=== PATIENT | male | born 1955 | race African-American/Black ===

== ENCOUNTER 2018-04-07 13:55 | Inpatient (IN) | payer OTHER, BC ==
[2018-04-07 14:04] VITALS: BMI 25.1
--- NOTE | 2018-04-07 14:42 | PDOC ---
Attending Attestation - HPI HPI: 04/07/18 16:19 The patient is a 63 year old male, with a significant PMH of hypertension, ESRD on dialysis M-W-, who presents to the emergency department with one day of oozing bleeding from left arm fistula after yesterday's dialysis session. The patient states he has gone through approx 8 bandages secondary to the left arm fistula bleeding. The patient denies chest pain, shortness of breath, headache and dizziness. Denies fever, chills, nausea, vomit, diarrhea and constipation. Denies dysuria, frequency, urgency and hematuria. Allergies: NKA <Akash Scott - Last Filed: 04/07/18 16:19> - Resident Resident Name: Rene Bailey - ED Attending Attestation I have performed the following: I have examined & evaluated the patient, The case was reviewed & discussed with the resident, I agree w/resident's findings & plan, Exceptions are as noted - Physicial Exam PE: 04/07/18 16:43 Agree with residents PE - Medical Decision Making 04/07/18 16:43 1 suture placed with good hemostasis under sterile conditions 5-0 nylon We'll check labs in the sitting 04/07/18 18:05 Reevaluation: Patient anemic INR 11 We will treat with vitamin K transfuse and admit to medicine for further management. Patient will require renal consultation for dialysis tomorrow. <Andrei Schneider - Last Filed: 04/07/18 18:07> Heart Score/ECG Review - ECG Impressions Comment:: 04/07/18 18:07 EKG performed at 1539 demonstrates sinus rhythm no ST elevations noted T-wave inversions. Interpreted by me. <Andrei Schneider - Last Filed: 04/07/18 18:07> Attestations - Attestations 04/07/18 16:19 Documentation prepared by Akash Scott, acting as medical and health services manager for Andrei Schneider MD. <Akash Scott - Last Filed: 04/07/18 16:19>
[2018-04-07 16:46] LABS: BASO % 0.5 % (0-2.0); EOS % 2.3 % (0-4.5); LYMPH % 12.4 % (8-40); MCH 33.9 pg (25.7-33.7); MEAN CELL VOLUME 102.9 fl (80-96); MEAN PLT VOLUME 7.7 fl (7.5-11.1); MONO % 9.1 % (3.8-10.2); NEUT % 75.7 % (42.8-82.8); PLATELET COUNT 256 K/MM3 (134-434); RBC 2.01 M/mm3 (4.00-5.60); RDW 15.5 % (11.9-15.9); WHITE BLOOD COUNT 9.7 K/mm3 (4.0-10.0)
[2018-04-07 16:58] LABS: HEMATOCRIT 20.7 % (35.4-49); HEMOGLOBIN 6.8 GM/dL (11.7-16.9)
--- NOTE | 2018-04-07 17:16 | PDOC ---
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 This has never happened before. The patient states he has gone through approx 8 bandages secondary to the left arm fistula bleeding. Also pt endorses feeling lightheaded and had a mechanical fall this morning but did not hit his head, he has not noticed any bruising on his body but does endorse R leg pain and difficulty ambulating w/ prosthetic. Pt says he did not take his warfarin last night. denies fevers, chills, cp,sob, EDDY, dizziness, n/v/d, numbness, tingling, weakness, dysuria, frequency, urgency and hematuria. PMH: as per hpi SH: denies smoke etoh drug use. ambulates w/ prosthetic FH: [place] ,[place] dad 69 Past History - Past Medical History Allergies/Adverse Reactions: Allergies Allergy/AdvReac Type Severity Reaction Status Date / Time No Known Allergies Allergy Verified 04/07/18 14:01 Home Medications: Ambulatory Orders Amlodipine Besylate 10 mg PO DAILY 04/07/18 Aspirin [ASA -] 81 mg PO DAILY 04/07/18 Atorvastatin Ca [Lipitor] 40 mg PO HS 04/07/18 B Complex W-C No.20/Folic Acid [Triphrocaps Softgel] 1 mg PO 04/07/18 Clopidogrel Bisulfate [Clopidogrel] 75 mg PO 04/07/18 Gabapentin 100 mg PO DAILY 04/07/18 Labetalol HCl [Normodyne -] 200 mg PO BID 04/07/18 Lisinopril [Prinivil -] 40 mg PO DAILY 04/07/18 Warfarin 9 mg PO DAILY 04/07/18 Zolpidem Tartrate [Ambien] 5 mg PO HS 04/07/18 Cardiac Disorders: Yes COPD: No Dialysis: Yes HTN: Yes Hypercholesterolemia: Yes - Surgical History Abdominal Surgery: Yes (HERNIA) - Suicide/Smoking/Psychosocial Hx Smoking History: Never smoked Have you smoked in the past 12 months: No Information on smoking cessation initiated: No Hx Alcohol Use: No Drug/Substance Use Hx: No Review of Systems - Review of Systems Constitutional: Yes: See HPI HEENTM: Yes: See HPI Respiratory: Yes: See HPI Cardiac (ROS): Yes: See HPI ABD/GI: Yes: See HPI : Yes: See HPI Musculoskeletal: Yes: See HPI Integumentary: Yes: See HPI Neurological: Yes: See HPI Endocrine: Yes: See HPI Hematologic/Lymphatic: Yes: See HPI *Physical Exam - Vital Signs Last Vital Signs Temp Pulse Resp BP Pulse Ox 97.8 F 79 18 121/64 100 04/07/18 14:01 04/07/18 14:01 04/07/18 14:01 04/07/18 14:01 04/07/18 14:01 - Physical Exam Comments: 04/07/18 17:42 General: NAD HEENT: NCAT, PERRLA, MMM, No erythema or exudates. conjunctival pallor Cardio: irregular irregular S1 S2 no m/r/g Lung: CTAB Abd: Soft +BS NTND EXT: radial pulses/DP/popliteal 2+. R BKA. RLE ttp at stump, no bruising or swelling, limb is warm. LUE AV fistula +bruit/thrill, blood oozing slowly at dialysis puncture site MSK: strength intact skin: grossly intact Neuro" AOX3, grossly intact ED Treatment Course - LABORATORY CBC & Chemistry Diagram: 04/07/18 16:18 04/07/18 16:18 - ADDITIONAL ORDERS Additional order review: 04/07/18 16:18 RBC 2.01 L MCV 102.9 H MCHC 33.0 RDW 15.5 MPV 7.7 Neutrophils % 75.7 Lymphocytes % 12.4 Monocytes % 9.1 Eosinophils % 2.3 Basophils % 0.5 - RADIOLOGY Radiology Studies Ordered: Category Date Time Status LEG TIB/FIB-RIGHT [RAD] Stat Radiology 04/07/18 14:34 Ordered Medical Decision Making - Medical Decision Making 04/07/18 17:49 63 year old M, with PMH of HTN, a-fib, ESRD on HD M-W-F, 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 -CBC, bmp, PT/INR -RLE xray -EKG 04/07/18 17:58 Hgb 6.8 w/ INR 11 will admit to inpatient hold warfarin will give vit K will obtain consent for 1U prbc 1 suture placed with good hemostasis under sterile conditions 5-0 nylon will add on PTT and CMP to labs FOBT 04/07/18 18:45 RLE xray shows no fracture 04/07/18 19:00 pt requesting to be transferred to [facility] where his care is. we called his PCP, Dr. lloyd [phone] to see if possible, waiting for call back. Pt refusing transfusion and rectal/FOBT until we here back from [facility] whether we can transfer. Explained the risks and benefits of transfusion. Pt has not signed consent yet and wants to wait on update w/ regards to possible transfer *DC/Admit/Observation/Transfer Diagnosis at time of Disposition: Bleeding diathesis, Abnormal INR - Referrals - Patient Instructions - Post Discharge Activity
[2018-04-07 17:31] LABS: INR 11.35 (0.83-1.09); PROTHROMBIN TIME (PATIENT) 128.3 SEC (9.7-13.0)
[2018-04-07] MEDS ORDERED: PHYTONADIONE 5 MG TABLET PO ONE (17:34)
[2018-04-07 17:40] LABS: ANION GAP 16 MMOL/L (8-16); BLOOD UREA NITROGEN 82 mg/dL (7-18); CHLORIDE 100 mmol/L (98-107); CO2 26 mmol/L (21-32); CREATININE 7.1 mg/dL (0.55-1.3); GLUCOSE,RANDOM 91 mg/dL (74-106); POTASSIUM 4.6 mmol/L (3.5-5.1); SODIUM 142 mmol/L (136-145)
[2018-04-07] MEDS ORDERED: PHYTONADIONE 5 MG TABLET ONE (17:42)
--- NOTE | 2018-04-07 20:27 | PDOC ---
*Physical Exam - Vital Signs Last Vital Signs Temp Pulse Resp BP Pulse Ox 98 F 77 18 129/74 98 04/07/18 20:04 04/07/18 20:04 04/07/18 20:04 04/07/18 20:04 04/07/18 20:04 ED Treatment Course - LABORATORY CBC & Chemistry Diagram: 04/07/18 16:18 04/07/18 20:45 - ADDITIONAL ORDERS Additional order review: Laboratory Results 04/07/18 04/07/18 04/07/18 16:18 16:18 16:18 PT with INR 128.30 H INR 11.35 H* Sodium 142 Potassium 4.6 Chloride 100 Carbon Dioxide 26 Anion Gap 16 BUN 82 H Creatinine 7.1 H Creat Clearance w eGFR 7.81 Random Glucose 91 Calcium 8.0 L Blood Type A POSITIVE Antibody Screen Negative 04/07/18 16:18 RBC 2.01 L MCV 102.9 H MCHC 33.0 RDW 15.5 MPV 7.7 Neutrophils % 75.7 Lymphocytes % 12.4 Monocytes % 9.1 Eosinophils % 2.3 Basophils % 0.5 - Medications Given in the ED: ED Medications Discontinued Medications Generic Name Dose Route Start Last Admin Trade Name Freq PRN Reason Stop Dose Admin Phytonadione 5 mg 04/07/18 17:34 04/07/18 18:05 Mephyton - PO 04/07/18 17:35 5 mg ONCE ONE Administration Medical Decision Making - Medical Decision Making 04/07/18 20:47 63yo M with ESRD presenting with bleeding left arm fistula, Hgb 6.8, INR=11 supratherapeutic. Patient initially refused to consent for transfusion because he preferred to receive his care at [facility] with his physician, Dr. Francis. Spoke with Dr. Francis who recommended patient staying at [facility]. Patient amenable to plan. Explained benefits and risks and patient voiced understanding. Consented patient for transfusion. Discussed case with Dr. Alvarado who will accept patient for admission. 04/07/18 20:47 *DC/Admit/Observation/Transfer Diagnosis at time of Disposition: Bleeding diathesis, Abnormal INR - Discharge Dispostion Condition at time of disposition: Guarded Decision to Admit order: Yes - Referrals - Patient Instructions - Post Discharge Activity
--- NOTE | 2018-04-07 20:44 | PN ---
Teaching Attending Note Name of Resident: Matthias Doan ATTENDING PHYSICIAN STATEMENT I saw and evaluated the patient. I reviewed the resident's note and discussed the case with the resident. I agree with the resident's findings and plan as documented. SUBJECTIVE: Patient presented c/o bleeding from dialysis access site and changing wound frequently. Patient reports getting up in the morning and feeling dizzy. Denies any chest pain, palpitations or SOB. PMH: HTN, DM2, ESRD on HD( MWF) OBJECTIVE: GEN: A&Ox3 NAD HEENT: NC, AT, PERRLA, EOMI CVS: RRR, S1, S2 LUNGS: CTA ABD: Soft NT, BS+, FOBT + Ext: Left AVF palpable thrill no active bleeding at time of examination, Nl ROM, , no Edema CBCD WBC 9.7 K/mm3 (4.0-10.0) 04/07/18 16:18 RBC 2.01 M/mm3 (4.00-5.60) L 04/07/18 16:18 Hgb 6.8 GM/dL (11.7-16.9) L* 04/07/18 16:18 Hct 20.7 % (35.4-49) L 04/07/18 16:18 MCV 102.9 fl (80-96) H 04/07/18 16:18 MCHC 33.0 g/dl (32.0-35.9) 04/07/18 16:18 RDW 15.5 % (11.9-15.9) 04/07/18 16:18 Plt Count 256 K/MM3 (134-434) 04/07/18 16:18 MPV 7.7 fl (7.5-11.1) 04/07/18 16:18 CMP Sodium 142 mmol/L (136-145) 04/07/18 16:18 Potassium 4.6 mmol/L (3.5-5.1) 04/07/18 16:18 Chloride 100 mmol/L (98-107) 04/07/18 16:18 Carbon Dioxide 26 mmol/L (21-32) 04/07/18 16:18 Anion Gap 16 MMOL/L (8-16) 04/07/18 16:18 BUN 82 mg/dL (7-18) H 04/07/18 16:18 Creatinine 7.1 mg/dL (0.55-1.3) H 04/07/18 16:18 Creat Clearance w eGFR 7.81 (>60) 04/07/18 16:18 Calcium 8.0 mg/dL (8.5-10.1) L 04/07/18 16:18 ASSESSMENT AND PLAN: Supratherapuetic INR VIt K given Hold warfarin Follow coag profile in AM Anemia secondary to acute blood loss Hemostasis achieved Type and screen Transfuse 1 unit pRBC Repeat CBC Consider GI consult as FOBT positive ESRD on HD ( MWF) Nephrology consulted for HD DVT prophylaxis no heparin as INR is supratherapeutic
--- NOTE | 2018-04-07 22:10 | HP ---
CHIEF COMPLAINT: PCP: Dr. Hicks [phone], [facility] HISTORY OF PRESENT ILLNESS: Pt is a 63 y/o gentleman with a significant past medical history of HTN, DM, right BKA 2/2 osteomyelitis, AFIB, and ESRD (HD on M/W/) who presented to [facility] this evening(04/07/18) c/o nonstop bleeding of his AV fistula located on his left arm. Pt endorses that he underwent HD yesterday afternoon around 1 pm and shortly after his session his fistula site began to bleed. Pt states he has used 8 bandages thus far as a result of the profuse bleeding. Pt awoke this am with blood oozing from his AV fistula. He has experienced bleeding from his AV fistula site before but not to this extent. Also endorses having fallen this afternoon on his right lower extremity stump after losing his balance while trying to grab an item from the top shelf in his kitchen. Pt denies any LOC or dizziness with his fall. ER course was notable for: (1) INR 11.35, H/H 6.8/20.7 respectively (2) + FOBT (3) Received 5 mg PO Vit-K in ED, Suture placed bleeding AV Fistula site. Recent Travel: Denies PAST MEDICAL HISTORY: Stent placement Aug 2017 s/p angiogram (on plavix). Pt states his A1c was 11.2% at some point but stopped taking his DM medications when his last a1c was around 5.5% PAST SURGICAL HISTORY: Hernia repair, Cataract Social History: Smoking: Denies Alcohol: Denies Drugs: Denies Family History: Dad (DM, from [place]), Mother(DM) Allergies No Known Allergies Allergy (Verified 04/07/18 14:01) HOME MEDICATIONS: Home Medications Medication Instructions Recorded Amlodipine Besylate 10 mg PO DAILY 04/07/18 Aspirin [ASA -] 81 mg PO DAILY 04/07/18 Atorvastatin Ca [Lipitor] 40 mg PO HS 04/07/18 B Complex W-C No.20/Folic Acid 1 mg PO 04/07/18 [Triphrocaps Softgel] Clopidogrel Bisulfate [Clopidogrel] 75 mg PO 04/07/18 Gabapentin 100 mg PO DAILY 04/07/18 Labetalol HCl [Normodyne -] 200 mg PO BID 04/07/18 Lisinopril [Prinivil -] 40 mg PO DAILY 04/07/18 Warfarin 9 mg PO DAILY 04/07/18 Zolpidem Tartrate [Ambien] 5 mg PO HS 04/07/18 REVIEW OF SYSTEMS CONSTITUTIONAL: Absent: fever, chills, diaphoresis, generalized weakness, malaise, loss of appetite, weight change HEENT: Absent: rhinorrhea, nasal congestion, throat pain, throat swelling, difficulty swallowing, mouth swelling, ear pain, eye pain, visual changes CARDIOVASCULAR: PRESENT: irregular heart rate, lightheadedness RESPIRATORY: Absent: cough, shortness of breath, dyspnea with exertion, orthopnea, wheezing, stridor, hemoptysis GASTROINTESTINAL: PRESENT: melena, GENITOURINARY: Absent: dysuria, frequency, urgency, hesitancy, hematuria, flank pain, genital pain MUSCULOSKELETAL: Absent: myalgia, arthralgia, joint swelling, back pain, neck pain SKIN: Absent: rash, itching, pallor HEMATOLOGIC/IMMUNOLOGIC: PRESENT: easy bleeding, easy bruising ENDOCRINE: Absent: unexplained weight gain, unexplained weight loss, heat intolerance, cold intolerance NEUROLOGIC: Absent: headache, focal weakness or paresthesias, dizziness, unsteady gait, seizure, mental status changes, bladder or bowel incontinence PSYCHIATRIC: Absent: anxiety, depression, suicidal or homicidal ideation, hallucinations. PHYSICAL EXAMINATION Vital Signs - 24 hr 04/07/18 04/07/18 14:01 20:04 Temperature 97.8 F 98 F Pulse Rate 79 Pulse Rate [ 77 Left] Respiratory 18 18 Rate Blood Pressure 121/64 Blood Pressure 129/74 [Arm] O2 Sat by Pulse 100 98 Oximetry (%) GENERAL: aaoX3, NAD HEAD: Nc/At EYES: PERRLA, EOMI, glasses EARS, NOSE, THROAT: MMM NECK: Supple LUNGS: CTA B/L HEART: Irregularly irregular ABDOMEN: Soft, ND, No HSM, NT, bruising left mid abdomen MUSCULOSKELETAL: Full ROM throughout UPPER EXTREMITIES: NO CCE LOWER EXTREMITIES: RIGHT BKA, NO ERYTHEMA OR INFECTION OF STUMP. WARM. NEUROLOGICAL: CN 2-12 INACT PSYCHIATRIC: Cooperative. Good eye contact. Appropriate mood and affect. SKIN: Warm, dry, normal turgor, no rashes or lesions noted. Laboratory Results - last 24 hr 04/07/18 04/07/18 04/07/18 16:18 16:18 16:18 WBC RBC Hgb Hct MCV MCH MCHC RDW Plt Count MPV Absolute Neuts (auto) Neutrophils % Lymphocytes % Monocytes % Eosinophils % Basophils % Nucleated RBC % PT with INR 128.30 H INR 11.35 H* PTT (Actin FS) Sodium 142 Potassium 4.6 Chloride 100 Carbon Dioxide 26 Anion Gap 16 BUN 82 H Creatinine 7.1 H Creat Clearance w eGFR 7.81 Random Glucose 91 Calcium 8.0 L Stool Occult Blood Blood Type A POSITIVE Antibody Screen Negative Crossmatch 04/07/18 04/07/18 04/07/18 16:18 16:18 20:45 WBC 9.7 RBC 2.01 L Hgb 6.8 L* Hct 20.7 L MCV 102.9 H MCH 33.9 H MCHC 33.0 RDW 15.5 Plt Count 256 MPV 7.7 Absolute Neuts (auto) 7.4 Neutrophils % 75.7 Lymphocytes % 12.4 Monocytes % 9.1 Eosinophils % 2.3 Basophils % 0.5 Nucleated RBC % 0 PT with INR INR PTT (Actin FS) 66.1 H Sodium Potassium Chloride Carbon Dioxide Anion Gap BUN Creatinine Creat Clearance w eGFR Random Glucose Calcium Stool Occult Blood Blood Type A POSITIVE Antibody Screen Crossmatch See Detail 04/07/18 21:25 WBC RBC Hgb Hct MCV MCH MCHC RDW Plt Count MPV Absolute Neuts (auto) Neutrophils % Lymphocytes % Monocytes % Eosinophils % Basophils % Nucleated RBC % PT with INR INR PTT (Actin FS) Sodium Potassium Chloride Carbon Dioxide Anion Gap BUN Creatinine Creat Clearance w eGFR Random Glucose Calcium Stool Occult Blood Positive Blood Type Antibody Screen Crossmatch ASSESSMENT/PLAN: 63 y/o gentleman with a significant past medical history of HTN, DM, right BKA 2 /2 osteomyelitis, AFIB, and ESRD (HD on //) who presented to [facility] this evening(04/07/18) c/o nonstop bleeding of his AV fistula located on his left arm. # Supratherapuetic INR -INR 11.35 on admission, repeat INR in am -H/H 6.8/20.7 on admission, repeat cbc in am -Hold Warfarin -Vit K when INR 9 or above, so VIT K given in ED Anemia 2/2 Acute Blood Loss or other unknown source? -Hemostasis achieved- suture applied in ED -Type and screen -Transfuse 1 unit pRBC -Repeat CBC in am G.I -Fecal Occult done in ED by myself, consider G.I consult. - Consider upper G.I Bleed as stool dark per patient and myself on exam ESRD on HD ( MWF) -Nephrology consulted for HD -Avoid Nephrotoxic agents DM -Repeat A1C -Pt off previous DM meds FEN DVT ppx SCD's FEN No Fluids Monitor Electrolytes Renal/Diabetic Diet Visit type - Emergency Visit Emergency Visit: Yes ED Registration Date: 04/07/18 Care time: The patient presented to the Emergency Department on the above date and was hospitalized for further evaluation of their emergent condition. - New Patient This patient is new to me today: Yes Date on this admission: 04/08/18 - Critical Care Critical Care patient: No Hospitalist Screening - Colonoscopy Questionnaire Colonoscopy Questionnaire: Colonoscopy Questionnaire - Patient: 50 - 75 years old and never had a screening colonoscopy: Unknown History of colon or rectal polyps, or CA: Unknown History of IBD, Crohn's disease or UC: Unknown History of abdominal radiation therapy as a child: Unknown - Relative: 1 with colon or rectal CA, or polyps at age 60 or younger: Unknown Colon or rectal CA diagnosed at age 45 or younger: Unknown Multiple relatives with colon or rectal CA: Unknown - Outcome: Screening Result: Negative Screen
[2018-04-07 22:46] LABS: ALK PHOS 50 U/L (45-117); ANION GAP 17 MMOL/L (8-16); BILIRUBIN,TOTAL 0.5 mg/dL (0.2-1); BLOOD UREA NITROGEN 89 mg/dL (7-18); CHLORIDE 100 mmol/L (98-107); CO2 24 mmol/L (21-32); GLUCOSE,RANDOM 154 mg/dL (74-106); POTASSIUM 4.4 mmol/L (3.5-5.1); SGOT/AST 20 U/L (15-37); SGPT/ALT 26 U/L (13-61); SODIUM 141 mmol/L (136-145); TOT PROT 5.7 g/dl (6.4-8.2)
[2018-04-07 22:47] LABS: CREATININE 7.6 mg/dL (0.55-1.3)
[2018-04-08] MEDS: LIDOCAINE 5% TOPICAL PATCH TP SCH ×2 (00:15→11:26)
[2018-04-08] MEDS: LIDOCAINE PATCH REMOVAL MC SCH ×2 (00:16→21:20)
[2018-04-08] MEDS ORDERED: MELATONIN 5 MG TABLETS PO ONE ×2 (01:42→20:40)
[2018-04-08 08:08] LABS: BASO % 0.7 % (0-2.0); EOS % 2.9 % (0-4.5); LYMPH % 16.7 % (8-40); MCH 32.7 pg (25.7-33.7); MCHC 33.3 g/dl (32.0-35.9); MEAN CELL VOLUME 98.3 fl (80-96); MEAN PLT VOLUME 7.9 fl (7.5-11.1); MONO % 9.1 % (3.8-10.2); NEUT % 70.6 % (42.8-82.8); PLATELET COUNT 210 K/MM3 (134-434); RBC 2.03 M/mm3 (4.00-5.60); RDW 18.3 % (11.9-15.9); WHITE BLOOD COUNT 9.6 K/mm3 (4.0-10.0)
[2018-04-08 08:20] LABS: HEMOGLOBIN 6.6 GM/dL (11.7-16.9)
[2018-04-08 08:22] LABS: PROTHROMBIN TIME (PATIENT) 73.5 SEC (9.7-13.0)
[2018-04-08 08:24] LABS: ACTIVATED PTT 56.9 SECONDS (25.2-36.5)
[2018-04-08 08:27] LABS: INR 6.5 (0.83-1.09)
[2018-04-08 09:14] LABS: ANION GAP 16 MMOL/L (8-16); BLOOD UREA NITROGEN 98 mg/dL (7-18); CALCIUM 7.8 mg/dL (8.5-10.1); CHLORIDE 100 mmol/L (98-107); CO2 26 mmol/L (21-32); GLUCOSE,RANDOM 74 mg/dL (74-106); MAGNESIUM 2.2 mg/dL (1.8-2.4); PHOSPHOROUS 5.4 mg/dL (2.5-4.9); POTASSIUM 4.8 mmol/L (3.5-5.1); SODIUM 141 mmol/L (136-145)
[2018-04-08 09:35] LABS: CREATININE 8.6 mg/dL (0.55-1.3)
[2018-04-08] MEDS ORDERED: FLU VACCINE QUAD 60 MCG/0.5 ML (MDV 18-19) IM ONE (10:00)
[2018-04-08] MEDS ORDERED: CLOPIDOGREL BISULFATE 75 MG TABLET (FP) PO SCH (10:00)
--- NOTE | 2018-04-08 10:12 | CON.GI ---
Consult Consult Specialty:: GI Referred by:: Hospitalist Service Reason for Consultation:: Anemia - History of Present Illness Chief Complaint: Bleeding from AV fistula History of Present Illness: 63M admitted for evaluation of persistent bleeding from left arm AV fistula. Hgb was noted to be 6.8 and INR 11.35. He was given vitamin K and INR 6.5 today. He was given 1 U PRBC last night and Hgb this morning was 6.6. Asked to evaluate anemia and guaiac positive stool. He is also maintained on Plavix and intermittently with aspirin for cardiac stent placed in of this year. Last took plavix wednesday morning. He denies nausea, vomiting, dysphagia, odynophagia, early satiety, significant reflux symptoms, abdominal pain, unintentional weight loss, overt rectal bleeding, change in bowel habits. His stool has been dark since starting iron earlier in the year. It is unclear what his baseline H/H is. He has never had an upper endoscopy or colonoscopy. There is no family history of colorectal cancer. He is to receive 1 U PRBC now and one during HD today. - History Source History Provided By: Patient, Medical Record Limitations to Obtaining History: No Limitations - Past Medical History Cardio/Vascular: Yes: AFIB, CAD (S/P cardiac stent or 10/27), HTN, Hyperlipdemia Renal/: Yes: Renal Failure (ESRD on HD M/W/F) Endocrine: Yes: Diabetes Mellitus (DM II) - Past Surgical History Past Surgical History: Yes: Amputation (Right BKA), Hernia Repair (right inguinal hernia repair) Additional Surgical History: Left arm AV fistula - Alcohol/Substance Use Hx Alcohol Use: No History of Substance Use: reports: None - Smoking History Smoking history: Never smoked Have you smoked in the past 12 months: No - Social History Usual Living Arrangement: Alone ADL: Independent 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 : [facility] History of Recent Travel: No Home Medications - Allergies Allergies/Adverse Reactions: Allergies Allergy/AdvReac Type Severity Reaction Status Date / Time No Known Allergies Allergy Verified 04/07/18 14:01 - Home Medications Home Medications: Ambulatory Orders Amlodipine Besylate 10 mg PO DAILY 04/07/18 Aspirin [ASA -] 81 mg PO DAILY 04/07/18 Atorvastatin Ca [Lipitor] 40 mg PO HS 04/07/18 B Complex W-C No.20/Folic Acid [Triphrocaps Softgel] 1 mg PO 04/07/18 Clopidogrel Bisulfate [Clopidogrel] 75 mg PO 04/07/18 Gabapentin 100 mg PO DAILY 04/07/18 Labetalol HCl [Normodyne -] 200 mg PO BID 04/07/18 Lisinopril [Prinivil -] 40 mg PO DAILY 04/07/18 Warfarin 9 mg PO DAILY 04/07/18 Zolpidem Tartrate [Ambien] 5 mg PO HS 04/07/18 Family Disease History - Family Disease History Family Disease History: Other: Father (: 69: [place]), Mother (: 69: diabetic complications), Brother (1, pancreatic cancer), Sister (1, healthy), Son (3, 1 with DM II), Daughter (1, healthy) Other Family History: No family history of colon cancer Review of Systems - Review of Systems Constitutional: denies: Chills Cardiovascular: denies: Chest Pain Respiratory: denies: Cough, SOB Physical Exam-GI Vital Signs: Vital Signs Temperature 98.3 F 04/08/18 06:00 Pulse Rate 85 04/08/18 06:00 Respiratory Rate 16 04/08/18 06:00 Blood Pressure 128/62 04/08/18 06:00 O2 Sat by Pulse Oximetry (%) 100 04/08/18 04:01 Constitutional: Yes: Calm Eyes: No: Sclera Icterus Cardiovascular: Yes: Regular Rate and Rhythm, Murmur (2/6 systolic murmur th the LSB) Respiratory: Yes: CTA Bilaterally Gastrointestinal Inspection: Yes: Scars (faint right inguinal scar). No: Distention, Hernia ...Auscultate: Yes: Normoactive Bowel Sounds ...Palpate: No: Hepatomegaly, Splenomegaly, Tenderness ...Percussion: No: Tympanitic ...Rectal Exam: Yes: Other (No external lesions, no masses, dark stool, guaiac positive, 2 + prostate) Extremities: Yes: Other (right BKA prosthesis) Edema: No (No LLE edema) Labs: CBC, BMP 04/08/18 07:00 04/08/18 07:00 INR, PTT INR 6.50 (0.83-1.09) H* 04/08/18 07:00 Problem List - Problems (1) Anemia Assessment/Plan: Likely multifactorial including ESRD, bleeding from AV fistula and GI blood losses in setting of supratherapeutic INR I discussed this from a GI standpoint with Mr. Hansen and explained that while having an INR that high can lead to bleeding from even small erosions or mucosal irritations in the GI tact, more significant pathologu such as PUD, bleeding blood vessels, polyps or cancers of the GI tgract such as colon cancer could not be excluded. His stool is dark but has been so since initiating iron therapy. To evaluate further, we discussed EGD/Colonoscopy when his INR permits. We discussed potential risks of the procedures like but not limited to bleeding, perforation requiring surgery to repair, infection and sedation medication effects all of which could be potentially life threatening. He has agreed to the procedures is they were felt to be medically necessary For now: Clear liquids Correct coagulopathy Protonix 40mg PO BID. If development of overt melena, change to PPI drip, keep NPO and transfer to ICU Discuss with cardiology re: need for continued Plavix at this time. Discussed with hospitalist service Plan for possible EGD/Colonoscopy Wednesday 04/11 Code(s): D64.9 - ANEMIA, UNSPECIFIED
--- NOTE | 2018-04-08 10:50 | PN ---
Progress Note (short form) - Note Progress Note: After further discussion, Mr. Hansen requesting to be transferred to [facility] as all his physicianss are there. I let his nurse know and I advised that he speak to his medical team regarding this. Problem List - Problems (1) Anemia Code(s): D64.9 - ANEMIA, UNSPECIFIED
[2018-04-08] MEDS ORDERED: SODIUM CHLORIDE 250 ML IV PRN (11:21)
[2018-04-08] MEDS: PANTOPRAZOLE 40 MG TABLET (FP) PO SCH ×2 (11:26→21:17)
--- NOTE | 2018-04-08 11:26 | EKG ---
Test Reason : Blood Pressure : / mmHG Vent. Rate : 073 BPM Atrial Rate : 073 BPM P-R Int : 164 ms QRS Dur : 082 ms QT Int : 412 ms P-R-T Axes : 045 008 046 degrees QTc Int : 453 ms NORMAL SINUS RHYTHM WITH SINUS ARRHYTHMIA NORMAL ECG NO PREVIOUS ECGS AVAILABLE Confirmed by SUJATA GRAY, MELY ([id number]) on 04/08/2018 11:25:37 AM Referred By: Confirmed By:MELY ERNST MD
--- NOTE | 2018-04-08 11:29 | CONSULT ---
Consult - text type - Consultation Consultation Note: Renal Consult for ESRD on HD This is a 63 year old gentleman with Hx of ESRD on HD (x 3 years secondary to diabetic nephropathy @ [facility] dialysis in [facility]), Hypertension, DM , PVD s/p right leg amputation, Afib on A/C who presented from home with bleeding from his AVF site and found to have INR of 11 and Hgb of 6. Pt denies any cp, sob, abd pain, N/V/D. Makes minimal urine at this time. s/p suture placement in AVF site yesterday with cessation of bleeding. Last HD was Wednesday. Has dark stools at home but is on oral iron supplement. PMHx: as above Allergies: NKDA Family Hx: NC Social hx: No T/A/D ROS: as per HPI Home Medications Medication Instructions Recorded Amlodipine Besylate 10 mg PO DAILY 04/07/18 Aspirin [ASA -] 81 mg PO DAILY 04/07/18 Atorvastatin Ca [Lipitor] 40 mg PO HS 04/07/18 B Complex W-C No.20/Folic Acid 1 mg PO 04/07/18 [Triphrocaps Softgel] Clopidogrel Bisulfate [Clopidogrel] 75 mg PO 04/07/18 Gabapentin 100 mg PO DAILY 04/07/18 Labetalol HCl [Normodyne -] 200 mg PO BID 04/07/18 Lisinopril [Prinivil -] 40 mg PO DAILY 04/07/18 Warfarin 9 mg PO DAILY 04/07/18 Zolpidem Tartrate [Ambien] 5 mg PO HS 04/07/18 Vital Signs Temperature 98.3 F 04/08/18 06:00 Pulse Rate 85 04/08/18 06:00 Respiratory Rate 16 04/08/18 06:00 Blood Pressure 128/62 04/08/18 06:00 O2 Sat by Pulse Oximetry (%) 100 04/08/18 04:01 Intake & Output 04/05/18 04/06/18 04/07/18 04/08/18 23:59 23:59 23:59 23:59 Intake Total 400 Balance 400 Weight 81.647 kg 81.647 kg NAD Awake and alert Neck supple, no JVD RRR, no M/R CTA, no rales soft NT/ND Right BKA No LE edema left arm AVF CBC, BMP 04/08/18 07:00 04/08/18 07:00 Current Medications Clopidogrel Bisulfate (Plavix -) 75 mg PO DAILY [facility] Last Admin: 04/08/18 10:27 Dose: Not Given Sodium Chloride (Normal Saline -) 250 mls @ 3,000 mls/hr IV PRN PRN PRN Reason: Hypotension during Dialysis Stop: 04/09/18 11:21 Lidocaine (Lidoderm Patch -) 1 patch TP DAILY [facility] Last Admin: 04/08/18 11:26 Dose: 1 patch Miscellaneous (Lidoderm Patch Removal) 1 each MC DAILY@2200 [facility] Last Admin: 04/08/18 00:16 Dose: Not Given Pantoprazole Sodium (Protonix -) 40 mg PO BID [facility] Last Admin: 04/08/18 11:26 Dose: 40 mg 63 year old gentleman with Hx of ESRD on HD (x 3 years secondary to diabetic nephropathy @ [facility] in [facility]), Hypertension, DM, PVD s/p right leg amputation, Afib on A/C who presented from home with bleeding from his AVF site and found to have INR of 11 and Hgb of 6. #Acute anemia from blood loss #Supratheraputic INR #ESRD on HD #Suspected GI bleed #Hypetension #DM getting 2nd PRBC transfusion now, will give additional unit with HD today HD today as per regular Rx Renal diet, 1.2L fluid restriction GI following Holding A/C Trend INR and H/H Can resume home BP meds if BP starts to run high check Fingerstcks Thank you Will follow Kenji Sung DO
--- NOTE | 2018-04-08 12:08 | CON.CARD ---
Consult Consult Specialty:: Cardiology Referred by:: Hospitalist Medicine Reason for Consultation:: Antiplatelet and anticoagulation guidance - History of Present Illness Chief Complaint: Left bleeding AVF History of Present Illness: 63M Hx of ESRD on HD (x 3 years secondary to diabetic nephropathy @ [facility] dialysis in [facility]), Hypertension, DM, PVD s/p right BKA, Afib on A/C with coumadin per INR, CAD s/p ALEC to prox RCA December 16, 2017 at [facility] (report [email or web address]) on Plavix presented from home with bleeding from his AVF site, guaiac positive stools and found to have INR of 11.35 and Hgb of 6.8, received vit K and 1 U pRBC with resultant Hgb 6.6 and INR 6.50. Patient reports fatigue , but denies any cp, sob, abd pain, N/V/D. Makes minimal urine at this time. s/ p suture placement in AVF site yesterday with cessation of bleeding. Last HD was Wednesday. Has dark stools at home but is on oral iron supplement. - Past Medical History Cardio/Vascular: Yes: AFIB, CAD (S/P cardiac stent or 10/27), HTN, Hyperlipdemia Renal/: Yes: Renal Failure (ESRD on HD M/W/) Endocrine: Yes: Diabetes Mellitus (DM II) - Past Surgical History Past Surgical History: Yes: Amputation (Right BKA), Hernia Repair (right inguinal hernia repair), Stent Additional Surgical History: Left arm AV fistula - Alcohol/Substance Use Hx Alcohol Use: No History of Substance Use: reports: None - Smoking History Smoking history: Never smoked Have you smoked in the past 12 months: No - Social History Usual Living Arrangement: Alone ADL: Independent 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 History of Recent Travel: No Home Medications - Allergies Allergies/Adverse Reactions: Allergies Allergy/AdvReac Type Severity Reaction Status Date / Time No Known Allergies Allergy Verified 04/07/18 14:01 - Home Medications Home Medications: Ambulatory Orders Amlodipine Besylate 10 mg PO DAILY 04/07/18 Aspirin [ASA -] 81 mg PO DAILY 04/07/18 Atorvastatin Ca [Lipitor] 40 mg PO HS 04/07/18 B Complex W-C No.20/Folic Acid [Triphrocaps Softgel] 1 mg PO 04/07/18 Clopidogrel Bisulfate [Clopidogrel] 75 mg PO 04/07/18 Gabapentin 100 mg PO DAILY 04/07/18 Labetalol HCl [Normodyne -] 200 mg PO BID 04/07/18 Lisinopril [Prinivil -] 40 mg PO DAILY 04/07/18 Warfarin 9 mg PO DAILY 04/07/18 Zolpidem Tartrate [Ambien] 5 mg PO HS 04/07/18 Family Disease History - Family Disease History Family Disease History: Other: Father (: 69: MD), Mother (: 69: diabetic complications), Brother (1, pancreatic cancer), Sister (1, healthy), Son (3, 1 with DM II), Daughter (1, healthy) Other Family History: No family history of colon cancer Review of Systems - Review of Systems Constitutional: reports: Weakness Eyes: reports: No Symptoms HENT: reports: No Symptoms Neck: reports: No Symptoms Cardiovascular: reports: No Symptoms Respiratory: reports: No Symptoms Gastrointestinal: reports: Other (Guaiac positive) Genitourinary: reports: No Symptoms Musculoskeletal: reports: No Symptoms Neurological: reports: Weakness Endocrine: reports: No Symptoms Hematology/Lymphatic: reports: Excessive Bleeding Vital Signs: Vital Signs Temperature 98.3 F 04/08/18 06:00 Pulse Rate 85 04/08/18 06:00 Respiratory Rate 16 04/08/18 06:00 Blood Pressure 128/62 04/08/18 06:00 O2 Sat by Pulse Oximetry (%) 100 04/08/18 04:01 Constitutional: Yes: No Distress, Calm, Thin Neck: Yes: Supple Respiratory: Yes: Regular, CTA Bilaterally Gastrointestinal: Yes: Normal Bowel Sounds, Soft Cardiovascular: Yes: Regular Rate and Rhythm JVD: No Carotid Bruit: No Heart Sounds: Yes: S1, S2 Extremities: Yes: Amputation (Right BKA) Edema: No - Other Data Labs, Other Data: CBC, BMP 04/08/18 07:00 04/08/18 07:00 INR, PTT INR 6.50 (0.83-1.09) H* 04/08/18 07:00 NSR @ [address]-T changes Prior Cardiac Procedures: PTCA with Stent Problem List - Problems (1) Presence of drug-eluting stent in right coronary artery Code(s): Z95.5 - PRESENCE OF CORONARY ANGIOPLASTY IMPLANT AND GRAFT (2) Coronary artery disease Code(s): I25.10 - ATHSCL HEART DISEASE OF [place] CORONARY ARTERY W/O ANG PCTRS Qualifiers: Coronary Disease-Associated Artery/Lesion type: [place] artery [place] vs. transplanted heart: [place] heart Associated angina: without angina Qualified Code(s): I25.10 - Atherosclerotic heart disease of [place] coronary artery without angina pectoris (3) Pre-procedural cardiovascular examination Code(s): Z01.810 - ENCOUNTER FOR PREPROCEDURAL CARDIOVASCULAR EXAMINATION (4) Supratherapeutic INR Code(s): R79.1 - ABNORMAL COAGULATION PROFILE (5) End-stage renal disease Code(s): N18.6 - END STAGE RENAL DISEASE (6) Hyperlipidemia Code(s): E78.5 - HYPERLIPIDEMIA, UNSPECIFIED Qualifiers: Hyperlipidemia type: pure hypercholesterolemia Qualified Code(s): E78.00 - Pure hypercholesterolemia, unspecified; E78.0 - Pure hypercholesterolemia (7) Hypertensive cardiomyopathy Code(s): I11.9 - HYPERTENSIVE HEART DISEASE WITHOUT HEART FAILURE; I43 - CARDIOMYOPATHY IN DISEASES CLASSIFIED ELSEWHERE Qualifiers: Heart failure presence: without heart failure Qualified Code(s): I11.9 - Hypertensive heart disease without heart failure; I43 - Cardiomyopathy in diseases classified elsewhere (8) Anemia Code(s): D64.9 - ANEMIA, UNSPECIFIED Qualifiers: Iron deficiency anemia type: chronic blood loss (9) Bleeding diathesis Code(s): D69.9 - HEMORRHAGIC CONDITION, UNSPECIFIED (10) Paroxysmal atrial fibrillation Code(s): I48.0 - PAROXYSMAL ATRIAL FIBRILLATION Assessment/Plan 12/16/2017 [facility]: ALEC 85% ostial and prox RCA 1. Acute anemia from blood loss DDX includes ESRD and uremic platelets and Plavix, bleeding from AV fistula and GI blood losses in setting of supratherapeutic INR 2. ESRD on HD (x 3 years secondary to diabetic nephropathy @ [facility] dialysis in [facility]) 3. CAD s/p ALEC pRCA 12/16/2017 4. Hypertension 5. Type 2 DM 6. Paroxysmal afib on coumadin per INR 7. PAD s/p right BKA 8. Hyperlipidemia P:1. Correcting coagulopathy, hold Plavix awaiting achievement of hemostasis, reviewed cath report from [facility] 2. Transfuse pRBC to maintain Hgb>8.0 3. HD per renal 4. Resume Lipitor 40 qhs, Labetolol 200 bid, Norvasc 10 qd and lisinopril 40 qd as hemodynamics tolerate 5. Given absence of symptoms of acute coronary syndrome, decompensated CHF and malignant arrhythmia, and recent coronary revascularization 12/16/2017, may proceed with EGD/colonoscopy without further cardiovascular testing. Given recent ALEC implantation, resume ASA 81 qd tanner-procedure once INR<2.0, otherwise resume Plavix 75 qd once INR<2.0 if procedures are not planned, agree with maintenance on Plavix alone without ASA while on concomitant anticoagulation. Consideration for switch from coumadin to Eliquis 5 bid given difficulty with INR control, d/w patient. 6. Protonix 40 bid per GI 7. Thank you for consultative opportunity
[2018-04-08 14:34] LABS: HEMATOCRIT 20.1 % (35.4-49); MCH 32.4 pg (25.7-33.7); MCHC 33.4 g/dl (32.0-35.9); MEAN PLT VOLUME 8.2 fl (7.5-11.1); PLATELET COUNT 202 K/MM3 (134-434); RBC 2.07 M/mm3 (4.00-5.60); RDW 18.1 % (11.9-15.9); WHITE BLOOD COUNT 10.2 K/mm3 (4.0-10.0)
[2018-04-08 14:42] LABS: HEMOGLOBIN 6.7 GM/dL (11.7-16.9)
--- NOTE | 2018-04-08 15:11 | PN ---
Progress Note (short form) - Note Progress Note: Hgb was 6.7 at start of dialysis despite 1 unit transfusion this am on the floor. Will give 2 units PRBC transfusion with HD. Kenji Sung DO
--- NOTE | 2018-04-08 17:58 | PN ---
Teaching Attending Note Name of Resident: Jessica Hodge ATTENDING PHYSICIAN STATEMENT I saw and evaluated the patient. I reviewed the resident's note and discussed the case with the resident. I agree with the resident's findings and plan as documented with exceptions below. SUBJECTIVE: patient seen and examined. Denies any chest pain, palpitations, dyspnea or dizziness. Denies any further bleeding for AV fistula site. Dark stools for months, reports since started on iron pills. No chest pain, palpitations, dyspnea or dizziness or abdominal pain noted. OBJECTIVE: Vital Signs Period Temp Pulse Resp BP Sys/Gonzáles Pulse Ox Last 24 Hr 97.6 F-98.5 F 74-88 16-19 114-179/51-100 98-100 Intake & Output 04/05/18 04/06/18 04/07/18 04/08/18 23:59 23:59 23:59 23:59 Intake Total 850 Balance 850 Weight 180 lb 180 lb General: sitting in bed in no acute distress CVS;S1S2 regular Chest; CTAB, no rales or wheezing Abdomen: soft, NT throughout, ND, positive bowel sounds Extremities: no edema, Left AV fistula site with 1 suture, no active bleed, clean band-aid noted Active Medications Clopidogrel Bisulfate (Plavix -) 75 mg PO DAILY [facility] Last Admin: 04/08/18 10:27 Dose: Not Given Sodium Chloride (Normal Saline -) 250 mls @ 3,000 mls/hr IV PRN PRN PRN Reason: Hypotension during Dialysis Stop: 04/09/18 11:21 Labetalol HCl (Normodyne -) 100 mg PO BID [facility] Lidocaine (Lidoderm Patch -) 1 patch TP DAILY [facility] Last Admin: 04/08/18 11:26 Dose: 1 patch Miscellaneous (Lidoderm Patch Removal) 1 each MC DAILY@2200 [facility] Last Admin: 04/08/18 00:16 Dose: Not Given Pantoprazole Sodium (Protonix -) 40 mg PO BID [facility] Last Admin: 04/08/18 11:26 Dose: 40 mg Laboratory Results - last 24 hr 04/07/18 04/07/18 04/07/18 16:18 16:18 20:45 WBC RBC Hgb Hct MCV MCH MCHC RDW Plt Count MPV Absolute Neuts (auto) Neutrophils % Lymphocytes % Monocytes % Eosinophils % Basophils % Nucleated RBC % PT with INR INR PTT (Actin FS) 66.1 H Sodium 141 Potassium 4.4 Chloride 100 Carbon Dioxide 24 Anion Gap 17 H BUN 89 H Creatinine 7.6 H* Creat Clearance w eGFR 7.22 POC Glucometer Random Glucose 154 H Calcium 8.0 L Phosphorus Magnesium Total Bilirubin 0.5 AST 20 ALT 26 Alkaline Phosphatase 50 Total Protein 5.7 L Albumin 3.0 L Stool Occult Blood Blood Type A POSITIVE Antibody Screen Negative Crossmatch 04/07/18 04/07/18 04/08/18 20:45 21:25 07:00 WBC 9.6 RBC 2.03 L Hgb 6.6 L* Hct 20.0 L MCV 98.3 H MCH 32.7 MCHC 33.3 RDW 18.3 H Plt Count 210 MPV 7.9 Absolute Neuts (auto) 6.8 Neutrophils % 70.6 Lymphocytes % 16.7 D Monocytes % 9.1 Eosinophils % 2.9 Basophils % 0.7 Nucleated RBC % 0 PT with INR INR PTT (Actin FS) Sodium Potassium Chloride Carbon Dioxide Anion Gap BUN Creatinine Creat Clearance w eGFR POC Glucometer Random Glucose Calcium Phosphorus Magnesium Total Bilirubin AST ALT Alkaline Phosphatase Total Protein Albumin Stool Occult Blood Positive Blood Type A POSITIVE Antibody Screen Crossmatch See Detail 04/08/18 04/08/18 04/08/18 07:00 07:00 07:17 WBC RBC Hgb Hct MCV MCH MCHC RDW Plt Count MPV Absolute Neuts (auto) Neutrophils % Lymphocytes % Monocytes % Eosinophils % Basophils % Nucleated RBC % PT with INR 73.50 H INR 6.50 H* PTT (Actin FS) 56.9 H Sodium 141 Potassium 4.8 Chloride 100 Carbon Dioxide 26 Anion Gap 16 BUN 98 H Creatinine 8.6 H* Creat Clearance w eGFR 6.26 POC Glucometer 92 Random Glucose 74 Calcium 7.8 L Phosphorus 5.4 H Magnesium 2.2 Total Bilirubin AST ALT Alkaline Phosphatase Total Protein Albumin Stool Occult Blood Blood Type Antibody Screen Crossmatch 04/08/18 13:55 WBC 10.2 H RBC 2.07 L Hgb 6.7 L* Hct 20.1 L MCV 97.0 H MCH 32.4 MCHC 33.4 RDW 18.1 H Plt Count 202 MPV 8.2 Absolute Neuts (auto) Neutrophils % Lymphocytes % Monocytes % Eosinophils % Basophils % Nucleated RBC % PT with INR INR PTT (Actin FS) Sodium Potassium Chloride Carbon Dioxide Anion Gap BUN Creatinine Creat Clearance w eGFR POC Glucometer Random Glucose Calcium Phosphorus Magnesium Total Bilirubin AST ALT Alkaline Phosphatase Total Protein Albumin Stool Occult Blood Blood Type Antibody Screen Crossmatch CXr results reviewed EKG NSR with sinus arrhythmia ASSESSMENT AND PLAN: 63 yom with PMHx of ESRD on HD (x 3 years secondary to diabetic nephropathy @ [facility] dialysis in [facility]), Hypertension, DM, PVD s/p right BKA, Afib on A/C with coumadin per INR, CAD s/p ALEC to prox RCA December 16, 2017 at [facility] on Plavix, admitted with bleeding from Av fistula site, coumadin coagulopathy (INR 11), and dark stools for months -Bleeding from AV fistula site s/p suture, hemostasis achieved -Coumadin coagulopathy, ?etiology, incorrect dosing -Acute on chronic anemia, from AV fistula bleed, r/o bleed/hematoma -Chronic dark stools, ?melena, reports since iron supplementation -ESRD on HD (being worked up for transplant) -HTN -NIDDM -PVD s/p Right BKA -CAD s/p ALEC to Prox RCA 12/16/2017 Plan: No further fistula site bleed. s/p 2 units of PRBC, unchanged Hb but hemodynamics stable, no gross evidence of bleed. Additional 2 units with HD today. Repeat h/h and INR. s/p vitamin K 5 mg in ED. No gross evidence of bleed, or hemodynamic instability. INR trending down, repeat later today, additional reversal accordingly. CT A/P to r/o hematoma. Monitor vitals closely. GI input appreciated. Clears, protonix BID. EGD/colonoscopy based on clinical course. Hypertensive now, resume labetalol with close monitoring. Hold amlodipine for now. ISS, diabetic diet. Cardiology input appreciated, ASA/plavix per Cardiology/GI and clinical course. Retrieve further info about recent coumadin dosing, INR check. ?incorrect administration. DVTPPX not currently indicated. Dispo patient requested transfer to [facility]. Called [facility] Transfer center, case discussed with Dr. Mejia. Called back, declined for transfer. Will monitor closely. Total care time spent including patient visit, discussion with Dr Sung, Dr. Quintero, [facility] transfer center and co-ordination of care 45 min.
[2018-04-08 18:58] LABS: HEMATOCRIT 24.8 % (35.4-49); HEMOGLOBIN 8.5 GM/dL (11.7-16.9); MCH 31.5 pg (25.7-33.7); MCHC 34.1 g/dl (32.0-35.9); MEAN CELL VOLUME 92.2 fl (80-96); MEAN PLT VOLUME 8.1 fl (7.5-11.1); PLATELET COUNT 225 K/MM3 (134-434); RDW 19.3 % (11.9-15.9); WHITE BLOOD COUNT 10.2 K/mm3 (4.0-10.0)
[2018-04-08] MEDS: LABETALOL HCL 100 MG TABLET (FP) PO SCH (19:00)
[2018-04-08 19:21] LABS: INR 3.83 (0.83-1.09); PROTHROMBIN TIME (PATIENT) 45.8 SEC (9.7-13.0)
--- NOTE | 2018-04-08 19:31 | PN ---
Physical Exam: SUBJECTIVE: Patient seen and examined at bedside this morning. Patient has no new complaints and reports no longer bleeding on the AV fistula. Patient denies chest pain, SOB, palpitations, abdominal pain, diarrhea, constipation. OBJECTIVE: Vital Signs Period Temp Pulse Resp BP Sys/Gonzáles Pulse Ox Last 24 Hr 97.6 F-98.5 F 74-88 16-19 114-179/51-100 98-100 GENERAL: The patient is awake, alert, and fully oriented, in no acute distress. HEAD: Normal with no signs of trauma. EYES: PERRLA, EOMI, sclera anicteric, conjunctiva clear. ENT: Ears normal, nares patent, oropharynx clear without exudates, moist mucous membranes. LUNGS: Breath sounds equal, clear to auscultation bilaterally, no wheezes, no crackles, no accessory muscle use. HEART: Regular rate and rhythm, S1, S2 without murmur, rub or gallop. ABDOMEN: Soft, nontender, nondistended, normoactive bowel sounds. EXTREMITIES: 2+ pulses, warm, well-perfused, no edema. Left AV fistula site: clean, no bleeding NEUROLOGICAL: Cranial nerves II through XII grossly intact. Normal speech, gait not observed. PSYCH: Normal mood, normal affect. SKIN: Warm, dry, normal turgor, no rashes or lesions noted Laboratory Results - last 24 hr 04/07/18 04/07/18 04/07/18 16:18 20:45 20:45 WBC RBC Hgb Hct MCV MCH MCHC RDW Plt Count MPV Absolute Neuts (auto) Neutrophils % Lymphocytes % Monocytes % Eosinophils % Basophils % Nucleated RBC % PT with INR INR PTT (Actin FS) 66.1 H Sodium 141 Potassium 4.4 Chloride 100 Carbon Dioxide 24 Anion Gap 17 H BUN 89 H Creatinine 7.6 H* Creat Clearance w eGFR 7.22 POC Glucometer Random Glucose 154 H Calcium 8.0 L Phosphorus Magnesium Total Bilirubin 0.5 AST 20 ALT 26 Alkaline Phosphatase 50 Total Protein 5.7 L Albumin 3.0 L Stool Occult Blood Blood Type A POSITIVE Crossmatch See Detail 04/07/18 04/08/18 04/08/18 21:25 07:00 07:00 WBC 9.6 RBC 2.03 L Hgb 6.6 L* Hct 20.0 L MCV 98.3 H MCH 32.7 MCHC 33.3 RDW 18.3 H Plt Count 210 MPV 7.9 Absolute Neuts (auto) 6.8 Neutrophils % 70.6 Lymphocytes % 16.7 D Monocytes % 9.1 Eosinophils % 2.9 Basophils % 0.7 Nucleated RBC % 0 PT with INR 73.50 H INR 6.50 H* PTT (Actin FS) 56.9 H Sodium Potassium Chloride Carbon Dioxide Anion Gap BUN Creatinine Creat Clearance w eGFR POC Glucometer Random Glucose Calcium Phosphorus Magnesium Total Bilirubin AST ALT Alkaline Phosphatase Total Protein Albumin Stool Occult Blood Positive Blood Type Crossmatch 04/08/18 04/08/18 04/08/18 07:00 07:17 13:55 WBC 10.2 H RBC 2.07 L Hgb 6.7 L* Hct 20.1 L MCV 97.0 H MCH 32.4 MCHC 33.4 RDW 18.1 H Plt Count 202 MPV 8.2 Absolute Neuts (auto) Neutrophils % Lymphocytes % Monocytes % Eosinophils % Basophils % Nucleated RBC % PT with INR INR PTT (Actin FS) Sodium 141 Potassium 4.8 Chloride 100 Carbon Dioxide 26 Anion Gap 16 BUN 98 H Creatinine 8.6 H* Creat Clearance w eGFR 6.26 POC Glucometer 92 Random Glucose 74 Calcium 7.8 L Phosphorus 5.4 H Magnesium 2.2 Total Bilirubin AST ALT Alkaline Phosphatase Total Protein Albumin Stool Occult Blood Blood Type Crossmatch 04/08/18 18:00 WBC 10.2 H RBC 2.70 L Hgb 8.5 L Hct 24.8 L D MCV 92.2 MCH 31.5 MCHC 34.1 RDW 19.3 H Plt Count 225 MPV 8.1 Absolute Neuts (auto) Neutrophils % Lymphocytes % Monocytes % Eosinophils % Basophils % Nucleated RBC % PT with INR INR PTT (Actin FS) Sodium Potassium Chloride Carbon Dioxide Anion Gap BUN Creatinine Creat Clearance w eGFR POC Glucometer Random Glucose Calcium Phosphorus Magnesium Total Bilirubin AST ALT Alkaline Phosphatase Total Protein Albumin Stool Occult Blood Blood Type Crossmatch Active Medications Generic Name Dose Route Start Last Admin Trade Name Freq PRN Reason Stop Dose Admin Clopidogrel Bisulfate 75 mg 04/08/18 10:00 04/08/18 10:27 Plavix - PO Not Given DAILY MIKAYLA Sodium Chloride 250 mls @ 3,000 mls/hr 04/08/18 11:21 Normal Saline - IV 04/09/18 11:21 PRN PRN Hypotension during Dialysis Labetalol HCl 100 mg 04/08/18 18:00 04/08/18 19:00 Normodyne - PO 100 mg BID MIKAYLA Administration Lidocaine 1 patch 04/07/18 21:30 04/08/18 11:26 Lidoderm Patch - TP 1 patch DAILY MIKAYLA Administration Miscellaneous 1 each 04/07/18 22:00 04/08/18 00:16 Lidoderm Patch Removal MC Not Given DAILY@2200 [facility] Pantoprazole Sodium 40 mg 04/08/18 10:45 04/08/18 11:26 Protonix - PO 40 mg BID MIKAYLA Administration ASSESSMENT/PLAN: Patient is a 63 year old male with past medical history of ESRD on HD ([facility]), HTN , DM, PVD, AFib on coumadin, CAD s/p ALEC on Plavix, presented with bleeding at AV fistula site with INR of 11. 35 # Supratherapuetic INR -INR 11.35 on admission, repeat INR 6.5 -Hgb 6.8, repeat Hgb s/p 1 unit pRBC 6.6 -Vit K given at the ED -transfuse 2 more units pRBC, repeat CBC -Patient for HD today. -Will give Vit K 2.5 with INR of >4 -Hold Warfarin for now. #Anemia: likely 2/2 Acute Blood Lossl; r/o GI overt blood loss -FOBT+ -Patient denies gross bleeding per rectum, but reports he has black stools since he started taking iron pills -GI (Dr. Stokes) consulted. Recommendations appreciated. -For EGD/COlonoscopy when INR is stable. -Clear liquids -Correct coagulopathy -Protonix 40mg BID. If development of overt melena, change to PPI drip, keep NPO and transfer to ICU -Plan for EGD/Colonoscopy on Saturday 04/21 -Hemostasis achieved- suture applied in ED -Transfuse Hgb >8. -Repeat CBC in am #ESRD on HD ( [facility]) -Nephrology (Dr. uSng) consulted. Recommendations appreciated. -For HD today. -Will receive 3rd unit pRBC while on dialysis -Repeat CBC and INR post-transfusion and dialysis -Renal diet, 1.2 L fluid restriction -Avoid Nephrotoxic agents #CAD s/p stent -Cardiology (Dr. Queen) consulted. Recommendations appreciated -Resume Lipitor 40, Labetolol 200mg BID, Norvasc 10mg daily as hemodynamics tolerate -Given absence of symptoms of ACS, decompensated CHF, malignant arrhythmia, and recent coronary revascularization 12/16/2017, may proceed with EGD/colonoscopy without further cardiovascular testing. -given recent ALEC implantation, resume ASA 81mg daily tanner-procedure once INR < 2.0, otherwise resume Plavix 75 mg daily once INR <2.0 if procedures are not planned, agree with maintenance on Plavix alone without ASA while on concomitant anticoagulation. -Consideration for switch from coumadin to Eliquis 5 mg BID given difficulty with INR control. #Atrial fibrillation: rate controlled -Hold warfarin for now -will monitor INR #DM -Pt off previous DM meds. -A1c pending. -Will continue to monitor. #Hypertension -Resume of home meds if BP is elevated -Monitor #FEN -Not on any standing fluids -Limit to 1.2L of fluid -electrolytes wnl, routine bmp monitoring -Renal/Diabetic diet #DVT ppx -SCD's #Disposition -admit to med-surg Visit type - Emergency Visit Emergency Visit: Yes ED Registration Date: 04/08/18 Care time: The patient presented to the Emergency Department on the above date and was hospitalized for further evaluation of their emergent condition. - New Patient This patient is new to me today: Yes Date on this admission: 04/08/18 - Critical Care Critical Care patient: No
[2018-04-09 08:19] LABS: BASO % 0.4 % (0-2.0); EOS % 2.5 % (0-4.5); HEMATOCRIT 24.2 % (35.4-49); HEMOGLOBIN 8.3 GM/dL (11.7-16.9); MCH 31.7 pg (25.7-33.7); MCHC 34.3 g/dl (32.0-35.9); MEAN CELL VOLUME 92.4 fl (80-96); MEAN PLT VOLUME 8.1 fl (7.5-11.1); MONO % 10.5 % (3.8-10.2); NEUT % 74.6 % (42.8-82.8); PLATELET COUNT 186 K/MM3 (134-434); RBC 2.62 M/mm3 (4.00-5.60); RDW 19.9 % (11.9-15.9); WHITE BLOOD COUNT 9.7 K/mm3 (4.0-10.0)
[2018-04-09 08:47] LABS: ALBUMIN 2.8 g/dl (3.4-5.0); ALK PHOS 48 U/L (45-117); ANION GAP 12 MMOL/L (8-16); BILIRUBIN,TOTAL 0.9 mg/dL (0.2-1); BLOOD UREA NITROGEN 46 mg/dL (7-18); CHLORIDE 102 mmol/L (98-107); CO2 29 mmol/L (21-32); CREATININE 5.6 mg/dL (0.55-1.3); GLUCOSE,RANDOM 76 mg/dL (74-106); MAGNESIUM 1.9 mg/dL (1.8-2.4); PHOSPHOROUS 4.4 mg/dL (2.5-4.9); SGOT/AST 24 U/L (15-37); SGPT/ALT 29 U/L (13-61); SODIUM 142 mmol/L (136-145); TOT PROT 5.5 g/dl (6.4-8.2)
--- NOTE | 2018-04-09 09:03 | PN ---
<Israel Mccormick - Last Filed: 04/09/18 14:22> Physical Exam: SUBJECTIVE: Patient seen and examined at bedside, no current complaints. Denies any bleeding, melena, hematochezia. Denies chest pain, SOB, nausea, vomiting, diarrhea, fevers, chills. OBJECTIVE: Vital Signs Period Temp Pulse Resp BP Sys/Gonzáles Pulse Ox Last 24 Hr 97.6 F-98.7 F 68-88 16-20 114-179/51-100 100 GENERAL: A&Ox3, no acute distress EYES: PERRLA, EOMI ENT: Moist mucus membranes NECK: No JVD LUNGS: CTA, no wheezes HEART: RRR, no murmurs ABDOMEN: Soft, nontender, BS present MUSCULOSKELETAL: No CVA Tenderness EXTREMITIES: 2+ pulses, no edema. NEUROLOGICAL: Cranial nerves II-XII intact. Laboratory Results - last 24 hr 04/07/18 04/08/18 04/08/18 20:45 07:00 13:55 WBC 10.2 H RBC 2.07 L Hgb 6.7 L* Hct 20.1 L MCV 97.0 H MCH 32.4 MCHC 33.4 RDW 18.1 H Plt Count 202 MPV 8.2 Absolute Neuts (auto) Neutrophils % Lymphocytes % Monocytes % Eosinophils % Basophils % Nucleated RBC % PT with INR INR Sodium 141 Potassium 4.8 Chloride 100 Carbon Dioxide 26 Anion Gap 16 BUN 98 H Creatinine 8.6 H* Creat Clearance w eGFR 6.26 Random Glucose 74 Calcium 7.8 L Phosphorus 5.4 H Magnesium 2.2 Total Bilirubin AST ALT Alkaline Phosphatase Total Protein Albumin Blood Type A POSITIVE Crossmatch See Detail 04/08/18 04/08/18 04/09/18 18:00 18:00 06:00 WBC 10.2 H RBC 2.70 L Hgb 8.5 L Hct 24.8 L D MCV 92.2 MCH 31.5 MCHC 34.1 RDW 19.3 H Plt Count 225 MPV 8.1 Absolute Neuts (auto) Neutrophils % Lymphocytes % Monocytes % Eosinophils % Basophils % Nucleated RBC % PT with INR 45.80 H INR 3.83 H Sodium 142 Potassium 4.0 Chloride 102 Carbon Dioxide 29 Anion Gap 12 BUN 46 H Creatinine 5.6 H Creat Clearance w eGFR 10.27 Random Glucose 76 Calcium 8.0 L Phosphorus 4.4 Magnesium 1.9 Total Bilirubin 0.9 AST 24 ALT 29 Alkaline Phosphatase 48 Total Protein 5.5 L Albumin 2.8 L Blood Type Crossmatch 04/09/18 07:00 WBC 9.7 RBC 2.62 L Hgb 8.3 L Hct 24.2 L MCV 92.4 MCH 31.7 MCHC 34.3 RDW 19.9 H Plt Count 186 MPV 8.1 Absolute Neuts (auto) 7.2 Neutrophils % 74.6 Lymphocytes % 12.0 D Monocytes % 10.5 H Eosinophils % 2.5 Basophils % 0.4 Nucleated RBC % 0 PT with INR INR Sodium Potassium Chloride Carbon Dioxide Anion Gap BUN Creatinine Creat Clearance w eGFR Random Glucose Calcium Phosphorus Magnesium Total Bilirubin AST ALT Alkaline Phosphatase Total Protein Albumin Blood Type Crossmatch Active Medications Generic Name Dose Route Start Last Admin Trade Name Freq PRN Reason Stop Dose Admin Sodium Chloride 250 mls @ 3,000 mls/hr 04/08/18 11:21 Normal Saline - IV 04/09/18 11:21 PRN PRN Hypotension during Dialysis Labetalol HCl 100 mg 04/08/18 18:00 04/08/18 19:00 Normodyne - PO 100 mg BID MIKAYLA Administration Lidocaine 1 patch 04/07/18 21:30 04/08/18 11:26 Lidoderm Patch - TP 1 patch DAILY MIKAYLA Administration Miscellaneous 1 each 04/07/18 22:00 04/08/18 21:20 Lidoderm Patch Removal MC 1 each DAILY@2200 MIKAYLA Administration Pantoprazole Sodium 40 mg 04/08/18 10:45 04/08/18 21:17 Protonix - PO 40 mg BID MIKAYLA Administration ASSESSMENT/PLAN: Patient is a 63 year old male with past medical history of ESRD on HD (MWF), HTN , DM, PVD, AFib on coumadin, CAD s/p ALEC on Plavix, presented with bleeding at AV fistula site with INR of 11. 35 #Supratherapuetic INR: INR improving, 2.47 today - 11.35 on admission -Will give Vit K 2.5 with INR of > 4 -Hold Warfarin. #Anemia: likely 2/2 Acute Blood Loss from GI, FOBT + -Hgb stable after 3 transfusions, repeat hgb 8.3 (8.5 yesterday) -continue to monitor CBC -GI (Dr. Stokes) consulted. Recommendations appreciated. -cardiology cleared for EGD/Colonoscopy, likely Wednesday pending INR stability -Clear liquid diet -Protonix 40mg BID -Plan for EGD/Colonoscopy on Saturday 04/21 -Transfuse Hgb > 8. #ESRD on HD (MWF): -Nephrology (Dr. Sung) following -s/p HD yesterday and 2 units prbc during dialysis and one prior -Repeat CBC and INR post-transfusion and dialysis -Renal diet, 1.2 L fluid restriction -Avoid Nephrotoxic agents #CAD s/p stent -Cardiology (Dr. Queen) following -continue Lipitor 40 -continue Labetolol 200mg BID -continue Norvasc 10mg QD -cardiac cleared for EGD/[place] -plavix alone without ASA while on anticoagulation -cardiology suggested transitioning to eliquis 5 BID due to INR control instability #Atrial fibrillation: rate controlled -Hold warfarin for now -will monitor INR #DM -not currently on standing meds -A1c pending. -Will continue to monitor. #Hypertension -resume labetalol and norvasc -Monitor #FEN -Not on any standing fluids -Limit to 1.2L of fluid -electrolytes wnl, routine bmp monitoring -Renal/Diabetic diet #DVT ppx -SCD's #Disposition -continue to monitor on med-surg Visit type - Emergency Visit Emergency Visit: No - New Patient This patient is new to me today: No - Critical Care Critical Care patient: No <Aditya Fleming - Last Filed: 04/09/18 14:55> Physical Exam: correction: possible EGD/colonoscopy 04/11.
[2018-04-09 09:20] LABS: INR 2.47 (0.83-1.09); PROTHROMBIN TIME (PATIENT) 29.4 SEC (9.7-13.0)
--- NOTE | 2018-04-09 09:51 | PN ---
Teaching Attending Note Name of Resident: Israel Mccormick ATTENDING PHYSICIAN STATEMENT I saw and evaluated the patient. I reviewed the resident's note and discussed the case with the resident. I agree with the resident's findings and plan as documented with exceptions below. SUBJECTIVE: Patient seen and examined. ongoing dark stools unchanged. No further bleeding from fistula site, no abdominal pain, chest pain, dyspnea, dizziness or new concerns. OBJECTIVE: Vital Signs Period Temp Pulse Resp BP Sys/Gonzáles Pulse Ox Last 24 Hr 97.6 F-98.7 F 68-88 16-20 114-179/51-100 100 Intake & Output 04/06/18 04/07/18 04/08/18 04/09/18 23:59 23:59 23:59 23:59 Intake Total 1300 450 Balance 1300 450 Weight 180 lb 180 lb 180 lb General: sitting in bed in no acute distress Chest: CTAB, no rales or wheezing Abdomen:soft, obese, NT throughout, positive bowel sounds Extermities: left AV fistula site clean dressing with no active bleed, no pedal edema noted Active Medications Sodium Chloride (Normal Saline -) 250 mls @ 3,000 mls/hr IV PRN PRN PRN Reason: Hypotension during Dialysis Stop: 04/09/18 11:21 Labetalol HCl (Normodyne -) 100 mg PO BID [facility] Last Admin: 04/08/18 19:00 Dose: 100 mg Lidocaine (Lidoderm Patch -) 1 patch TP DAILY [facility] Last Admin: 04/08/18 11:26 Dose: 1 patch Miscellaneous (Lidoderm Patch Removal) 1 each MC DAILY@2200 [facility] Last Admin: 04/08/18 21:20 Dose: 1 each Pantoprazole Sodium (Protonix -) 40 mg PO BID [facility] Last Admin: 04/08/18 21:17 Dose: 40 mg Laboratory Results - last 24 hr 04/07/18 04/08/18 04/08/18 20:45 13:55 18:00 WBC 10.2 H RBC 2.07 L Hgb 6.7 L* Hct 20.1 L MCV 97.0 H MCH 32.4 MCHC 33.4 RDW 18.1 H Plt Count 202 MPV 8.2 Absolute Neuts (auto) Neutrophils % Lymphocytes % Monocytes % Eosinophils % Basophils % Nucleated RBC % PT with INR 45.80 H INR 3.83 H Sodium Potassium Chloride Carbon Dioxide Anion Gap BUN Creatinine Creat Clearance w eGFR Random Glucose Calcium Phosphorus Magnesium Total Bilirubin AST ALT Alkaline Phosphatase Total Protein Albumin Blood Type A POSITIVE Crossmatch See Detail 04/08/18 04/09/18 04/09/18 18:00 06:00 07:00 WBC 10.2 H RBC 2.70 L Hgb 8.5 L Hct 24.8 L D MCV 92.2 MCH 31.5 MCHC 34.1 RDW 19.3 H Plt Count 225 MPV 8.1 Absolute Neuts (auto) Neutrophils % Lymphocytes % Monocytes % Eosinophils % Basophils % Nucleated RBC % PT with INR 29.40 H INR 2.47 H Sodium 142 Potassium 4.0 Chloride 102 Carbon Dioxide 29 Anion Gap 12 BUN 46 H Creatinine 5.6 H Creat Clearance w eGFR 10.27 Random Glucose 76 Calcium 8.0 L Phosphorus 4.4 Magnesium 1.9 Total Bilirubin 0.9 AST 24 ALT 29 Alkaline Phosphatase 48 Total Protein 5.5 L Albumin 2.8 L Blood Type Crossmatch 04/09/18 07:00 WBC 9.7 RBC 2.62 L Hgb 8.3 L Hct 24.2 L MCV 92.4 MCH 31.7 MCHC 34.3 RDW 19.9 H Plt Count 186 MPV 8.1 Absolute Neuts (auto) 7.2 Neutrophils % 74.6 Lymphocytes % 12.0 D Monocytes % 10.5 H Eosinophils % 2.5 Basophils % 0.4 Nucleated RBC % 0 PT with INR INR Sodium Potassium Chloride Carbon Dioxide Anion Gap BUN Creatinine Creat Clearance w eGFR Random Glucose Calcium Phosphorus Magnesium Total Bilirubin AST ALT Alkaline Phosphatase Total Protein Albumin Blood Type Crossmatch CT A/p results noted. ASSESSMENT AND PLAN: 63 yom with PMHx of ESRD on HD (x 3 years secondary to diabetic nephropathy @ [facility] dialysis in [facility]), Hypertension, DM, PVD s/p right BKA, Afib on A/C with coumadin per INR, CAD s/p ALEC to prox RCA December 16, 2017 at [facility] on Plavix, admitted with bleeding from Av fistula site, coumadin coagulopathy (INR 11), and dark stools for months -Bleeding from AV fistula site s/p suture, hemostasis achieved -Coumadin coagulopathy, ?etiology, incorrect dosing -Acute on chronic anemia, from AV fistula bleed, r/o GI bleed/hematoma -Chronic dark stools, ?melena, reports since iron supplementation -ESRD on HD (being worked up for transplant) -HTN -NIDDM -PVD s/p Right BKA -CAD s/p ALEC to Prox RCA 12/16/2017 Plan: No further fistula site bleed. s/p4 units pRBC. Hb stable this AM. Monitor h/h q12h and hemodynamics closely. INR drifting donw, monitor. Daily coags CT a/P neg for collection/hematoma. GI input appreciated. Clears, protonix BID. EGD/colonoscopy likely on Wednesday 04/11 based on clinical course. Labetalol at lower dose. Titrate up and resume amlodipine based on BP readings. ISS, diabetic diet. Cardiology input appreciated, ASA/plavix per Cardiology/GI and clinical course. Retrieve further info about recent coumadin dosing, INR check. ?incorrect administration. patient feels might have double dosed himself prior to admission. Does not take it on specific time. Counseled in detail about scheduling coumadin at fixed time of the day and additional reminder/alarm to ensure the same. DVTPPX not currently indicated. Dispo patient requested transfer to [facility]. Called [facility] Transfer center, case discussed with Dr. Mejia. Called back, declined for transfer. Will monitor closely. Plan discussed with patient in detail, all questions answered.
[2018-04-09] MEDS: LABETALOL HCL 100 MG TABLET (FP) PO SCH ×2 (10:02→21:14)
[2018-04-09] MEDS: PANTOPRAZOLE 40 MG TABLET (FP) PO SCH ×2 (10:02→21:15)
[2018-04-09] MEDS: LIDOCAINE 5% TOPICAL PATCH TP SCH (10:02)
--- NOTE | 2018-04-09 10:44 | PN ---
Progress Note (short form) - Note Progress Note: Renal follow up for ESRD on Hd Pt seen and examined at the bedside no acute complaints s/p Hd yesterday Vital Signs Temperature 98.5 F 04/09/18 08:00 Pulse Rate 76 04/09/18 08:00 Respiratory Rate 16 04/09/18 08:00 Blood Pressure 153/83 04/09/18 08:00 O2 Sat by Pulse Oximetry (%) 100 04/08/18 21:00 Intake & Output 04/06/18 04/07/18 04/08/18 04/09/18 23:59 23:59 23:59 23:59 Intake Total 1300 700 Balance 1300 700 Weight 81.647 kg 81.647 kg 81.647 kg NAD Awake and alert Neck supple, no JVD RRR, no M/R CTA, no rales soft NT/ND Right BKA No LE edema left arm AVF CBC, BMP 04/08/18 07:00 04/08/18 07:00 Current Medications Clopidogrel Bisulfate (Plavix -) 75 mg PO DAILY [facility] Last Admin: 04/08/18 10:27 Dose: Not Given Sodium Chloride (Normal Saline -) 250 mls @ 3,000 mls/hr IV PRN PRN PRN Reason: Hypotension during Dialysis Stop: 04/09/18 11:21 Lidocaine (Lidoderm Patch -) 1 patch TP DAILY [facility] Last Admin: 04/08/18 11:26 Dose: 1 patch Miscellaneous (Lidoderm Patch Removal) 1 each MC DAILY@2200 [facility] Last Admin: 04/08/18 00:16 Dose: Not Given Pantoprazole Sodium (Protonix -) 40 mg PO BID [facility] Last Admin: 04/08/18 11:26 Dose: 40 mg 63 year old gentleman with Hx of ESRD on HD (x 3 years secondary to diabetic nephropathy @ [facility] dialysis in [facility]), Hypertension, DM, PVD s/p right leg amputation, Afib on A/C who presented from home with bleeding from his AVF site and found to have INR of 11 and Hgb of 6. #Acute anemia from blood loss #Supratheraputic INR #ESRD on HD #Suspected GI bleed #Hypetension #DM no acute indication for CAT DOG OR OTHER PET GROOMER today next Hd is planned for Wednesday trend CBC GI Follow up Kenji Sung DO
--- NOTE | 2018-04-09 11:44 | PN ---
Progress Note, Physician Chief Complaint: Events noted Not in distress History of Present Illness: Patient was seen and examined. Awake and alert. Chart was reviewed No bleeding Denies chest pain, SOB or palpitations - Current Medication List Current Medications: Active Medications Labetalol HCl (Normodyne -) 100 mg PO BID [facility] Last Admin: 04/09/18 10:02 Dose: 100 mg Lidocaine (Lidoderm Patch -) 1 patch TP DAILY [facility] Last Admin: 04/09/18 10:02 Dose: 1 patch Miscellaneous (Lidoderm Patch Removal) 1 each MC DAILY@2200 [facility] Last Admin: 04/08/18 21:20 Dose: 1 each Pantoprazole Sodium (Protonix -) 40 mg PO BID [facility] Last Admin: 04/09/18 10:02 Dose: 40 mg - Objective Vital Signs: Vital Signs Temperature 98.5 F 04/09/18 08:00 Pulse Rate 76 04/09/18 08:00 Respiratory Rate 16 04/09/18 08:00 Blood Pressure 153/83 04/09/18 08:00 O2 Sat by Pulse Oximetry (%) 100 04/08/18 21:00 HENT: Yes: Atraumatic Neck: Yes: Supple Cardiovascular: Yes: Regular Rate and Rhythm, S1, S2 Respiratory: Yes: CTA Bilaterally Gastrointestinal: Yes: Normal Bowel Sounds, Soft Extremities: Yes: Amputation Edema: No Labs: CBC, BMP 04/09/18 07:00 04/09/18 06:00 INR, PTT INR 2.47 (0.83-1.09) H 04/09/18 07:00 Problem List - Problems (1) Coronary artery disease Code(s): I25.10 - ATHSCL HEART DISEASE OF [place] CORONARY ARTERY W/O ANG PCTRS Qualifiers: Coronary Disease-Associated Artery/Lesion type: [place] artery [place] vs. transplanted heart: [place] heart Associated angina: without angina Qualified Code(s): I25.10 - Atherosclerotic heart disease of [place] coronary artery without angina pectoris (2) End-stage renal disease Code(s): N18.6 - END STAGE RENAL DISEASE (3) Hyperlipidemia Code(s): E78.5 - HYPERLIPIDEMIA, UNSPECIFIED Qualifiers: Hyperlipidemia type: pure hypercholesterolemia Qualified Code(s): E78.00 - Pure hypercholesterolemia, unspecified; E78.0 - Pure hypercholesterolemia (4) Hypertensive cardiomyopathy Code(s): I11.9 - HYPERTENSIVE HEART DISEASE WITHOUT HEART FAILURE; I43 - CARDIOMYOPATHY IN DISEASES CLASSIFIED ELSEWHERE Qualifiers: Heart failure presence: without heart failure Qualified Code(s): I11.9 - Hypertensive heart disease without heart failure; I43 - Cardiomyopathy in diseases classified elsewhere (5) Paroxysmal atrial fibrillation Code(s): I48.0 - PAROXYSMAL ATRIAL FIBRILLATION (6) Presence of drug-eluting stent in right coronary artery Code(s): Z95.5 - PRESENCE OF CORONARY ANGIOPLASTY IMPLANT AND GRAFT Assessment/Plan 1. Acute anemia from blood loss, bleeding from AV fistula and GI blood losses in setting of supratherapeutic INR 2. ESRD on HD 3. CAD s/p ALEC pRCA 12/16/2017 4. Hypertension 5. Type 2 DM 6. Paroxysmal AF 7. PAD s/p right BKA 8. Hyperlipidemia PLAN: 1. Correcting coagulopathy, hold Plavix 2. Transfuse PRBC to maintain Hgb>8.0 3. HD per renal 4. Continue Lipitor 10 QHS, Labetolol 200 bid, Norvasc 10 qd and Lisinopril 40 qd as tolerated 5. Given absence of symptoms of acute coronary syndrome, decompensated CHF and malignant arrhythmia, and recent coronary revascularization 12/16/2017, may proceed with EGD/colonoscopy. Given recent ALEC implantation, resume ASA 81 qd tanner-procedure once INR<2.0, otherwise resume Plavix 75 qd once INR<2.0 if procedures are not planned, Consider switching to Eliquis 5 BID instead of Coumadin in view of difficult maintaining INR and resume Plavix alone 6. Protonix Sergey Vale MD
[2018-04-09] MEDS: LIDOCAINE PATCH REMOVAL MC SCH (21:14)
[2018-04-09] MEDS: ZOLPIDEM TARTRATE 5 MG TABLET PO PRN (21:14)
[2018-04-09 21:45] LABS: HEMATOCRIT 24.7 % (35.4-49); HEMOGLOBIN 8.3 GM/dL (11.7-16.9); MCH 31.6 pg (25.7-33.7); MCHC 33.6 g/dl (32.0-35.9); MEAN PLT VOLUME 8.4 fl (7.5-11.1); PLATELET COUNT 214 K/MM3 (134-434); RBC 2.62 M/mm3 (4.00-5.60); RDW 19.6 % (11.9-15.9); WHITE BLOOD COUNT 10.1 K/mm3 (4.0-10.0)
[2018-04-10] MEDS ORDERED: MAG HYDROX/AL HYDROX/SIMETH 30 ML UNIT-DOSE CUP PO ONE (03:35)
[2018-04-10] MEDS ORDERED: SIMETHICONE 40 MG/0.6 ML BOTTLE PO ONE (03:43)
[2018-04-10] MEDS ORDERED: SIMETHICONE 80 MG TAB.CHEW (FP) PO ONE (03:43)
[2018-04-10 08:06] LABS: HBSAG SCREEN Negative (Negative); HEP B CORE AB, TOT Negative (Negative)
[2018-04-10 08:32] LABS: INR 1.72 (0.83-1.09); PROTHROMBIN TIME (PATIENT) 20.4 SEC (9.7-13.0)
[2018-04-10 08:39] LABS: HEMOGLOBIN 7.7 GM/dL (11.7-16.9); MCH 31.4 pg (25.7-33.7); MCHC 33.4 g/dl (32.0-35.9); MEAN CELL VOLUME 94.1 fl (80-96); MEAN PLT VOLUME 8.3 fl (7.5-11.1); PLATELET COUNT 198 K/MM3 (134-434); RBC 2.44 M/mm3 (4.00-5.60); RDW 19.2 % (11.9-15.9); WHITE BLOOD COUNT 10.1 K/mm3 (4.0-10.0)
[2018-04-10] MEDS: PANTOPRAZOLE 40 MG TABLET (FP) PO SCH ×2 (09:03→22:56)
[2018-04-10] MEDS: LABETALOL HCL 200 MG TABLET (FP) PO SCH ×2 (09:04→22:56)
[2018-04-10] MEDS: amLODIPine BESYLATE 10 MG TABLET (FP) PO SCH (09:04)
[2018-04-10] MEDS: LIDOCAINE 5% TOPICAL PATCH TP SCH (09:04)
[2018-04-10] MEDS: LISINOPRIL 20 MG TABLET (FP) PO SCH (11:32)
[2018-04-10] MEDS ORDERED: PEG3350/SOD SULF,BICARB,CL/KCL 4,000 ML SOLN.RECON PO ONE (15:00)
[2018-04-10] MEDS ORDERED: BISACODYL 10 MG SUPP.RECT RC ONE (17:00)
--- NOTE | 2018-04-10 17:23 | PN ---
Physical Exam: SUBJECTIVE: Patient seen and examined, ongoing dark stools but no new chest pain , dyspnea, dizziness, palpitations, leg swelling or new concerns. OBJECTIVE: Vital Signs Period Temp Pulse Resp BP Sys/Gonzáles Pulse Ox Last 24 Hr 97.6 F-99.0 F 89-95 16-20 161-170/74-90 100-100 GENERAL: The patient is awake, alert, and fully oriented, in no acute distress. HEAD: Normal with no signs of trauma. EYES: PERRL, extraocular movements intact, sclera anicteric, conjunctiva clear. No ptosis. ENT: Ears normal, nares patent, oropharynx clear without exudates, moist mucous membranes. NECK: Trachea midline, full range of motion, supple. LUNGS: Breath sounds equal, clear to auscultation bilaterally, no wheezes, no crackles, no accessory muscle use. HEART: Regular rate and rhythm, S1, S2 without murmur, rub or gallop. ABDOMEN: Soft, nontender, nondistended, normoactive bowel sounds, no guarding, no rebound, no hepatosplenomegaly, no masses. EXTREMITIES: 2+ pulses, warm, well-perfused, no edema. NEUROLOGICAL: Cranial nerves II through XII grossly intact. Normal speech, gait not observed. PSYCH: Normal mood, normal affect. SKIN: Warm, dry, normal turgor, no rashes or lesions noted Laboratory Results - last 24 hr 04/08/18 04/08/18 04/09/18 13:55 13:55 20:55 WBC 10.1 H RBC 2.62 L Hgb 8.3 L Hct 24.7 L MCV 94.0 MCH 31.6 MCHC 33.6 RDW 19.6 H Plt Count 214 MPV 8.4 PT with INR INR Hepatitis A Ab Total Negative Hep Bs Antigen Negative Hep Bs Antibody Reactive Hep B Core Total Ab Negative Hep C Ab Diagnostic <0.1 Liver Fibrosis Interp 04/10/18 04/10/18 07:13 07:13 WBC 10.1 H RBC 2.44 L Hgb 7.7 L Hct 23.0 L MCV 94.1 MCH 31.4 MCHC 33.4 RDW 19.2 H Plt Count 198 MPV 8.3 PT with INR 20.40 H INR 1.72 H Hepatitis A Ab Total Hep Bs Antigen Hep Bs Antibody Hep B Core Total Ab Hep C Ab Diagnostic Liver Fibrosis Interp Active Medications Generic Name Dose Route Start Last Admin Trade Name Freq PRN Reason Stop Dose Admin Amlodipine Besylate 10 mg 04/10/18 10:00 04/10/18 09:04 Norvasc - PO 10 mg DAILY MIKAYLA Administration Labetalol HCl 200 mg 04/10/18 10:00 04/10/18 09:04 Normodyne - PO 200 mg BID MIKAYLA Administration Lidocaine 1 patch 04/07/18 21:30 04/10/18 09:04 Lidoderm Patch - TP 1 patch DAILY MIKAYLA Administration Lisinopril 40 mg 04/10/18 10:45 04/10/18 11:32 Prinivil PO 40 mg DAILY MIKAYLA Administration Miscellaneous 1 each 04/07/18 22:00 04/09/18 21:14 Lidoderm Patch Removal MC 1 each DAILY@2200 MIKAYLA Administration Pantoprazole Sodium 40 mg 04/08/18 10:45 04/10/18 09:03 Protonix - PO 40 mg BID MIKAYLA Administration Zolpidem Tartrate 10 mg 04/09/18 21:00 04/09/18 21:14 Ambien - PO 10 mg HS PRN Administration INSOMNIA ASSESSMENT/PLAN: 63 yom with PMHx of ESRD on HD (x 3 years secondary to diabetic nephropathy @ [facility] dialysis in [facility]), Hypertension, DM, PVD s/p right BKA, Afib on A/C with coumadin per INR, CAD s/p ALEC to prox RCA December 16, 2017 at [facility] on Plavix, admitted with bleeding from Av fistula site, coumadin coagulopathy (INR 11), and dark stools for months -Bleeding from AV fistula site s/p suture, hemostasis achieved -Coumadin coagulopathy, ?etiology, incorrect dosing -Acute on chronic anemia, from AV fistula bleed, r/o GI bleed -Chronic dark stools, ?melena, reports since iron supplementation -ESRD on HD (being worked up for transplant) -HTN -NIDDM -PVD s/p Right BKA -CAD s/p ALEC to Prox RCA 12/16/2017 Plan: No further fistula site bleed. s/p4 units pRBC Hb slowly trending down. Discussed with Dr. Au, EGD/colonoscopy in AM Dulcolax/joana bowel prep tonight. Monitor h/h q12h and hemodynamics closely. Transfusion prn. INR noted. Risk of AC higher currently given ongoing concerns for bleed and trending down CBC. CT a/P neg for collection/hematoma. Resume home BP meds. ISS, diabetic diet. Cardiology input appreciated, ASA/plavix per Cardiology/GI and clinical course. Possible transition to Eliquis once bleed concerns ruled out and h/h stable. Retrieve further info about recent coumadin dosing, INR check. ?incorrect administration. patient feels might have double dosed himself prior to admission. Does not take it on specific time. Counseled in detail about scheduling coumadin at fixed time of the day and additional reminder/alarm to ensure the same. DVTPPX place on SCDs Dispo patient requested transfer to [facility]. Called [facility] Transfer center, case discussed with Dr. Mejia. Called back, declined for transfer. Will monitor closely. Plan discussed with patient and nursing in detail, all questions answered. Visit type - Emergency Visit Emergency Visit: Yes ED Registration Date: 04/08/18 Care time: The patient presented to the Emergency Department on the above date and was hospitalized for further evaluation of their emergent condition. - New Patient This patient is new to me today: No - Critical Care Critical Care patient: No - Discharge Referral Referred to [facility] Med P.C.: No
[2018-04-10 21:25] LABS: HEMATOCRIT 22.4 % (35.4-49); HEMOGLOBIN 7.4 GM/dL (11.7-16.9); MCH 31.4 pg (25.7-33.7); MCHC 33.2 g/dl (32.0-35.9); MEAN CELL VOLUME 94.5 fl (80-96); MEAN PLT VOLUME 8.4 fl (7.5-11.1); PLATELET COUNT 240 K/MM3 (134-434); RBC 2.37 M/mm3 (4.00-5.60); RDW 18.8 % (11.9-15.9); WHITE BLOOD COUNT 11.1 K/mm3 (4.0-10.0)
[2018-04-10] MEDS: LIDOCAINE PATCH REMOVAL MC SCH (22:56)
[2018-04-10] MEDS: ZOLPIDEM TARTRATE 5 MG TABLET PO PRN (22:57)
[2018-04-11 07:19] LABS: HEMATOCRIT 20.7 % (35.4-49); MCH 31.7 pg (25.7-33.7); MCHC 33.1 g/dl (32.0-35.9); MEAN CELL VOLUME 95.8 fl (80-96); MEAN PLT VOLUME 8.1 fl (7.5-11.1); PLATELET COUNT 213 K/MM3 (134-434); RBC 2.16 M/mm3 (4.00-5.60); RDW 18.7 % (11.9-15.9); WHITE BLOOD COUNT 10.7 K/mm3 (4.0-10.0)
[2018-04-11 07:31] LABS: INR 1.5 (0.83-1.09); PROTHROMBIN TIME (PATIENT) 17.8 SEC (9.7-13.0)
[2018-04-11 07:40] LABS: HEMOGLOBIN 6.9 GM/dL (11.7-16.9)
[2018-04-11 07:55] LABS: ANION GAP 16 MMOL/L (8-16); BLOOD UREA NITROGEN 84 mg/dL (7-18); CALCIUM 8.4 mg/dL (8.5-10.1); CHLORIDE 100 mmol/L (98-107); CO2 26 mmol/L (21-32); GLUCOSE,RANDOM 76 mg/dL (74-106); PHOSPHOROUS 5.8 mg/dL (2.5-4.9); POTASSIUM 4.7 mmol/L (3.5-5.1); SODIUM 141 mmol/L (136-145)
[2018-04-11 08:00] LABS: CREATININE 10.4 mg/dL (0.55-1.3)
--- NOTE | 2018-04-11 08:46 | PN ---
Teaching Attending Note Name of Resident: Jessica Hodge ATTENDING PHYSICIAN STATEMENT I saw and evaluated the patient. I reviewed the resident's note and discussed the case with the resident. I agree with the resident's findings and plan as documented with exceptions below. SUBJECTIVE: Patient seen and examined. dark watery stools, no dizziness, chest pain, palpitations or dyspnea. OBJECTIVE: Vital Signs Period Temp Pulse Resp BP Sys/Gonzáles Pulse Ox Last 24 Hr 97.8 F-98.5 F 75-115 17-18 145-163/72-82 96-100 Intake & Output 04/08/18 04/09/18 04/10/18 04/11/18 23:59 23:59 23:59 23:59 Intake Total 1300 1100 775 Balance 1300 1100 775 Weight 180 lb 180 lb 180 lb 2 oz 180 lb 8 oz General: lying in bed getting HD Chest: CTAB, no rales or wheezing Abdomen: soft, obese, NT throughout, positive bowel sounds Extremities: no edema, Right BKA Active Medications Amlodipine Besylate (Norvasc -) 10 mg PO DAILY [facility] Last Admin: 04/10/18 09:04 Dose: 10 mg Epoetin Franklyn (Epogen -) 20,000 unit IVPUSH ONCE ONE Stop: 04/11/18 06:01 Sodium Chloride (Normal Saline -) 250 mls @ 3,000 mls/hr IV PRN PRN PRN Reason: Hypotension during Dialysis Stop: 04/11/18 22:10 Labetalol HCl (Normodyne -) 200 mg PO BID [facility] Last Admin: 04/10/18 22:56 Dose: 200 mg Lidocaine (Lidoderm Patch -) 1 patch TP DAILY [facility] Last Admin: 04/10/18 09:04 Dose: 1 patch Lisinopril (Prinivil) 40 mg PO DAILY [facility] Last Admin: 04/10/18 11:32 Dose: 40 mg Miscellaneous (Lidoderm Patch Removal) 1 each MC DAILY@2200 [facility] Last Admin: 04/10/18 22:56 Dose: 1 each Pantoprazole Sodium (Protonix -) 40 mg PO BID [facility] Last Admin: 04/10/18 22:56 Dose: 40 mg Zolpidem Tartrate (Ambien -) 10 mg PO HS PRN PRN Reason: INSOMNIA Last Admin: 04/10/18 22:57 Dose: 10 mg Laboratory Results - last 24 hr 04/07/18 04/10/18 04/10/18 20:45 07:13 20:30 WBC 10.1 H 11.1 H RBC 2.44 L 2.37 L Hgb 7.7 L 7.4 L Hct 23.0 L 22.4 L MCV 94.1 94.5 MCH 31.4 31.4 MCHC 33.4 33.2 RDW 19.2 H 18.8 H Plt Count 198 240 D MPV 8.3 8.4 PT with INR INR Sodium Potassium Chloride Carbon Dioxide Anion Gap BUN Creatinine Creat Clearance w eGFR POC Glucometer Random Glucose Calcium Phosphorus Magnesium Blood Type A POSITIVE Antibody Screen Crossmatch See Detail 04/10/18 04/11/18 04/11/18 22:55 00:40 06:10 WBC RBC Hgb Hct MCV MCH MCHC RDW Plt Count MPV PT with INR 17.80 H INR 1.50 H Sodium Potassium Chloride Carbon Dioxide Anion Gap BUN Creatinine Creat Clearance w eGFR POC Glucometer 79 Random Glucose Calcium Phosphorus Magnesium Blood Type A POSITIVE Antibody Screen Negative Crossmatch See Detail 04/11/18 04/11/18 04/11/18 06:10 06:10 06:21 WBC 10.7 H RBC 2.16 L Hgb 6.9 L* Hct 20.7 L MCV 95.8 MCH 31.7 MCHC 33.1 RDW 18.7 H Plt Count 213 MPV 8.1 PT with INR INR Sodium 141 Potassium 4.7 Chloride 100 Carbon Dioxide 26 Anion Gap 16 BUN 84 H Creatinine 10.4 H* Creat Clearance w eGFR 5.03 POC Glucometer 92 Random Glucose 76 Calcium 8.4 L Phosphorus 5.8 H Magnesium 2.0 Blood Type Antibody Screen Crossmatch ASSESSMENT AND PLAN: 63 yom with PMHx of ESRD on HD (x 3 years secondary to diabetic nephropathy @ [facility] dialysis in [facility]), Hypertension, DM, PVD s/p right BKA, Afib on A/C with coumadin per INR, CAD s/p ALEC to prox RCA December 16, 2017 at [facility] on Plavix, admitted with bleeding from Av fistula site, coumadin coagulopathy (INR 11), and dark stools for months -Bleeding from AV fistula site s/p suture, hemostasis achieved -Coumadin coagulopathy, ?etiology, incorrect dosing -Acute on chronic anemia, from AV fistula bleed, r/o GI bleed -Chronic dark stools, ?melena, reports since iron supplementation -ESRD on HD (being worked up for transplant) -HTN -NIDDM -PVD s/p Right BKA -CAD s/p ALEC to Prox RCA 12/16/2017 Plan: No further fistula site bleed. s/p4 units pRBC Hb trending down, dark stools on prep. Discussed with Dr. Sung, plan for 2 units PRBC with HD today. For EGD/colonoscopy today. Will follow up. If no gross evidence of bleed, will consult hematology. Monitor h/h q12h and hemodynamics closely. Transfusion prn. INR noted. Risk of AC higher currently given ongoing concerns for bleed and recurrent anemia inspite of multiple transfusions. CT a/P neg for collection/hematoma. Home BP meds as tolerated. ISS, diabetic diet. Cardiology input appreciated, ASA/plavix per Cardiology/GI and clinical course. Possible transition to Eliquis once bleed concerns ruled out and h/h stable. Patient feels might have double dosed himself prior to admission, ?incorrect administration. Does not take it on specific time. Counseled in detail about scheduling coumadin at fixed time of the day and additional reminder/alarm to ensure the same. DVTPPX place on SCDs Dispo patient requested transfer to [facility]. Called [facility] Transfer center, case discussed with Dr. Mejia. Called back, declined for transfer. Will monitor closely. Plan discussed with patient and nursing in detail, all questions answered.
[2018-04-11] MEDS ORDERED: SODIUM CHLORIDE 250 ML IV PRN (09:30)
[2018-04-11] MEDS ORDERED: EPOETIN ALFA 2,000 UNIT/1 ML VIAL IVPUSH ONE (09:30)
[2018-04-11] MEDS: LIDOCAINE 5% TOPICAL PATCH TP SCH (10:22)
[2018-04-11] MEDS: PANTOPRAZOLE 40 MG TABLET (FP) PO SCH (10:22)
[2018-04-11] MEDS: LISINOPRIL 20 MG TABLET (FP) PO SCH (13:06)
[2018-04-11] MEDS: amLODIPine BESYLATE 10 MG TABLET (FP) PO SCH (13:06)
[2018-04-11] MEDS: LABETALOL HCL 200 MG TABLET (FP) PO SCH ×2 (13:06→21:03)
[2018-04-11] MEDS ORDERED: PROPOFOL 20 ML ONE ×3 (14:08→14:09)
--- NOTE | 2018-04-11 14:46 | PN ---
Progress Note (short form) - Note Progress Note: EGD report and aborted colonoscopy report in chart and to be scanned into [employer] Problem List - Problems (1) Anemia Code(s): D64.9 - ANEMIA, UNSPECIFIED Qualifiers: Iron deficiency anemia type: chronic blood loss
--- NOTE | 2018-04-11 15:01 | PN ---
Progress Note (short form) - Note Progress Note: Spoke with Mr. Hansen post procedure. History of BRYAN however does not use CPAP mask. Also does not feel up to performing repeat bowel prep today (only drank 3/ 4 of golytely yesterday). I let Dr. Fleming know about this via [employer]. Problem List - Problems (1) Anemia Code(s): D64.9 - ANEMIA, UNSPECIFIED Qualifiers: Iron deficiency anemia type: chronic blood loss
[2018-04-11] MEDS ORDERED: PEG3350/SOD SULF,BICARB,CL/KCL 4,000 ML SOLN.RECON PO ONE (16:00)
--- NOTE | 2018-04-11 16:48 | PN ---
Progress Note (short form) - Note Progress Note: Renal follow up for ESRD on Hd Pt seen and examined during hemodialysis earlier today prior to EGD/Colonoscopy BP stable, UF 2.8L tolerated received 2 units PRBC no acute complaints Vital Signs Temperature 97.6 F 04/11/18 15:28 Pulse Rate 75 04/11/18 15:28 Respiratory Rate 16 04/11/18 15:28 Blood Pressure 162/67 04/11/18 15:28 O2 Sat by Pulse Oximetry (%) 98 04/11/18 15:28 Intake & Output 04/08/18 04/09/18 04/10/18 04/11/18 23:59 23:59 23:59 23:59 Intake Total 1300 1100 775 300 Output Total 0 Balance 1300 1100 775 300 Weight 81.647 kg 81.647 kg 81.703 kg 81.873 kg NAD Awake and alert Neck supple, no JVD RRR, no M/R CTA, no rales soft NT/ND Right BKA No LE edema left arm AVF CBC, BMP 04/11/18 06:10 04/11/18 06:10 Current Medications Amlodipine Besylate (Norvasc -) 10 mg PO DAILY [facility] Last Admin: 04/11/18 13:06 Dose: 10 mg Labetalol HCl (Normodyne -) 200 mg PO BID [facility] Last Admin: 04/11/18 13:06 Dose: 200 mg Lidocaine (Lidoderm Patch -) 1 patch TP DAILY [facility] Last Admin: 04/11/18 10:22 Dose: Not Given Lisinopril (Prinivil) 40 mg PO DAILY [facility] Last Admin: 04/11/18 13:06 Dose: 40 mg Miscellaneous (Lidoderm Patch Removal) 1 each MC DAILY@2200 [facility] Last Admin: 04/10/18 22:56 Dose: 1 each Pantoprazole Sodium (Protonix -) 20 mg PO DAILY [facility] Zolpidem Tartrate (Ambien -) 10 mg PO HS PRN PRN Reason: INSOMNIA Last Admin: 04/10/18 22:57 Dose: 10 mg 63 year old gentleman with Hx of ESRD on HD (x 3 years secondary to diabetic nephropathy @ [facility] dialysis in [facility]), Hypertension, DM, PVD s/p right leg amputation, Afib on A/C who presented from home with bleeding from his AVF site and found to have INR of 11 and Hgb of 6. #Acute anemia from blood loss #Supratheraputic INR #ESRD on HD #Suspected GI bleed #Hypertension #DM tolerated dialysis well with PRBC transfusion for EGD/Colonoscopy, follow up results trend cbc renal diet, 1.2L fluid restriction Kenji Sung DO
--- NOTE | 2018-04-11 17:09 | PN ---
Progress Note, Physician History of Present Illness: No further bleeding, underwent EGD that did not show bleeding source, planned for colonoscopy after adequate prep. - Current Medication List Current Medications: Active Medications Amlodipine Besylate (Norvasc -) 10 mg PO DAILY [facility] Last Admin: 04/11/18 13:06 Dose: 10 mg Labetalol HCl (Normodyne -) 200 mg PO BID [facility] Last Admin: 04/11/18 13:06 Dose: 200 mg Lidocaine (Lidoderm Patch -) 1 patch TP DAILY [facility] Last Admin: 04/11/18 10:22 Dose: Not Given Lisinopril (Prinivil) 40 mg PO DAILY [facility] Last Admin: 04/11/18 13:06 Dose: 40 mg Miscellaneous (Lidoderm Patch Removal) 1 each MC DAILY@2200 [facility] Last Admin: 04/10/18 22:56 Dose: 1 each Pantoprazole Sodium (Protonix -) 20 mg PO DAILY [facility] Zolpidem Tartrate (Ambien -) 10 mg PO HS PRN PRN Reason: INSOMNIA Last Admin: 04/10/18 22:57 Dose: 10 mg - Objective Vital Signs: Vital Signs Temperature 97.6 F 04/11/18 15:28 Pulse Rate 75 04/11/18 15:28 Respiratory Rate 16 04/11/18 15:28 Blood Pressure 162/67 04/11/18 15:28 O2 Sat by Pulse Oximetry (%) 95 04/11/18 16:00 Constitutional: Yes: No Distress, Calm, Thin Neck: Yes: Supple Cardiovascular: Yes: Regular Rate and Rhythm Respiratory: Yes: Regular, CTA Bilaterally Gastrointestinal: Yes: Soft, Hypoactive Bowel Sounds Extremities: Yes: Amputation (Right BKA) Edema: No Labs: CBC, BMP 04/11/18 06:10 04/11/18 06:10 INR, PTT INR 1.50 (0.83-1.09) H 04/11/18 06:10 Problem List - Problems (1) Presence of drug-eluting stent in right coronary artery Code(s): Z95.5 - PRESENCE OF CORONARY ANGIOPLASTY IMPLANT AND GRAFT (2) Coronary artery disease Code(s): I25.10 - ATHSCL HEART DISEASE OF [place] CORONARY ARTERY W/O ANG PCTRS Qualifiers: Coronary Disease-Associated Artery/Lesion type: [place] artery [place] vs. transplanted heart: [place] heart Associated angina: without angina Qualified Code(s): I25.10 - Atherosclerotic heart disease of [place] coronary artery without angina pectoris (3) Pre-procedural cardiovascular examination Code(s): Z01.810 - ENCOUNTER FOR PREPROCEDURAL CARDIOVASCULAR EXAMINATION (4) Supratherapeutic INR Code(s): R79.1 - ABNORMAL COAGULATION PROFILE (5) End-stage renal disease Code(s): N18.6 - END STAGE RENAL DISEASE (6) Hyperlipidemia Code(s): E78.5 - HYPERLIPIDEMIA, UNSPECIFIED Qualifiers: Hyperlipidemia type: pure hypercholesterolemia Qualified Code(s): E78.00 - Pure hypercholesterolemia, unspecified; E78.0 - Pure hypercholesterolemia (7) Hypertensive cardiomyopathy Code(s): I11.9 - HYPERTENSIVE HEART DISEASE WITHOUT HEART FAILURE; I43 - CARDIOMYOPATHY IN DISEASES CLASSIFIED ELSEWHERE Qualifiers: Heart failure presence: without heart failure Qualified Code(s): I11.9 - Hypertensive heart disease without heart failure; I43 - Cardiomyopathy in diseases classified elsewhere (8) Anemia Code(s): D64.9 - ANEMIA, UNSPECIFIED Qualifiers: Iron deficiency anemia type: chronic blood loss (9) Bleeding diathesis Code(s): D69.9 - HEMORRHAGIC CONDITION, UNSPECIFIED (10) Paroxysmal atrial fibrillation Code(s): I48.0 - PAROXYSMAL ATRIAL FIBRILLATION Assessment/Plan 12/16/2017 [facility]: ALEC 85% ostial and prox RCA 1. Acute anemia from blood loss, bleeding from AV fistula and GI blood losses in setting of supratherapeutic INR 2. ESRD on HD 3. CAD s/p ALEC pRCA 12/16/2017 4. Hypertension 5. Type 2 DM 6. Paroxysmal AF 7. PAD s/p right BKA 8. Hyperlipidemia P:1. Correcting coagulopathy, hold Plavix awaiting achievement of hemostasis, reviewed cath report from [facility] 2. Transfuse pRBC to maintain Hgb>8.0 3. HD per renal 4. Continue Lipitor 40 qhs, Labetolol 200 bid, Norvasc 10 qd and lisinopril 40 qd as hemodynamics tolerate 5. Given absence of symptoms of acute coronary syndrome, decompensated CHF and malignant arrhythmia, and recent coronary revascularization 12/16/2017, may proceed with colonoscopy without further cardiovascular testing. Given recent ALEC implantation, will resume ASA 81 qd tanner-procedure as INR<2.0, otherwise resume Plavix 75 qd alone once INR<2.0 after procedures are performed, agree with maintenance on Plavix alone without ASA while on concomitant anticoagulation. Consideration for switch from coumadin to Eliquis 5 bid given difficulty with INR control, d/w patient. 6. Protonix 40 bid per GI
[2018-04-11] MEDS: ASPIRIN COATED 81 MG TABLET.EC PO SCH (17:26)
[2018-04-11 18:43] LABS: BASO % 0.4 % (0-2.0); EOS % 1.1 % (0-4.5); HEMATOCRIT 27.7 % (35.4-49); HEMOGLOBIN 9.2 GM/dL (11.7-16.9); MCH 30.9 pg (25.7-33.7); MCHC 33.4 g/dl (32.0-35.9); MEAN CELL VOLUME 92.5 fl (80-96); MEAN PLT VOLUME 8.2 fl (7.5-11.1); MONO % 8.7 % (3.8-10.2); NEUT % 81.8 % (42.8-82.8); PLATELET COUNT 234 K/MM3 (134-434); RDW 19.1 % (11.9-15.9); WHITE BLOOD COUNT 11.3 K/mm3 (4.0-10.0)
--- NOTE | 2018-04-11 19:42 | PN ---
Physical Exam: SUBJECTIVE: Patient seen and examined at bedside this morning. No acute events overnight. For HD and EGD/colonoscopy today. Denies chest pain, SOB, palpitations, abdominal pain. Still reports passage of dark stools. OBJECTIVE: Vital Signs Period Temp Pulse Resp BP Sys/Gonzáles Pulse Ox Last 24 Hr 97.6 F-98.5 F 52-115 16-21 101-190/51-87 95-100 GENERAL: The patient is awake, alert, and fully oriented, in no acute distress. HEAD: Normal with no signs of trauma. EYES: PERRLA, EOMI, sclera anicteric, conjunctiva clear. ENT: Ears normal, nares patent, oropharynx clear without exudates, moist mucous membranes. LUNGS: Breath sounds equal, clear to auscultation bilaterally, no wheezes, no crackles, no accessory muscle use. HEART: Regular rate and rhythm, S1, S2 without murmur, rub or gallop. ABDOMEN: Soft, nontender, nondistended, normoactive bowel sounds. EXTREMITIES: 2+ pulses, warm, well-perfused, no edema. Left AV fistula site: clean, no bleeding NEUROLOGICAL: Cranial nerves II through XII grossly intact. Normal speech, gait not observed. PSYCH: Normal mood, normal affect. SKIN: Warm, dry, normal turgor, no rashes or lesions noted Laboratory Results - last 24 hr 04/07/18 04/10/18 04/10/18 20:45 20:30 22:55 WBC 11.1 H RBC 2.37 L Hgb 7.4 L Hct 22.4 L MCV 94.5 MCH 31.4 MCHC 33.2 RDW 18.8 H Plt Count 240 D MPV 8.4 Absolute Neuts (auto) Neutrophils % Lymphocytes % Monocytes % Eosinophils % Basophils % Nucleated RBC % PT with INR INR Sodium Potassium Chloride Carbon Dioxide Anion Gap BUN Creatinine Creat Clearance w eGFR POC Glucometer 79 Random Glucose Calcium Phosphorus Magnesium Blood Type A POSITIVE Antibody Screen Crossmatch See Detail 04/11/18 04/11/18 04/11/18 00:40 06:10 06:10 WBC 10.7 H RBC 2.16 L Hgb 6.9 L* Hct 20.7 L MCV 95.8 MCH 31.7 MCHC 33.1 RDW 18.7 H Plt Count 213 MPV 8.1 Absolute Neuts (auto) Neutrophils % Lymphocytes % Monocytes % Eosinophils % Basophils % Nucleated RBC % PT with INR 17.80 H INR 1.50 H Sodium Potassium Chloride Carbon Dioxide Anion Gap BUN Creatinine Creat Clearance w eGFR POC Glucometer Random Glucose Calcium Phosphorus Magnesium Blood Type A POSITIVE Antibody Screen Negative Crossmatch See Detail 04/11/18 04/11/18 04/11/18 06:10 06:21 17:20 WBC 11.3 H RBC 3.00 L Hgb 9.2 L Hct 27.7 L D MCV 92.5 MCH 30.9 MCHC 33.4 RDW 19.1 H Plt Count 234 MPV 8.2 Absolute Neuts (auto) 9.2 H Neutrophils % 81.8 Lymphocytes % 8.0 D Monocytes % 8.7 Eosinophils % 1.1 Basophils % 0.4 Nucleated RBC % 0 PT with INR INR Sodium 141 Potassium 4.7 Chloride 100 Carbon Dioxide 26 Anion Gap 16 BUN 84 H Creatinine 10.4 H* Creat Clearance w eGFR 5.03 POC Glucometer 92 Random Glucose 76 Calcium 8.4 L Phosphorus 5.8 H Magnesium 2.0 Blood Type Antibody Screen Crossmatch Active Medications Generic Name Dose Route Start Last Admin Trade Name Freq PRN Reason Stop Dose Admin Amlodipine Besylate 10 mg 04/10/18 10:00 04/11/18 13:06 Norvasc - PO 10 mg DAILY [facility] Administration Aspirin 81 mg 04/11/18 17:15 04/11/18 17:26 Ecotrin - PO 81 mg DAILY MIKAYLA Administration Labetalol HCl 200 mg 04/10/18 10:00 04/11/18 13:06 Normodyne - PO 200 mg BID MIKAYLA Administration Lidocaine 1 patch 04/07/18 21:30 04/11/18 10:22 Lidoderm Patch - TP Not Given DAILY [facility] Lisinopril 40 mg 04/10/18 10:45 04/11/18 13:06 Prinivil PO 40 mg DAILY [facility] Administration Miscellaneous 1 each 04/07/18 22:00 04/10/18 22:56 Lidoderm Patch Removal MC 1 each DAILY@2200 MIKAYLA Administration Pantoprazole Sodium 20 mg 04/12/18 10:00 Protonix - PO DAILY [facility] Zolpidem Tartrate 10 mg 04/09/18 21:00 04/10/18 22:57 Ambien - PO 10 mg HS PRN Administration INSOMNIA ASSESSMENT/PLAN: Patient is a 63 year old male with past medical history of ESRD on HD ([facility]), HTN , DM, PVD, AFib on coumadin, CAD s/p ALEC on Plavix, presented with bleeding at AV fistula site with INR of 11. 35 # Supratherapuetic INR: resolved -INR 11.35 on admission, INR today 1.5 -Hgb 6.9 today, patient received additional 2 units of pRBC today while on HD -Repeat Hgb 9.2 -Patient had HD today. ([facility]) -Will give Vit K 2.5 with INR of >4 -Hold Warfarin for now. #Anemia: may be 2/2 Acute Blood Loss; r/o GI overt blood loss -FOBT+ -Patient denies gross bleeding per rectum, but reports he has black stools since he started taking iron pills -GI (Dr. Stokes) consulted. Recommendations appreciated. -EGD done today - Gastritis, Hiatal hernia -Colonoscopy aborted due to poor bowel prep -For repeat colonoscopy tomorrow. -Clear liquids -Correct coagulopathy -Protonix 40mg BID. If development of overt melena, change to PPI drip, keep NPO and transfer to ICU -Transfuse Hgb >8. -Repeat CBC in am #ESRD on HD ( [facility]) -Nephrology (Dr. Sung) consulted. Recommendations appreciated. -For HD ([facility]) -Will receive 3rd unit pRBC while on dialysis -Repeat CBC and INR post-transfusion and dialysis -Renal diet, 1.2 L fluid restriction -Avoid Nephrotoxic agents #CAD s/p stent -Cardiology (Dr. Queen) consulted. Recommendations appreciated -Resume Lipitor 40, Labetolol 200mg BID, Norvasc 10mg daily as hemodynamics tolerate -Given absence of symptoms of ACS, decompensated CHF, malignant arrhythmia, and recent coronary revascularization 12/16/2017, may proceed with EGD/colonoscopy without further cardiovascular testing. -given recent ALEC implantation, resume ASA 81mg daily tanner-procedure once INR < 2.0, otherwise resume Plavix 75 mg daily once INR <2.0 if procedures are not planned, agree with maintenance on Plavix alone without ASA while on concomitant anticoagulation. -Consideration for switch from coumadin to Eliquis 5 mg BID given difficulty with INR control. -Continue Lipitor 40 qhs, Labetolol 200 bid, Norvasc 10 qd and lisinopril 40 qd as hemodynamics tolerate #Atrial fibrillation: rate controlled -Hold warfarin for now -will monitor INR #DM -Pt off previous DM meds. -A1c pending. -Will continue to monitor. #Hypertension -Resume home meds if BP is elevated -Monitor #FEN -Not on any standing fluids -Limit to 1.2L of fluid -electrolytes wnl, routine bmp monitoring -Renal/Diabetic diet #DVT ppx -SCD's #Disposition -admit to med-surg Visit type - Emergency Visit Emergency Visit: Yes ED Registration Date: 04/08/18 Care time: The patient presented to the Emergency Department on the above date and was hospitalized for further evaluation of their emergent condition. - New Patient This patient is new to me today: Yes Date on this admission: 04/12/18 - Critical Care Critical Care patient: No
[2018-04-11 20:57] LABS: HEMATOCRIT 26.7 % (35.4-49); MCH 30.8 pg (25.7-33.7); MCHC 33.6 g/dl (32.0-35.9); MEAN CELL VOLUME 91.5 fl (80-96); MEAN PLT VOLUME 8.1 fl (7.5-11.1); PLATELET COUNT 224 K/MM3 (134-434); RBC 2.91 M/mm3 (4.00-5.60); RDW 18.6 % (11.9-15.9); WHITE BLOOD COUNT 11.1 K/mm3 (4.0-10.0)
[2018-04-11] MEDS: LIDOCAINE PATCH REMOVAL MC SCH (21:04)
[2018-04-11] MEDS: ZOLPIDEM TARTRATE 5 MG TABLET PO PRN (22:17)
[2018-04-12 07:09] LABS: BASO % 0.5 % (0-2.0); EOS % 1.9 % (0-4.5); HEMATOCRIT 27.4 % (35.4-49); HEMOGLOBIN 9.2 GM/dL (11.7-16.9); LYMPH % 11.6 % (8-40); MCH 30.9 pg (25.7-33.7); MCHC 33.5 g/dl (32.0-35.9); MEAN PLT VOLUME 7.7 fl (7.5-11.1); PLATELET COUNT 239 K/MM3 (134-434); RBC 2.98 M/mm3 (4.00-5.60); RDW 19.3 % (11.9-15.9); WHITE BLOOD COUNT 10.8 K/mm3 (4.0-10.0)
[2018-04-12 08:09] LABS: ANION GAP 11 MMOL/L (8-16); BLOOD UREA NITROGEN 37 mg/dL (7-18); CALCIUM 8.9 mg/dL (8.5-10.1); CHLORIDE 102 mmol/L (98-107); CO2 28 mmol/L (21-32); CREATININE 6.4 mg/dL (0.55-1.3); GLUCOSE,RANDOM 76 mg/dL (74-106); SODIUM 140 mmol/L (136-145)
[2018-04-12 08:14] LABS: INR 1.42 (0.83-1.09); PROTHROMBIN TIME (PATIENT) 16.8 SEC (9.7-13.0)
[2018-04-12] MEDS: amLODIPine BESYLATE 10 MG TABLET (FP) PO SCH (09:12)
[2018-04-12] MEDS: LISINOPRIL 20 MG TABLET (FP) PO SCH (09:12)
[2018-04-12] MEDS: LABETALOL HCL 200 MG TABLET (FP) PO SCH (09:12)
[2018-04-12] MEDS: LIDOCAINE 5% TOPICAL PATCH TP SCH (09:13)
[2018-04-12] MEDS ORDERED: PANTOPRAZOLE 20 MG TABLET (FP) PO SCH (10:00)
--- NOTE | 2018-04-12 11:37 | PN ---
Progress Note (short form) - Note Progress Note: Colonoscopy report placed in procedural section of physical chart and to be scanned into [employer]. Significant BRYAN symptoms observed during this procedure as well. consider pulmonary evaluation and advised patient to use CPAP machine at night as he has not been doing so. Problem List - Problems (1) Anemia Code(s): D64.9 - ANEMIA, UNSPECIFIED Qualifiers: Iron deficiency anemia type: chronic blood loss
[2018-04-12] MEDS: ASPIRIN COATED 81 MG TABLET.EC PO SCH (13:40)
[2018-04-12 14:18] VITALS: BP 158/82; PULSE 86; TEMP 98.5
--- NOTE | 2018-04-12 14:43 | PN ---
Teaching Attending Note Name of Resident: Jessica Hodge ATTENDING PHYSICIAN STATEMENT I saw and evaluated the patient. I reviewed the resident's note and discussed the case with the resident. I agree with the resident's findings and plan as documented. SUBJECTIVE:asymptomatic. states his stools are no longer black in color. no more bleeding from AV fistula. dneies CP, SOB, fever, chills, N/V/C/D OBJECTIVE: Last Vital Signs Temp Pulse Resp BP Pulse Ox 98.5 F 86 18 158/82 94 L 04/12/18 14:16 04/12/18 14:16 04/12/18 14:16 04/12/18 14:16 04/12/18 12:09 General NAD Extremities no bleeding noted on LUE. palpable thrill ASSESSMENT AND PLAN: 63 yo M with PMHx of ESRD on HD (x 3 years secondary to diabetic nephropathy @ [facility] dialysis in [facility]), Hypertension, DM, PVD s/p right BKA, Afib on A/C with coumadin per INR, CAD s/p ALEC to prox RCA December 16, 2017 at [facility] on Plavix, admitted with bleeding from Av fistula site, coumadin coagulopathy (INR 11), and dark stools for months 1. supratherapeutic INR- with active bleeding at AV fistula site and melena. INR now <1.5. was re-started on asa and plavix/coumadin held. EGD/colonoscopy done showing no signs of active bleeding. will switch coumadin to eliquis. risks and benefits discussed with patient in detail and need to monitor bleeding. will switch asa to plavix. close monitoring while on treatment. d/c asa. 2. acute blood loss anemia- due to supratherpeutic INR. s/p 6 units PRBC. Hgb now is stable. no signs of active bleeding. should have hgb studies repeated in 1-2 weeks. 3. ACute hypoxia- noted during procedure pt would desaturate. has known BRYAN and is not compliant with machine. states he has it at home. encouraged him to start using it and to call pulmonogist (doctor in the [place]) to schedule follow up as may need repeat polysomgraphy as last test was >5years ago. d/w risks and benefits of non-compliance 4. ESRD on HD (being worked up for transplant)- cont per normal schedule 5. HTN- controlled. cont current management 6. NIDDM- resume home regimen 7. PVD s/p Right BKA 8. CAD s/p ALEC to Prox RCA 12/16/2017- d/c on plavix hold asa 9. Discharge plan discussed with patient in detail, all questions answered. d/c home
--- NOTE | 2018-04-12 15:50 | PN ---
Progress Note, Physician Chief Complaint: Events noted Not in distress History of Present Illness: Patient was seen and examined. Awake and alert. Chart was reviewed Denies chest pain, SOB or palpitations Post GI work up - Current Medication List Current Medications: Active Medications Amlodipine Besylate (Norvasc -) 10 mg PO DAILY [facility] Last Admin: 04/12/18 09:12 Dose: 10 mg Aspirin (Ecotrin -) 81 mg PO DAILY [facility] Last Admin: 04/12/18 13:40 Dose: 81 mg Labetalol HCl (Normodyne -) 200 mg PO BID [facility] Last Admin: 04/12/18 09:12 Dose: 200 mg Lidocaine (Lidoderm Patch -) 1 patch TP DAILY [facility] Last Admin: 04/12/18 09:13 Dose: 1 patch Lisinopril (Prinivil) 40 mg PO DAILY [facility] Last Admin: 04/12/18 09:12 Dose: 40 mg Miscellaneous (Lidoderm Patch Removal) 1 each MC DAILY@2200 [facility] Last Admin: 04/11/18 21:04 Dose: Not Given Pantoprazole Sodium (Protonix -) 20 mg PO DAILY [facility] Last Admin: 04/12/18 13:40 Dose: 20 mg Zolpidem Tartrate (Ambien -) 10 mg PO HS PRN PRN Reason: INSOMNIA Last Admin: 04/11/18 22:17 Dose: 10 mg - Objective Vital Signs: Vital Signs Temperature 98.5 F 04/12/18 14:16 Pulse Rate 86 04/12/18 14:16 Respiratory Rate 18 04/12/18 14:16 Blood Pressure 158/82 04/12/18 14:16 O2 Sat by Pulse Oximetry (%) 94 L 04/12/18 12:09 Neck: Yes: Supple Cardiovascular: Yes: Regular Rate and Rhythm, S1, S2 Respiratory: Yes: CTA Bilaterally Gastrointestinal: Yes: Normal Bowel Sounds, Soft. No: Tenderness Edema: No Labs: CBC, BMP 04/12/18 06:00 04/12/18 06:00 INR, PTT INR 1.42 (0.83-1.09) H 04/12/18 06:00 Problem List - Problems (1) Coronary artery disease Code(s): I25.10 - ATHSCL HEART DISEASE OF [place] CORONARY ARTERY W/O ANG PCTRS Qualifiers: Coronary Disease-Associated Artery/Lesion type: [place] artery [place] vs. transplanted heart: [place] heart Associated angina: without angina Qualified Code(s): I25.10 - Atherosclerotic heart disease of [place] coronary artery without angina pectoris (2) End-stage renal disease Code(s): N18.6 - END STAGE RENAL DISEASE (3) Hyperlipidemia Code(s): E78.5 - HYPERLIPIDEMIA, UNSPECIFIED Qualifiers: Hyperlipidemia type: pure hypercholesterolemia Qualified Code(s): E78.00 - Pure hypercholesterolemia, unspecified; E78.0 - Pure hypercholesterolemia (4) Hypertensive cardiomyopathy Code(s): I11.9 - HYPERTENSIVE HEART DISEASE WITHOUT HEART FAILURE; I43 - CARDIOMYOPATHY IN DISEASES CLASSIFIED ELSEWHERE Qualifiers: Heart failure presence: without heart failure Qualified Code(s): I11.9 - Hypertensive heart disease without heart failure; I43 - Cardiomyopathy in diseases classified elsewhere (5) Paroxysmal atrial fibrillation Code(s): I48.0 - PAROXYSMAL ATRIAL FIBRILLATION (6) Presence of drug-eluting stent in right coronary artery Code(s): Z95.5 - PRESENCE OF CORONARY ANGIOPLASTY IMPLANT AND GRAFT Assessment/Plan 1. Acute anemia from blood loss, bleeding from AV fistula and GI blood losses in setting of supratherapeutic INR 2. ESRD on HD 3. CAD s/p ALEC pRCA 12/16/2017 4. Hypertension 5. Type 2 DM 6. Paroxysmal AF 7. PAD s/p right BKA 8. Hyperlipidemia PLAN: 1. GI work up in progress 2. Transfuse PRBC to maintain Hgb>8.0 3. HD per renal 4. Continue Lipitor 10 QHS, Labetolol 200 bid, Norvasc 10 qd and Lisinopril 40 qd as tolerated 5. Consider Eliquis as opposed to Coumadin 6. Plavix to be used instead of EKATERINA Vale MD
--- NOTE | 2018-04-12 16:11 | PN ---
Progress Note (short form) - Note Progress Note: Renal follow up for ESRD on Hd Pt seen and examined during hemodialysis earlier today prior to EGD/Colonoscopy BP stable, UF 2.8L tolerated received 2 units PRBC no acute complaints Vital Signs Temperature 97.6 F 04/11/18 15:28 Pulse Rate 75 04/11/18 15:28 Respiratory Rate 16 04/11/18 15:28 Blood Pressure 162/67 04/11/18 15:28 O2 Sat by Pulse Oximetry (%) 98 04/11/18 15:28 Intake & Output 04/08/18 04/09/18 04/10/18 04/11/18 23:59 23:59 23:59 23:59 Intake Total 1300 1100 775 300 Output Total 0 Balance 1300 1100 775 300 Weight 81.647 kg 81.647 kg 81.703 kg 81.873 kg NAD Awake and alert Neck supple, no JVD RRR, no M/R CTA, no rales soft NT/ND Right BKA No LE edema left arm AVF CBC, BMP 04/11/18 06:10 04/11/18 06:10 Current Medications Amlodipine Besylate (Norvasc -) 10 mg PO DAILY [facility] Last Admin: 04/11/18 13:06 Dose: 10 mg Labetalol HCl (Normodyne -) 200 mg PO BID [facility] Last Admin: 04/11/18 13:06 Dose: 200 mg Lidocaine (Lidoderm Patch -) 1 patch TP DAILY [facility] Last Admin: 04/11/18 10:22 Dose: Not Given Lisinopril (Prinivil) 40 mg PO DAILY [facility] Last Admin: 04/11/18 13:06 Dose: 40 mg Miscellaneous (Lidoderm Patch Removal) 1 each MC DAILY@2200 [facility] Last Admin: 04/10/18 22:56 Dose: 1 each Pantoprazole Sodium (Protonix -) 20 mg PO DAILY [facility] Zolpidem Tartrate (Ambien -) 10 mg PO HS PRN PRN Reason: INSOMNIA Last Admin: 04/10/18 22:57 Dose: 10 mg 63 year old gentleman with Hx of ESRD on HD (x 3 years secondary to diabetic nephropathy @ [facility] dialysis in [facility]), Hypertension, DM, PVD s/p right leg amputation, Afib on A/C who presented from home with bleeding from his AVF site and found to have INR of 11 and Hgb of 6. #Acute anemia from blood loss #Supratheraputic INR #ESRD on HD #Suspected GI bleed #Hypertension #DM tolerated dialysis well with PRBC transfusion for EGD/Colonoscopy, follow up results trend cbc renal diet, 1.2L fluid restriction Kenji Sung DO
--- NOTE | 2018-04-12 16:14 | PN ---
Progress Note (short form) - Note Progress Note: Renal follow up for ESRD on Hd Pt seen and examined at the bedside s/p colonoscopy better this am no acute complaints going home today Vital Signs Temperature 98.5 F 04/12/18 14:16 Pulse Rate 86 04/12/18 14:16 Respiratory Rate 18 04/12/18 14:16 Blood Pressure 158/82 04/12/18 14:16 O2 Sat by Pulse Oximetry (%) 94 L 04/12/18 12:09 Intake & Output 04/09/18 04/10/18 04/11/18 04/12/18 23:59 23:59 23:59 23:59 Intake Total 1100 775 800 525 Output Total 0 Balance 1100 775 800 525 Weight 81.647 kg 81.703 kg 81.873 kg 81.42 kg NAD Awake and alert Neck supple, no JVD RRR, no M/R CTA, no rales soft NT/ND Right BKA No LE edema left arm AVF CBC, BMP 04/12/18 06:00 04/12/18 06:00 Current Medications Amlodipine Besylate (Norvasc -) 10 mg PO DAILY [facility] Last Admin: 04/12/18 09:12 Dose: 10 mg Aspirin (Ecotrin -) 81 mg PO DAILY [facility] Last Admin: 04/12/18 13:40 Dose: 81 mg Labetalol HCl (Normodyne -) 200 mg PO BID [facility] Last Admin: 04/12/18 09:12 Dose: 200 mg Lidocaine (Lidoderm Patch -) 1 patch TP DAILY [facility] Last Admin: 04/12/18 09:13 Dose: 1 patch Lisinopril (Prinivil) 40 mg PO DAILY [facility] Last Admin: 04/12/18 09:12 Dose: 40 mg Miscellaneous (Lidoderm Patch Removal) 1 each MC DAILY@2200 [facility] Last Admin: 04/11/18 21:04 Dose: Not Given Pantoprazole Sodium (Protonix -) 20 mg PO DAILY [facility] Last Admin: 04/12/18 13:40 Dose: 20 mg Zolpidem Tartrate (Ambien -) 10 mg PO HS PRN PRN Reason: INSOMNIA Last Admin: 04/11/18 22:17 Dose: 10 mg 63 year old gentleman with Hx of ESRD on HD (x 3 years secondary to diabetic nephropathy @ [facility] in [facility]), Hypertension, DM, PVD s/p right leg amputation, Afib on A/C who presented from home with bleeding from his AVF site and found to have INR of 11 and Hgb of 6. #Acute anemia from blood loss #Supratheraputic INR #ESRD on HD #Suspected GI bleed #Hypertension #DM no acute indication for [employer]PER[employer] today next tx tomorrow as outpatient Hgb stable s/p EGD and Colonoscopy discharge as per primary Kenji Sung DO
--- NOTE | 2018-04-12 16:22 | DS ---
Physical Exam: SUBJECTIVE: Patient seen and examined at bedside this morning. No acute events overnight. Patient has no new complaints. OBJECTIVE: Vital Signs Period Temp Pulse Resp BP Sys/Gonzáles Pulse Ox Last 24 Hr 97.9 F-98.7 F 75-86 18-21 129-180/62-92 94-99 PHYSICAL EXAM GENERAL: The patient is awake, alert, and fully oriented, in no acute distress. HEAD: Normal with no signs of trauma. EYES: PERRLA, EOMI, sclera anicteric, conjunctiva clear. ENT: Ears normal, nares patent, oropharynx clear without exudates, moist mucous membranes. LUNGS: Breath sounds equal, clear to auscultation bilaterally. HEART: Regular rate and rhythm, S1, S2 without murmur, rub or gallop. ABDOMEN: Soft, nontender, nondistended, normoactive bowel sounds. EXTREMITIES: 2+ pulses, warm, well-perfused, no edema. Left AV fistula site: clean, no bleeding NEUROLOGICAL: Cranial nerves II through XII grossly intact. Normal speech, gait not observed. PSYCH: Normal mood, normal affect. SKIN: Warm, dry, normal turgor, no rashes or lesions noted LABS Laboratory Results - last 24 hr 04/11/18 04/11/18 04/12/18 17:20 20:45 06:00 WBC 11.3 H 11.1 H RBC 3.00 L 2.91 L Hgb 9.2 L 9.0 L Hct 27.7 L D 26.7 L MCV 92.5 91.5 MCH 30.9 30.8 MCHC 33.4 33.6 RDW 19.1 H 18.6 H Plt Count 234 224 MPV 8.2 8.1 Absolute Neuts (auto) 9.2 H Neutrophils % 81.8 Lymphocytes % 8.0 D Monocytes % 8.7 Eosinophils % 1.1 Basophils % 0.4 Nucleated RBC % 0 PT with INR 16.80 H INR 1.42 H Sodium Potassium Chloride Carbon Dioxide Anion Gap BUN Creatinine Creat Clearance w eGFR Random Glucose Calcium 04/12/18 04/12/18 06:00 06:00 WBC 10.8 H RBC 2.98 L Hgb 9.2 L Hct 27.4 L MCV 92.0 MCH 30.9 MCHC 33.5 RDW 19.3 H Plt Count 239 MPV 7.7 Absolute Neuts (auto) 8.1 H Neutrophils % 75.0 Lymphocytes % 11.6 D Monocytes % 11.0 H Eosinophils % 1.9 Basophils % 0.5 Nucleated RBC % 0 PT with INR INR Sodium 140 Potassium 4.0 Chloride 102 Carbon Dioxide 28 Anion Gap 11 BUN 37 H Creatinine 6.4 H Creat Clearance w eGFR 8.80 Random Glucose [address] abd/pelvis without contrast - Borderline hepatomegaly. Small gallstone without CT evidence of acute cholecystitis. There are extensive vascular calcifications in the abdomen pelvis. No CT evidence of an acute process in the abdomen and pelvis. No free fluid or fluid collection is seen in the abdomen pelvis. Notes made of a small fat-containing umbilical hernia. Multilevel degenerative disc disease in the lumbar spine. Tibia/Fibula xray, right - Patient is status post below right knee amputation. A right knee prosthesis is present in satisfactory alignment. No gross acute fracture, dislocation, bone destruction or soft tissue swelling is identified. Multiple surgical metallic clips and extensive vascular calcifications are present. HOSPITAL COURSE: Date of Admission:04/08/18 Date of Discharge: 04/12/18 Patient is a 63 year old male with past medical history of ESRD on HD (MWF), HTN , DM, PVD, AFib on coumadin, CAD s/p ALEC on Plavix, presented with bleeding at AV fistula site with INR of 11.35. Fistula was sutured close and bleeding was controlled. Patient was given vitamin K, warfarin was put on hold and INR was trended. Cardiology and nephrology consulted. Patient had hemodialysis as scheduled (MWF). Patient remained anemic despite achieving therapeutic INR levels and was transfused a total of 5 units of pRBCs. Hemoglobin then remained stable. CT scan of abdomen and pelvis done. FOBT was positive. Gastroenterology consulted. EGD/Colonscopy done which revealed gastritis, duodenitis and a normal colon. Patient was discharged with instructions to follow-up with GI, nephro, cardio and PCP. Warfarin was switched to Eliquis. Prior to discharge, 1 suture was removed from AV fistula site, no bleeding noted. Minutes to complete discharge: 40 Discharge Summary Reason For Visit: INR; BLEEDING DIATHESIS DUE TO VIT K DEFICIENCY Current Active Problems Abnormal INR (Acute) Anemia (Acute) Bleeding diathesis (Acute) Coronary artery disease (Acute) End-stage renal disease (Acute) Hyperlipidemia (Acute) Hypertensive cardiomyopathy (Acute) Paroxysmal atrial fibrillation (Acute) Pre-procedural cardiovascular examination (Acute) Presence of drug-eluting stent in right coronary artery (Acute) Supratherapeutic INR (Acute) Condition: Stable - Instructions Diet, Activity, Other Instructions: You were admitted because you had continuous bleeding at the site of your AV fistula in the left arm after hemodialysis. It was sutured at the ED and the bleeding stopped. You were also found to have elevated INR of 11.35. You were given Vitamin K and Coumadin was stopped. We followed your INR levels daily until it was normal. You were noted to have anemia, and you received a total of 5 units of blood. Several tests were done to rule out any active bleeding. Fecal occult blood test was positive. It is a lab test used to check your stool for blood. You underwent EGD and Colonoscopy to better see the inside of your stomach and bowels. You were found to have gastritis, (inflammation of the stomach wall) and some small internal hemorrhoids. During the procedure, you were noted to have significant snoring and your oxygen levels came down where they had to put you on oxygen. You may have obstructive sleep apnea and will need to follow-up with a sleepy study. Please re-start using your cpap machine and make an appointment soon to have your machine titrated as needed. Please take the following medications as prescribed: 1. Pantoprazole 20mg once a day 2. Miralax 17g twice daily 3. Eliquis 5 mg twice a day. --Like your Coumadin, you still have an increased risk of bleeding and bruising so be careful with falls, shaving, and bumping into objects. You do not need weekly lab values to test the thinness of your blood and are not restricted in diet besides maintaining a balanced diet 4. Resume Plavix 75mg once a day. 5. Stop taking Aspirin. 6. Stop taking warfarin. You will be taking Eliquis instead. 7. Avoid NSAIDs. Continue your other home medications as prescribed. Eat a high fiber diet and drink plenty of water. Follow-ups: -Follow-up with the GI doctor (Dr. Stokes). It is recommended that you repeat colonoscopy in 1 year. -Follow-up with your pulmonology if you can not or want to you can follow up with pulmonary here. -Follow-up with your sand cutting machine operator. If you do not have one, you can call Dr. Queen's office to make an appointment within 1 week. -Please follow-up with your primary care doctor (Dr. Lan) within 1 week. Call 911 or go to the ED if with any worsening fevers, chills, shortness of breath, bleeding, or any new concerns noted. Referrals: Mike Stokes DO [Staff Physician] - Mikie Feliciano MD [Staff Physician] - Kenji Sung MD [Staff Physician] - Mike Queen MD [Staff Physician] - Disposition: HOME - Home Medications Comprehensive Discharge Medication List: Ambulatory Orders Amlodipine Besylate 10 mg PO DAILY 04/07/18 Atorvastatin Ca [Lipitor] 40 mg PO HS 04/07/18 B Complex W-C No.20/Folic Acid [Triphrocaps Softgel] 1 mg PO 04/07/18 Clopidogrel Bisulfate [Clopidogrel] 75 mg PO 04/07/18 Gabapentin 100 mg PO DAILY 04/07/18 Labetalol HCl [Normodyne -] 200 mg PO BID 04/07/18 Lisinopril [Prinivil -] 40 mg PO DAILY 04/07/18 Zolpidem Tartrate [Ambien] 5 mg PO HS 04/07/18 Apixaban [Eliquis] 5 mg PO BID #60 tablet 04/12/18 Pantoprazole Sodium [Protonix -] 20 mg PO DAILY #30 tablet.ec 04/12/18 Polyethylene Glycol 3350 [Miralax (For Bowel Prep) -] 17 gm PO DAILY #1 bottle 04/12/18 This patient is new to me today: Yes Date on this admission: 04/12/18 Emergency Visit: Yes ED Registration Date: 04/08/18 Care time: The patient presented to the Emergency Department on the above date and was hospitalized for further evaluation of their emergent condition. Critical Care patient: No - Discharge Referral Referred to [facility] Med P.C.: No
== END 2018-04-12 17:24 | disposition home or self-care (01) | DRG 813 ==
LOC: JER 13:55 → JERBED 17:55 → UNDOADMOB 17:55 → INTOOBSV 17:55 → JERBED 20:27 → J6S 21:03 → JERBED 21:03 → J6S 22:33 → UNDOADMOB 22:33 → OBSVTOIN 04-08 09:34
PROVIDERS: ADMIT Hospitalist; ATTEND Internal Medicine
PROC: 5A1D70Z Performance of Urinary Filtration, Intermittent, Less than 6 Hours Per Day (ICD-10-PCS; 2018-04-08)
PROC: 0DJD8ZZ Inspection of Lower Intestinal Tract, Via Natural or Artificial Opening Endoscopic (ICD-10-PCS; 2018-04-11)
PROC: 5A1D70Z Performance of Urinary Filtration, Intermittent, Less than 6 Hours Per Day (ICD-10-PCS; 2018-04-11)
PROC: 30233N1 Transfusion of Nonautologous Red Blood Cells into Peripheral Vein, Percutaneous Approach (ICD-10-PCS; 2018-04-11)
PROC: 0DJD8ZZ Inspection of Lower Intestinal Tract, Via Natural or Artificial Opening Endoscopic (ICD-10-PCS; principal; 2018-04-11 13:00)
PROC: 0DJD8ZZ Inspection of Lower Intestinal Tract, Via Natural or Artificial Opening Endoscopic (ICD-10-PCS; 2018-04-12)
DX: D68.32 Hemorrhagic disorder due to extrinsic circulating anticoagulants (principal); N18.6 End stage renal disease; D62 Acute posthemorrhagic anemia; T82.838A Hemorrhage due to vascular prosthetic devices, implants and grafts, initial encounter; I12.0 Hypertensive chronic kidney disease with stage 5 chronic kidney disease or end stage renal disease; I42.8 Other cardiomyopathies; Y83.8 Other surgical procedures as the cause of abnormal reaction of the patient, or of later complication, without mention of misadventure at the time of the procedure; E11.22 Type 2 diabetes mellitus with diabetic chronic kidney disease; E11.51 Type 2 diabetes mellitus with diabetic peripheral angiopathy without gangrene; E11.21 Type 2 diabetes mellitus with diabetic nephropathy; I25.10 Atherosclerotic heart disease of native coronary artery without angina pectoris; D68.8 Other specified coagulation defects; N40.0 Benign prostatic hyperplasia without lower urinary tract symptoms; K44.9 Diaphragmatic hernia without obstruction or gangrene; K29.80 Duodenitis without bleeding; I48.0 Paroxysmal atrial fibrillation; G47.33 Obstructive sleep apnea (adult) (pediatric); K29.70 Gastritis, unspecified, without bleeding; R09.02 Hypoxemia; K80.80 Other cholelithiasis without obstruction; R16.0 Hepatomegaly, not elsewhere classified; Z89.511 Acquired absence of right leg below knee; Z79.01 Long term (current) use of anticoagulants; Z99.2 Dependence on renal dialysis
CPT/HCPCS: 36415; 36430; 36511; 73590-TC-RT-FY; 74176-TC; 80048; 80053; 82272; 82962; 83036; 83735; 84100; 85025; 85027; 85610; 85730; 86704; 86706; 86708; 86803; 86850; 86900; 86901; 86922; 87340; 90688; 93005; 93010; 99281-25; G0008; G0378; J0885; P9038; P9058

== ENCOUNTER 2018-08-02 02:35 | Inpatient (IN) | payer OTHER, BC ==
--- NOTE | 2018-08-02 02:39 | PDOC ---
History of Present Illness - General Chief Complaint: Lethargy Stated Complaint: LETHARGIC Time Seen by Provider: 08/02/18 02:38 History Source: Patient Exam Limitations: No Limitations Past History - Past Medical History Allergies/Adverse Reactions: Allergies Allergy/AdvReac Type Severity Reaction Status Date / Time No Known Allergies Allergy Verified 08/02/18 02:44 Home Medications: Ambulatory Orders Amlodipine Besylate 10 mg PO DAILY 04/07/18 Atorvastatin Ca [Lipitor] 40 mg PO HS 04/07/18 B Complex W-C No.20/Folic Acid [Triphrocaps Softgel] 1 mg PO 04/07/18 Clopidogrel Bisulfate [Clopidogrel] 75 mg PO 04/07/18 Gabapentin 100 mg PO DAILY 04/07/18 Labetalol HCl [Normodyne -] 200 mg PO BID 04/07/18 Lisinopril [Prinivil -] 40 mg PO DAILY 04/07/18 Zolpidem Tartrate [Ambien] 5 mg PO HS 04/07/18 Apixaban [Eliquis] 5 mg PO BID #60 tablet 04/12/18 Pantoprazole Sodium [Protonix -] 20 mg PO DAILY #30 tablet.ec 04/12/18 Polyethylene Glycol 3350 [Miralax (For Bowel Prep) -] 17 gm PO DAILY #1 bottle 04/12/18 Anemia: No (secondary to acute blood loss) Cardiac Disorders: Yes (A Fib) COPD: No Diabetes: Yes (A1C 11.2) Dialysis: Yes HTN: Yes Hypercholesterolemia: Yes - Surgical History Abdominal Surgery: Yes (HERNIA) Orthopedic Surgery: Yes (Right BKA, Left 1st digit amputation, Left 2nd digit partial amputation) - Suicide/Smoking/Psychosocial Hx Smoking History: Never smoked Have you smoked in the past 12 months: No Hx Alcohol Use: No Drug/Substance Use Hx: No Substance Use Type: None Hx Substance Use Treatment: No Procedures - Intubation Intubation Method: orotracheal Blade used: Mac Tube Size (Fr): 7.5 Medications: Rocuronium Tube position @ lip (cm): 22 Tube position confirmed by: Direct visualization, CO2 detector, Chest x-ray, Breath sounds Breath Sounds after Intubation: equal Intubation Complications: oral-unsuccessful attempt (tube placed on second attempt, anterior airway) Post Intubation Xray: Yes (tube in place) ED Treatment Course - LABORATORY CBC & Chemistry Diagram: 08/02/18 03:40 08/02/18 03:40 Medical Decision Making - Medical Decision Making (entered later) Pt was seen at bedside, also will be seen by attending Dr. Mustafa. Pt presenting with Vitals stable, pt afebrile. PE showed pt alert and oriented. bench hand generally intact, muscular strength and sensation intact. Clear heart and lung sounds, no JVD, b/l pedal edema, or heart murmur. No abdominal or CVA tenderness to palpation, no rebound, no guarding. Considering [vs vs] Ordered work-up including [labs] and [imaging]. Provided [interventions/meds] for improvement of [pain/symptom control]. Will continue to reassess pt and monitor for symptomatic improvement. Chest x-ray shows intubation tube in place. Soft restraints applied to b/l wrists. Spoke with Dr. Pineda Phillip (nephrology), suggested the following, and will follow the patient: Nephro team arranging urgent dialysis with nursing dials supervisor, will be done in ICU. Pt accepted by hospitalist team (Dr. Irby). Pt accepted by ICU consult. Will start propofol drip (5 mcg/kg) as pt starting to open eyes. 08/02/18 05:23 *DC/Admit/Observation/Transfer - Discharge Dispostion Condition at time of disposition: Fair - Referrals - Patient Instructions - Post Discharge Activity
--- NOTE | 2018-08-02 02:47 | PDOC ---
Attending Attestation - Resident Resident Name: Amanda Thomas - ED Attending Attestation I have performed the following: I have examined & evaluated the patient, The case was reviewed & discussed with the resident, I agree w/resident's findings & plan - HPI HPI: 08/02/18 04:57 63-year-old male with difficulty breathing and altered mental status, patient unable to provide full history due to severity of condition. - Physicial Exam PE: 08/02/18 04:58 GENERAL: Ill-appearing HEAD: No signs of trauma EYES: PERRLA, ENT:mucous membranes moist NECK: Normal ROM, supple, no lymphadenopathy, JVD LUNGS: Increased work of breathing with diminished breath sounds bilaterally with severe respiratory distress HEART: Bradycardic and regular ABDOMEN: Soft, : CHEST WALL: BACK: NEUROLOGICAL: Lethargic - Critical Care Time Total Critical Care Time: 75 Critical Care Statement: The care of this patient involved high complexity decision making to prevent further life threatening deterioration of the patient 's condition and/or to evaluate & treat vital organ system(s) failure or risk of failure. - Medical Decision Making 08/02/18 05:00 63-year-old male with severe respiratory distress and history of end-stage renal disease According to patient's grandson patient did miss dialysis recently Patient's respiratory status worsened acutely, a wide complex bradycardia was noted on EKG Patient received multiple rounds of calcium, sodium bicarbonate and insulin as well as kayexylate for severe hyperkalemia Patient intubated due to hypoxia with an O2 saturation of 60% and decreased mental status ET placement confirmed with chest x-ray as well as end-tidal CO2 monitoring Call placed to nephrology as well as the ICU team by the emergency department resident Impression severe hyperkalemia Acute respiratory failure End-stage renal disease Noncompliance with treatment regimen 08/02/18 05:06
[2018-08-02] MEDS ORDERED: CALCIUM GLUCONATE 10% - 1,000 MG/10 ML VIAL ONE ×5 (02:55→04:52)
[2018-08-02] MEDS ORDERED: RAPID SEQUENCE INTUBATION KIT NR ONE (03:03)
[2018-08-02] MEDS ORDERED: CALCIUM CHLORIDE 1 GM/10 ML *DISP.SYRIN ONE (03:13)
[2018-08-02] MEDS ORDERED: SODIUM BICARBONATE 8.4% - 50 ML ONE (03:13)
[2018-08-02] MEDS ORDERED: INSULIN REGULAR HUMAN 100 UNITS/ML *VIAL ONE ×2 (03:30→04:51)
[2018-08-02 03:31] LABS: ARTERIAL BLD GAS O2 SATURATION 99.4 % (90-98.9); ARTERIAL BLOOD GAS PCO2 47.5 mmHg (35-45); ARTERIAL BLOOD GAS pH 7.38 (7.35-7.45)
[2018-08-02] MEDS ORDERED: ALBUTEROL SO4 0.083% IH SOL 2.5 MG/3 ML VIAL.NEB. NEB ONE (03:38)
[2018-08-02] MEDS ORDERED: SODIUM POLYSTYRENE SULFONATE 15 GM/60 ML BOTTLE PO ONE (03:49)
[2018-08-02] MEDS ORDERED: ALBUTEROL SO4 0.083% IH SOL 2.5 MG/3 ML VIAL.NEB. NEB PRN (04:02)
[2018-08-02] MEDS ORDERED: CALCIUM CHLORIDE 1 GM/10 ML *DISP.SYRIN IVPUSH ONE (04:03)
[2018-08-02] MEDS ORDERED: ROCURONIUM BROMIDE 50 MG/5 ML VIAL IVPUSH ONE (04:04)
[2018-08-02] MEDS ORDERED: CALCIUM GLUCONATE 10% - 1,000 MG/10 ML VIAL IVPUSH ONE ×3 (04:04→04:44)
[2018-08-02] MEDS ORDERED: EPINEPHrine INTRACARD 1:10,000 1 MG/10 ML DISP.SYRIN IVPUSH ONE (04:05)
[2018-08-02] MEDS ORDERED: INSULIN REGULAR HUMAN 100 UNITS/ML *VIAL IVPUSH ONE ×2 (04:06→04:52)
[2018-08-02] MEDS ORDERED: DEXTROSE 50%-WATER - 25 GM/50 ML VIAL IVPUSH ONE ×2 (04:06→17:39)
[2018-08-02] MEDS ORDERED: SODIUM BICARBONATE 4.2% 5 MEQ/10 ML DISP.SYRIN IVPUSH ONE ×3 (04:08→04:42)
[2018-08-02 04:14] LABS: INR 1.28 (0.83-1.09); PROTHROMBIN TIME (PATIENT) 15.1 SEC (9.7-13.0)
[2018-08-02 04:28] LABS: BASO % 0.8 % (0-2.0); EOS % 2.3 % (0-4.5); HEMATOCRIT 34.2 % (35.4-49); HEMOGLOBIN 11.1 GM/dL (11.7-16.9); LYMPH % 9.5 % (8-40); MCHC 32.5 g/dl (32.0-35.9); MEAN CELL VOLUME 104.7 fl (80-96); MEAN PLT VOLUME 8.7 fl (7.5-11.1); MONO % 6.6 % (3.8-10.2); NEUT % 80.8 % (42.8-82.8); PLATELET COUNT 193 K/MM3 (134-434); RBC 3.26 M/mm3 (4.00-5.60); RDW 18.1 % (11.9-15.9); WHITE BLOOD COUNT 10.5 K/mm3 (4.0-10.0)
[2018-08-02 04:35] LABS: ALK PHOS 69 U/L (45-117); ANION GAP 9 MMOL/L (8-16); BILIRUBIN,TOTAL 1.2 mg/dL (0.2-1); BLOOD UREA NITROGEN 87 mg/dL (7-18); CALCIUM 10.6 mg/dL (8.5-10.1); CHLORIDE 99 mmol/L (98-107); CO2 27 mmol/L (21-32); MAGNESIUM 2.4 mg/dL (1.8-2.4); PHOSPHOROUS 4.4 mg/dL (2.5-4.9); SGOT/AST 33 U/L (15-37); SGPT/ALT 47 U/L (13-61); SODIUM 135 mmol/L (136-145); TOT PROT 5.5 g/dl (6.4-8.2)
[2018-08-02 04:38] LABS: CREATININE 12.4 mg/dL (0.55-1.3); GLUCOSE,RANDOM 547 mg/dL (74-106); POTASSIUM 9.8 mmol/L (3.5-5.1)
[2018-08-02] MEDS ORDERED: SODIUM BICARBONATE 2.4 MEQ/5 ML SDVIAL ONE (04:46)
[2018-08-02] MEDS ORDERED: DEXTROSE 50%-WATER 25 GM/50 ML DISP.SYRIN ONE ×2 (04:52→17:52)
[2018-08-02] MEDS ORDERED: FUROSEMIDE 40 MG/4 ML INJECTABLE VIAL IVPUSH ONE (04:53)
[2018-08-02] MEDS ORDERED: FUROSEMIDE 40 MG/4 ML INJECTABLE VIAL ONE (04:58)
[2018-08-02] MEDS ORDERED: SODIUM BICARBONATE 8.4% 50 MEQ/50 ML VIAL IV ONE (05:15)
[2018-08-02] MEDS ORDERED: SODIUM CHLORIDE 250 ML IV PRN (05:16)
[2018-08-02] MEDS ORDERED: PROPOFOL 2,000,000 MCG/200 ML VIAL ONE (05:29)
[2018-08-02] MEDS ORDERED: PROPOFOL 1,000,000 MCG/100 ML VIAL IVPB SCH (05:30)
[2018-08-02] MEDS ORDERED: NORMAL SALINE IVPB SCH (05:30)
[2018-08-02] MEDS ORDERED: CALCIUM GLUCONATE IVPB SCH (05:30)
[2018-08-02] MEDS ORDERED: DEXTROSE 5% IVPB SCH (05:30)
[2018-08-02] MEDS ORDERED: SODIUM BICARBONATE 8.4% - 150 MEQ in DEXTROSE 5%-NORMAL SALINE 1,000 ML IVPB SCH (05:30)
[2018-08-02] MEDS ORDERED: HYDROmorphone HCL CARPU-JECT 2 MG/1 ML DISP.SYRIN IVPUSH PRN (05:38)
--- NOTE | 2018-08-02 05:50 | PN ---
Progress Note (short form) - Note Progress Note: Brief Hospitalist Encounter Spoke with ER about admission and saw patient; in effect this is a 63 y/o AAM presenting s/p code blue likely due to hyperkalemia 2/2 missed HD. We will formally accept the patient for transfer once HD arranged and he can be moved to the ICU for dialysis. Currently, he is unstable in the ER with HR 30s, etc. intubated and with PRN sedation. Nephrology has been called and tech is en route. Drips, etc. not available now. Once they are we will go ahead and accept the patient to medicine. Last HD Wednesday (MWF via AVF). Couldn't get history from patient due to intubated on vent. CT head still pending with AMS on antiplatelet medications. PMH involves ESRD on HD, DM, HTN, HLD, PVD/PAD, Afib on coumadin, CAD with stenting 12/2017. Reviewed FH, social hx from prior notes. Meds from last DC summary include Amlodipine, ASA, Plavix, Coumadin, Labetalol, Ambien, Lisinopril On exam he is in moderate distress, ill-appearing, bradycardic with no obvious mgr, lungs with global crackles and vent associated breath sounds. Abd soft, non-tender. Moving all extremities with aparent intact sensation. Labs and imaging reviewed; consistent with profound metabolic derrangements from missed HD. Elevated troponin, CKMB, glucose to 500-range. Problems Include: -ESRD on HD -AMS (likley 2/2 toxic metabolic encephalopathy but of course must consider other causes) -Severe Hyperkalemia -Bradycardia -S/P Code Blue -DM with severe hyperglycemia -PAD/PVD s/p R-BKA -Afib on coumadin, prior admit for labile INR noted -BRYAN noncompliant with CPAP Full History and Physical to follow; he will be transported to and accepted to ICU once the drips are in place and he can be given the additional supplementary medications as ordered by nephrology.
--- NOTE | 2018-08-02 06:07 | CONSULT ---
Consult Consult Specialty:: ICU Referred by:: William Reason for Consultation:: hyperkalemia, intubated - History of Present Illness Chief Complaint: AMS History of Present Illness: pt intubated and obtunded. history obtained from chart review and ED signout. 63 yr old man with ESRD on HD(due to diabetic nephropathy), afib on eliquis, HTN , CAD s/p ALEC on plavix, DM, PVD s/p right leg amputation, missed HD and was noted by grandson to be lethargic. Pt was evaluated in the ED found to have peaked T-waves on EKG, received albuterol+insulin+ d5w+Ca gluc+ kayexalate tx for hyperkalemia. pt was intubated when he could no longer protect his airway and became bradycardic. admitted to ICU for further management. nephrology consulted for urgent dialysis, pt to be placed on bicarb drip and given Ca+ gluc to stablize hyperkalemia - Past Medical History Cardio/Vascular: Yes: AFIB, CAD (S/P cardiac stent or 10/27), HTN, Hyperlipdemia Renal/: Yes: Renal Failure (ESRD on HD M/W/F) Endocrine: Yes: Diabetes Mellitus (DM II) - Past Surgical History Past Surgical History: Yes: Amputation (Right BKA), Hernia Repair (right inguinal hernia repair), Stent - Alcohol/Substance Use Hx Alcohol Use: No History of Substance Use: reports: None - Smoking History Smoking history: Never smoked Have you smoked in the past 12 months: No - Social History Usual Living Arrangement: Alone ADL: Independent 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 History of Recent Travel: No Home Medications - Allergies Allergies/Adverse Reactions: Allergies Allergy/AdvReac Type Severity Reaction Status Date / Time No Known Allergies Allergy Verified 08/02/18 02:44 - Home Medications Home Medications: Ambulatory Orders Amlodipine Besylate 10 mg PO DAILY 04/07/18 Atorvastatin Ca [Lipitor] 40 mg PO HS 04/07/18 B Complex W-C No.20/Folic Acid [Triphrocaps Softgel] 1 mg PO 04/07/18 Clopidogrel Bisulfate [Clopidogrel] 75 mg PO 04/07/18 Gabapentin 100 mg PO DAILY 04/07/18 Labetalol HCl [Normodyne -] 200 mg PO BID 04/07/18 Lisinopril [Prinivil -] 40 mg PO DAILY 04/07/18 Zolpidem Tartrate [Ambien] 5 mg PO HS 04/07/18 Apixaban [Eliquis] 5 mg PO BID #60 tablet 04/12/18 Pantoprazole Sodium [Protonix -] 20 mg PO DAILY #30 tablet.ec 04/12/18 Polyethylene Glycol 3350 [Miralax (For Bowel Prep) -] 17 gm PO DAILY #1 bottle 04/12/18 Unobtainable 08/02/18 Family Disease History - Family Disease History Family Disease History: Other: Father (: 69: ND), Mother (: 69: diabetic complications), Brother (1, pancreatic cancer), Sister (1, healthy), Son (3, 1 with DM II), Daughter (1, healthy) Review of Systems Unable to obtain ROS, reason: pt intubated Physical Exam Vital Signs: Vital Signs Temperature 97.7 F 08/02/18 02:39 Pulse Rate 41 L 08/02/18 04:02 Respiratory Rate 17 08/02/18 05:53 Blood Pressure 120/59 L 08/02/18 04:02 O2 Sat by Pulse Oximetry (%) 100 08/02/18 04:02 Constitutional: Yes: Calm Eyes: Yes: PERRL HENT: Yes: Atraumatic, Normocephalic Neck: Yes: Supple, Trachea Midline. No: Lymphadenopathy Cardiovascular: Yes: Bradycardia Respiratory: Yes: CTA Bilaterally, Intubated Gastrointestinal: Yes: Normal Bowel Sounds, Soft Extremities: Yes: Other (right BKA) Edema: No Peripheral Pulses WNL: Yes (b/l radial pulses, left DP pulse normal) Neurological: Yes: Other (obtunded) Labs: CBC, BMP 08/02/18 03:40 08/02/18 03:40 Assessment/Plan 63 yr old man with DM, HTN, ESRD on HD presents with lethargy and AMS, now obtunded with severe hyperkalemia requiring intubation likely due to missed HD admitted to ICU for close monitoring - Neurological - Head CT to r/o stroke given AMS and multiple AC placed on jefferson hugger for hypothermia - Cardiovascular, hx of HTN and aifb, currently bradycardiac and hypotensive may need OG tube to continue oral AC if pt not stable to be extubate post- dialysis trop mildly elevated likely due to demand - Respiratory - intubated for airway protection with dilaudid for pain/agitation - Renal- urgent dialysis - hyperkalemia due to missed HD, bicarb drip, ca+ gluc trevino in place with foul appearing urine, u/a and ucx pending - Fluids, electrolytes, nutrition (FEN) - hyperkalemia s/p Ed interventions, awaiting urgent dialysis - Hematology - anemia - likely anemia of chronic disease - Endocrine - DM -ACHS BGM with NISS, currently NPO - Prophylaxis VTE - moderate risk, pt is on eliquis GI prophylaxis if remains in ICU
[2018-08-02 06:32] LABS: URINE APPEARANCE TURBID; URINE BILIRUBIN NEGATIVE (<2.0 mg/dL); URINE COLOR YELLOW; URINE GLUCOSE (UA) NEGATIVE (NEGATIVE); URINE KETONE NEGATIVE (NEGATIVE); URINE LEUK ESTERASE 2+ (NEGATIVE); URINE NITRITE NEGATIVE (NEGATIVE); URINE PROTEIN 2+ (NEGATIVE); URINE UROBILINOGEN NEGATIVE mg/dL (0.2-1.0)
[2018-08-02] MEDS ORDERED: HYDROmorphone HCl 2 MG/ML VIAL IVPUSH PRN (06:50)
[2018-08-02 06:58] LABS: URINE BACTERIA FEW /hpf (NONE SEEN); URINE MUCUS FEW
[2018-08-02] MEDS: PROPOFOL 1,000,000 MCG/100 ML VIAL IVPB SCH ×3 (09:35→20:36)
[2018-08-02] MEDS ORDERED: HEPARIN NA (PORCINE) 5,000 UNITS/ML 1ML VIAL SQ SCH (10:00)
[2018-08-02] MEDS ORDERED: DEXTROSE 5%-WATER - 50 ML IVPB ONE (10:15)
[2018-08-02] MEDS ORDERED: cefTRIAXone SODIUM 1 GM VIAL ONE (10:15)
--- NOTE | 2018-08-02 10:32 | HP ---
CHIEF COMPLAINT: Shortness of breath HISTORY OF PRESENT ILLNESS: Patient is intubated. History obtained from patients son. Patient is a 63 year old male presented to the ED via EMS with the complaint of Shortness of breath. As per patient's son, he missed dialysis due to cold weather. Started having shortness of breath. Also was complaining of chronic back pain radiating towards the leg. Symptoms got severe so his grandson called 911 and brought him to the ED. In the ED, patient's saturation was 60%, was less responsive and promptly intubated and transferred to ICU for further management. Son reports that patient had similar complaint two weeks ago was taken to [facility], imaging was done which was negative for acute pathology. Patient was in his usual state of health at home until 2 days ago. Ambulates with a cane, has a prosthetic right leg. ER course was notable for: (1) Hypothermic 95.2 F, bradycardic 48 bpm, INR 1.28, BUN 87/creatinine 12.4; Potassium 9.8, glucose 548 (2) EKG: Tall peaked T waves (3) calcium, sodium bicarbonate and insulin as well as kayexylate for severe hyperkalemia Recent Travel: None PAST MEDICAL HISTORY: Non compliance, ESRD on HD (due to diabetic nephropathy) , afib on eliquis, HTN, CAD s/p ALEC on plavix, DM, PVD s/p right leg amputation , CVA with residual right sided weakness 2002, carotid stenosis s/p CEA PAST SURGICAL HISTORY: As mentioned above Social History: Smoking: Denies Alcohol: Denies Drugs: Denies Family History: Non contributory OCCUPATION: retired, worked as a [employer] Allergies No Known Allergies Allergy (Verified 08/02/18 02:44) HOME MEDICATIONS: Home Medications Medication Instructions Recorded Amlodipine Besylate 10 mg PO DAILY 04/07/18 Atorvastatin Ca [Lipitor] 40 mg PO HS 04/07/18 B Complex W-C No.20/Folic Acid 1 mg PO 04/07/18 [Triphrocaps Softgel] Clopidogrel Bisulfate [Clopidogrel] 75 mg PO 04/07/18 Gabapentin 100 mg PO DAILY 04/07/18 Labetalol HCl [Normodyne -] 200 mg PO BID 04/07/18 Lisinopril [Prinivil -] 40 mg PO DAILY 04/07/18 Zolpidem Tartrate [Ambien] 5 mg PO HS 04/07/18 Apixaban [Eliquis] 5 mg PO BID #60 tablet 04/12/18 Pantoprazole Sodium [Protonix -] 20 mg PO DAILY #30 tablet.ec 04/12/18 Polyethylene Glycol 3350 [Miralax 17 gm PO DAILY #1 bottle 04/12/18 (For Bowel Prep) -] Unobtainable 08/02/18 REVIEW OF SYSTEMS: couldn't be obtained, currently intubated PHYSICAL EXAMINATION Vital Signs - 24 hr 08/02/18 08/02/18 08/02/18 02:39 03:00 03:15 Temperature 97.7 F Pulse Rate 56 L Pulse Rate [ 27 L Apical] Respiratory 17 13 20 Rate Blood Pressure 131/90 Blood Pressure 257/89 H [Left Arm] O2 Sat by Pulse 96 100 Oximetry (%) 08/02/18 08/02/18 08/02/18 04:00 04:02 04:08 Temperature 96.8 F L Pulse Rate 54 L Pulse Rate [ 41 L Apical] Respiratory 14 16 Rate Blood Pressure 109/54 L Blood Pressure 120/59 L [Left Arm] O2 Sat by Pulse 100 Oximetry (%) 08/02/18 08/02/18 08/02/18 05:53 06:07 06:40 Temperature Pulse Rate Pulse Rate [ 54 L Apical] Respiratory 17 14 Rate Blood Pressure Blood Pressure 139/68 [Left Arm] O2 Sat by Pulse 100 100 Oximetry (%) 08/02/18 08/02/18 08/02/18 07:00 07:20 07:30 Temperature 95.2 F L 95.2 F L Pulse Rate 48 L 48 L 48 L Pulse Rate [ Apical] Respiratory 14 14 14 Rate Blood Pressure 147/61 102/40 L 103/45 L Blood Pressure [Left Arm] O2 Sat by Pulse Oximetry (%) 08/02/18 08/02/18 08/02/18 07:36 08:00 08:30 Temperature 97.8 F Pulse Rate 70 60 Pulse Rate [ Apical] Respiratory 14 14 18 Rate Blood Pressure 109/54 L 119/54 L Blood Pressure [Left Arm] O2 Sat by Pulse Oximetry (%) 08/02/18 08/02/18 08/02/18 08:39 08:40 09:00 Temperature Pulse Rate 59 L 70 Pulse Rate [ Apical] Respiratory 15 18 Rate Blood Pressure 120/60 Blood Pressure [Left Arm] O2 Sat by Pulse 99 Oximetry (%) 08/02/18 08/02/18 08/02/18 09:30 09:44 10:00 Temperature 97.8 F Pulse Rate 70 71 Pulse Rate [ Apical] Respiratory 18 18 Rate Blood Pressure 126/66 146/62 Blood Pressure [Left Arm] O2 Sat by Pulse Oximetry (%) GENERAL: Middle aged male, not sedated, intubated. EYES: Pupils reacting to light. NECK: No JVD. LUNGS: B/L bibasilar crackles, no added sounds. HEART: Regular rate and rhythm, normal S1 and S2 with systolic murmur. ABDOMEN: Soft, nontender, no organomegaly, BS +. UPPER EXTREMITIES: 2+ pulses, warm, well-perfused. No cyanosis. No clubbing. No peripheral edema. AVF in the left arm. LOWER EXTREMITIES: 2+ pulses, warm, well-perfused. No calf tenderness. No peripheral edema. BKA R. NEUROLOGICAL: Intubated. Not sedated. SKIN: Warm, dry, normal turgor, no rashes or lesions noted, normal capillary refill. Laboratory Results - last 24 hr 08/02/18 08/02/18 08/02/18 03:28 03:40 03:40 WBC 10.5 H RBC 3.26 L Hgb 11.1 L Hct 34.2 L D MCV 104.7 H MCH 34.0 H D MCHC 32.5 RDW 18.1 H Plt Count 193 MPV 8.7 D Absolute Neuts (auto) 8.5 H Neutrophils % 80.8 Lymphocytes % 9.5 Monocytes % 6.6 Eosinophils % 2.3 Basophils % 0.8 Nucleated RBC % 0 PT with INR INR Anticoagulation Therapy No Result Required. Puncture Site Right femoral ABG pH 7.38 ABG pCO2 at Pt Temp 47.5 H ABG pO2 at Pt Temp 100.0 ABG HCO3 27.2 H ABG O2 Sat (Measured) 99.4 H ABG O2 Content 17.1 ABG Base Excess 2.0 Delmar Test No Result Required. O2 Delivery Device Mech vent Oxygen Flow Rate 100% Vent Mode A/c Vent Rate 20 Mechanical Rate Yes PEEP 5.0 Pressure Support Vent 450 Sodium 135 L Potassium 9.8 H* Chloride 99 Carbon Dioxide 27 Anion Gap 9 BUN 87 H Creatinine 12.4 H* Creat Clearance w eGFR 4.10 Random Glucose 547 H* Calcium 10.6 H Phosphorus 4.4 Magnesium 2.4 Total Bilirubin 1.2 H AST 33 ALT 47 Alkaline Phosphatase 69 Creatine Kinase 194 Creatine Kinase Index 2.1 CK-MB (CK-2) 4.2 H Troponin I 0.08 H Total Protein 5.5 L Albumin 3.0 L Urine Color Urine Appearance Urine pH Ur Specific [place] Urine Protein Urine Glucose (UA) Urine Ketones Urine Blood Urine Nitrite Urine Bilirubin Urine Urobilinogen Ur Leukocyte Esterase Urine WBC (Auto) Urine RBC (Auto) Urine Bacteria Urine Mucus Influenza A (Rapid) Influenza B (Rapid) 08/02/18 08/02/18 08/02/18 03:40 03:40 06:09 WBC RBC Hgb Hct MCV MCH MCHC RDW Plt Count MPV Absolute Neuts (auto) Neutrophils % Lymphocytes % Monocytes % Eosinophils % Basophils % Nucleated RBC % PT with INR 15.10 H INR 1.28 H Anticoagulation Therapy Puncture Site ABG pH ABG pCO2 at Pt Temp ABG pO2 at Pt Temp ABG HCO3 ABG O2 Sat (Measured) ABG O2 Content ABG Base Excess Delmar Test O2 Delivery Device Oxygen Flow Rate Vent Mode Vent Rate Mechanical Rate PEEP Pressure Support Vent Sodium Potassium Chloride Carbon Dioxide Anion Gap BUN Creatinine Creat Clearance w eGFR Random Glucose Calcium Phosphorus Cancelled Magnesium Cancelled Total Bilirubin AST ALT Alkaline Phosphatase Creatine Kinase Creatine Kinase Index CK-MB (CK-2) Troponin I Total Protein Albumin Urine Color Urine Appearance Urine pH Ur Specific [place] Urine Protein Urine Glucose (UA) Urine Ketones Urine Blood Urine Nitrite Urine Bilirubin Urine Urobilinogen Ur Leukocyte Esterase Urine WBC (Auto) Urine RBC (Auto) Urine Bacteria Urine Mucus Influenza A (Rapid) Negative Influenza B (Rapid) Negative 08/02/18 06:12 WBC RBC Hgb Hct MCV MCH MCHC RDW Plt Count MPV Absolute Neuts (auto) Neutrophils % Lymphocytes % Monocytes % Eosinophils % Basophils % Nucleated RBC % PT with INR INR Anticoagulation Therapy Puncture Site ABG pH ABG pCO2 at Pt Temp ABG pO2 at Pt Temp ABG HCO3 ABG O2 Sat (Measured) ABG O2 Content ABG Base Excess [place]mar Test O2 Delivery Device Oxygen Flow Rate Vent Mode Vent Rate Mechanical Rate PEEP Pressure Support Vent Sodium Potassium Chloride Carbon Dioxide Anion Gap BUN Creatinine Creat Clearance w eGFR Random Glucose Calcium Phosphorus Magnesium Total Bilirubin AST ALT Alkaline Phosphatase Creatine Kinase Creatine Kinase Index CK-MB (CK-2) Troponin I Total Protein Albumin Urine Color Yellow Urine Appearance Turbid Urine pH 7.0 Ur Specific [place] 1.016 Urine Protein 2+ H Urine Glucose (UA) Negative Urine Ketones Negative Urine Blood 2+ H Urine Nitrite Negative Urine Bilirubin Negative Urine Urobilinogen Negative Ur Leukocyte Esterase 2+ H Urine WBC (Auto) 1007 Urine RBC (Auto) 21 Urine Bacteria Few Urine Mucus Few Influenza A (Rapid) Influenza B (Rapid) ASSESSMENT/PLAN: Patient is a 63 year old male with significant past medical history of Non compliance, ESRD on HD (due to diabetic nephropathy), afib on eliquis, HTN, CAD s/p ALEC on plavix, DM, PVD s/p right leg amputation, CVA with residual right sided weakness 2002, carotid stenosis s/p CEA presented to the ED via EMS with the complaint of Shortness of breath. # Acute hypoxic respiratory failure likely secondary to fluid overload from ESRD - currently intubated Intubated in the ED and transferred to ICU. On IV Propofol Currently being dialysed. Sodium bicarb drip running Albuterol nebs IV Ceftraizone 1 gm daily # Hyperkalemia with significant EKG changes K 9.8; Was treated with calcium, sodium bicarbonate and insulin as well as kayexylate for severe hyperkalemia Currently being dialysed, to repeat labs after HD # Elevated troponin likely from demand ischemia Troponins 0.08---> trend Serial EKGs ECHO ordered # Macrocytic anemia H/H 11.1/34.2 MCV 104 # Afib on Eliquis Continue Eliquis 5mg PO BID # CAD s/p stents Continue Plavix 75 mg Daily # FEN Not on IV fluids, currently being dialysed Electrolytes to be repeated NPO # Prophylaxis For DVT: On eliquis For GI: Start on IV Protonix # Code Status: Full Code # Dispo:Admitted in ICU. Duration of stay unknown. Illness, Investigation and Plan of care explained to the patient's son. He verbalized understanding. Case discussed with Dr. Bello Barnhart. Visit type - Emergency Visit Emergency Visit: Yes ED Registration Date: 08/02/18 Care time: The patient presented to the Emergency Department on the above date and was hospitalized for further evaluation of their emergent condition. - New Patient This patient is new to me today: Yes Date on this admission: 08/02/18 - Critical Care Critical Care patient: Yes Total Critical Care Time (in minutes): 35 Critical Care Statement: The care of this patient involved high complexity decision making to prevent further life threatening deterioration of the patient 's condition and/or to evaluate & treat vital organ system(s) failure or risk of failure.
--- NOTE | 2018-08-02 11:27 | PN ---
Teaching Attending Note Name of Resident: Giovanna Gannon ATTENDING PHYSICIAN STATEMENT I saw and evaluated the patient. I reviewed the resident's note and discussed the case with the resident. I agree with the resident's findings and plan as documented. SUBJECTIVE: Pt seen and examined in the ICU. Intubated, asynchronous with vent on emergent HD. No pressors. Purulent drainage from trevino. OBJECTIVE: Vital Signs Period Temp Pulse Resp BP Sys/Gonzáles Pulse Ox Last 24 Hr 95.2 F-97.8 F 27-84 13-20 102-257/40-90 96-100 Intake & Output 07/30/18 07/31/18 08/01/18 08/02/18 23:59 23:59 23:59 23:59 Output Total 10 Balance -10 Weight 78.1 kg Gen: intubated, sedated Heart: RRR Lung: decreased breath sounds at the bases Abd: soft, nontender Ext: R BKA CBC, BMP 08/02/18 03:40 08/02/18 03:40 Active Medications Albuterol Sulfate (Ventolin 0.083% Nebulizer Soln -) 1 amp NEB Q15M PRN PRN Reason: ELEVATED BLOOD SUGAR Apixaban (Eliquis -) 5 mg PO BID [facility] Chlorhexidine Gluconate (Hibiclens For Decolonization -) 1 applic TP HS [facility] Clopidogrel Bisulfate (Plavix -) 75 mg PO DAILY [facility] Hydromorphone HCl (Dilaudid Vial -) 1 mg IVPUSH ONCE PRN PRN Reason: PAIN LEVEL 7 - 10 Last Admin: 08/02/18 07:08 Dose: 1 mg Sodium Chloride (Normal Saline -) 250 mls @ 3,000 mls/hr IV PRN PRN PRN Reason: Hypotension during Dialysis Stop: 08/03/18 05:17 Propofol (Diprivan -) 1,000,000 mcg in 100 mls @ 2.343 mls/hr IVPB TITR MIKAYLA; Protocol Last Titration: 08/02/18 10:36 Dose: 25 mcg/kg/min, 11.715 mls/hr Ceftriaxone Sodium 1 gm/ (Dextrose) 50 mls @ 100 mls/hr IVPB DAILY [facility] Mupirocin (Bactroban Ointment (For Decolonization) -) 1 applic NS BID MIKAYLA Stop: 01/27/19 09:59 ASSESSMENT AND PLAN: Altered Mental Status Acute Respiratory Failure Severe Hyperkalemia ESRD on HD UTI r/o Pyelonephritis CAD +Troponins likely Demand Ischemia Atrial Fibrillation DM HTN - HD per renal - monitor lytes - start antibiotics - f/u cultures - send lactate - check renal/bladder sono - trend cardiac enzymes - rate control - continue anticoagulation - taper FiO2 to keep SpO2 >90% - sedate for vent synchrony - once lytes stable, can lighten sedation to assess mental status - spontaneous breathing trials as tolerated when mental status improved - DVT prophylaxis - continue ICU monitoring critical care time spent in reviewing chart, evaluating patient and formulating plan 35 min
[2018-08-02] MEDS: CEFTRIAXONE 1 GM in DEXTROSE 5%-WATER - 50 ML IVPB SCH (11:35)
[2018-08-02] MEDS ORDERED: PT OWN MED DRAWER 7, Y5N ONE (13:26)
[2018-08-02] MEDS: CLOPIDOGREL BISULFATE 75 MG TABLET (FP) PO SCH (13:28)
[2018-08-02] MEDS: APIXABAN 5 MG TABLET PO SCH ×2 (13:28→21:51)
--- NOTE | 2018-08-02 14:11 | PN ---
Progress Note (short form) - Note Progress Note: SUBJECTIVE Patient seen and examined at the bedside. Intubated and sedated. Undergoing dialysis OBJECTIVE Vital Signs Temperature 97.8 F 08/02/18 10:00 Pulse Rate 75 08/02/18 12:30 Respiratory Rate 15 08/02/18 14:02 Blood Pressure 159/67 08/02/18 12:30 O2 Sat by Pulse Oximetry (%) 99 08/02/18 09:25 General: Intubated Head: No signs of trauma Eyes: PERRL ENT: Dry mucus membranes Neck: Supple Lungs: Lungs clear Cardio: Bradycardic, S1 and S2 present Abdomen: Soft, nondistended Extremities: R. BKA, Distal pulses present SKIN: Warm, Dry, normal turgor Neurologic: Sedated ASSESSMENT 63Yo with history of ESRD (on HD MWF), HTN, HLD, PVD/PAD s/p R. BKA, Afib (on ASA, Plavix, Coumadin), CAD s/p stent presenting to the ED with altered mental status and respiratory distress. Patient missed dialysis session on Wednesday. Found to have elevated K=9.8 and peaked t waves on EKG, hyperglycemic at 547. Given insulin, kayexalate, albuterol, and calicum gluconate. Intubated for airway protection. Found to be bradycardic into the 30s and given epinephrine. Undergoing emergent dialysis. PLAN NEURO Patient on sedation because he is intubated CV Bradycardia, Hypotension Anemia -Hgb=11.1 -Follow H/H Chronic HTN Chronic HLD Chronic Afib -Give home anticoagulation if patient can tolerate po after dialysis, if not, will insert NG tube -R. EJ placed for access Tpn=0.08, elevated -may be due to demand ischemia but will trend PULMONARY Intubated FiO2 decreased to 40 from 50 AC: 14/450/5/40 RENAL Missed hemodialysis K=9.8, peaked t waves on EKG -Nephrology following -Undergoing emergent dialysis -Repeat labs for 2pm ID UA: 2+ LE, WBC 1007, Few bacteria -Treating with 1g Rocephin WBC=10.5 Follow urine cultures Blood cultures ordered Tmin=95.2, on Sylvia hugger ENDOCRINE DM -hyperglycemic, fmk=467 -BGM, NISS FEN Monitor electrolytes K=9.8 -Undergoing dialysis PPX DVT: Give home anticoagulation if patient can tolerate po after dialysis, if not , will insert NG tube GI: Give ppx if unable to extubate after dialysis
[2018-08-02] MEDS ORDERED: hydrALAZINE HCL 20 MG/ML VIAL IVPUSH ONE (14:57)
--- NOTE | 2018-08-02 15:14 | ECHO ---
Name: TATE HERRON Exam:Adult Echocardiogram Study Date: 08/02/2018 02:23 PM Age: 63 yrs Reason For Study: EF WALL MOTION ABNORMALITIES Height: 71 in Weight: 172 lb BSA: 2.0 m2 BP: 75/70 mmHg MMode/2D Measurements & Calculations IVSd: 0.96 cm Ao root diam: 2.8 cm LVIDd: 5.6 cm LA dimension: 3.8 cm LVIDs: 3.7 cm LVPWd: 0.91 cm EDV(Teich): 154.1 ml LVOT diam: 2.2 cm ESV(Teich): 56.6 ml Doppler Measurements & Calculations MV E max shahid: 96.7 cm/sec Ao V2 max: 218.5 cm/sec MV A max shahid: 58.2 cm/sec Ao max P.1 mmHg MV E/A: 1.7 Ao V2 mean: 137.1 cm/sec MV dec time: 0.23 sec Ao mean P.6 mmHg Ao V2 VTI: 43.9 cm LAWRENCE(I,D): 1.7 cm2 LAWRENCE(V,D): 2.0 cm2 LV V1 max P.2 mmHg MR max shahid: 469.1 cm/sec LV V1 mean P.9 mmHg MR max P.0 mmHg LV V1 max: 114.5 cm/sec LV V1 mean: 63.0 cm/sec LV V1 VTI: 19.3 cm SV(LVOT): 75.5 ml TR max shahid: 149.9 cm/sec TR max P.0 mmHg PI end-d shahid: 73.0 cm/sec Med Peak E' Shahid: 4.7 cm/sec Med E/e': 20.5 Lat Peak E' Shahid: 7.6 cm/sec Lat E/e': 12.8 Left Ventricle The left ventricular size, thickness and function are normal. Ejection Fraction = 65. The transmitral spectral Doppler flow pattern is suggestive of impaired LV relaxation. Right Ventricle The right ventricle is normal in size and function. Atria Normal left and right atrial size and function. Mitral Valve There is moderate mitral annular calcification. There is mild mitral regurgitation. Tricuspid Valve The tricuspid valve is not well visualized. There is mild tricuspid regurgitation. Aortic Valve There is mild aortic sclerosis.;. Pulmonic Valve The pulmonic valve is not well seen, but is grossly normal. Great Vessels The aortic root is normal size. Normal aortic arch, descending and ascending aorta. Pericardium/Pleura There is no pericardial effusion. Interpretation Summary The left ventricular size, thickness and function are normal Ejection Fraction = 65. The transmitral spectral Doppler flow pattern is suggestive of impaired LV relaxation. The right ventricle is normal in size and function. Normal left and right atrial size and function. There is moderate mitral annular calcification. There is mild mitral regurgitation. The tricuspid valve is not well visualized. There is mild tricuspid regurgitation. There is mild aortic sclerosis.; The pulmonic valve is not well seen, but is grossly normal. The aortic root is normal size. Normal aortic arch, descending and ascending aorta There is no pericardial effusion. Sesar Zeng 08/02/2018 03:14 PM
--- NOTE | 2018-08-02 15:21 | CONSULT ---
Consult - text type - Consultation Consultation Note: Renal Consult for ESRD with Severe Hyperkalemia This is a 63 year old gentleman with hx of ESRD on HD (from diabetic nephropathy), Hypertension, DM, PVD s/o right BKA who presented from home with difficulty breathing s/p missed dialysis with K of 9.8 and bradycardia. Pt currently in the ICU and is intubated via ET tube. No able to provide further history. Discussed history with sob who reports he only missed one dialysis but has been known to have high potassium. Pt had emergent dialysis this am in the ICU. Tolerated it well. HR and BP improved. PMhx: as above Allergies: NKDA Social Hx: Unknown Family Hx: NC ROS: unable to obtain Home Medications Medication Instructions Recorded Amlodipine Besylate 10 mg PO DAILY 04/07/18 Atorvastatin Ca [Lipitor] 40 mg PO HS 04/07/18 B Complex W-C No.20/Folic Acid 1 mg PO 04/07/18 [Triphrocaps Softgel] Clopidogrel Bisulfate [Clopidogrel] 75 mg PO 04/07/18 Gabapentin 100 mg PO DAILY 04/07/18 Labetalol HCl [Normodyne -] 200 mg PO BID 04/07/18 Lisinopril [Prinivil -] 40 mg PO DAILY 04/07/18 Zolpidem Tartrate [Ambien] 5 mg PO HS 04/07/18 Apixaban [Eliquis] 5 mg PO BID #60 tablet 04/12/18 Pantoprazole Sodium [Protonix -] 20 mg PO DAILY #30 tablet.ec 04/12/18 Polyethylene Glycol 3350 [Miralax 17 gm PO DAILY #1 bottle 04/12/18 (For Bowel Prep) -] Unobtainable 08/02/18 Vital Signs Temperature 98.3 F 08/02/18 14:00 Pulse Rate 70 08/02/18 14:00 Respiratory Rate 15 08/02/18 14:02 Blood Pressure 175/70 H 08/02/18 14:00 O2 Sat by Pulse Oximetry (%) 99 08/02/18 09:25 Intake & Output 07/30/18 07/31/18 08/01/18 08/02/18 23:59 23:59 23:59 23:59 Output Total 110 Balance -110 Weight 78.1 kg Intubated on vent RRR CTA soft NT/ND No LE edema, right BKA trevino in place CBC, BMP 08/02/18 03:40 08/02/18 03:40 Current Medications Albuterol Sulfate (Ventolin 0.083% Nebulizer Soln -) 1 amp NEB Q15M PRN PRN Reason: ELEVATED BLOOD SUGAR Apixaban (Eliquis -) 5 mg PO BID [facility] Last Admin: 08/02/18 13:28 Dose: 5 mg Chlorhexidine Gluconate (Hibiclens For Decolonization -) 1 applic TP HS [facility] Clopidogrel Bisulfate (Plavix -) 75 mg PO DAILY [facility] Last Admin: 08/02/18 13:28 Dose: 75 mg Hydromorphone HCl (Dilaudid Vial -) 1 mg IVPUSH ONCE PRN PRN Reason: PAIN LEVEL 7 - 10 Last Admin: 08/02/18 07:08 Dose: 1 mg Sodium Chloride (Normal Saline -) 250 mls @ 3,000 mls/hr IV PRN PRN PRN Reason: Hypotension during Dialysis Stop: 08/03/18 05:17 Propofol (Diprivan -) 1,000,000 mcg in 100 mls @ 2.343 mls/hr IVPB TITR [facility]; Protocol Last Admin: 08/02/18 13:29 Dose: 35 mcg/kg/min, 16.401 mls/hr Ceftriaxone Sodium 1 gm/ (Dextrose) 50 mls @ 100 mls/hr IVPB DAILY [facility] Last Admin: 08/02/18 11:35 Dose: 100 mls/hr Mupirocin (Bactroban Ointment (For Decolonization) -) 1 applic NS BID [facility] Stop: 08/07/18 09:59 63 year old gentleman with hx of ESRD on HD (from diabetic nephropathy), Hypertension, DM, PVD s/o right BKA who presented from home with difficulty breathing s/p missed dialysis with K of 9.8 and bradycardia. #Severe Hyperkalemia #ESRD on HD #Hypertension #CKD related Anemia s/p emergent HD this am for 4.5 hours repeat K is pending access was functioning well during the treatment and thus unlikely that pt has stenosis leading to hyperkalemia Vent support as per CIU Trend BP if remains high can restart labetalol if pt is actually taking Lisinopril at home it may be prudent to discontinue it given his tendency for sever hyperkalemia. Trend H/H Thank you Will follow Kenji Sung DO
--- NOTE | 2018-08-02 16:29 | EKG ---
Test Reason : Blood Pressure : / mmHG Vent. Rate : 041 BPM Atrial Rate : 042 BPM P-R Int : 000 ms QRS Dur : 172 ms QT Int : 582 ms P-R-T Axes : 000 -73 068 degrees QTc Int : 480 ms WIDE QRS RHYTHM LEFT AXIS DEVIATION LEFT BUNDLE BRANCH BLOCK R/O Hyperkalemia ABNORMAL ECG Confirmed by MD DEENA, WALKER ([id number]) on 08/02/2018 4:28:46 PM Referred By: Confirmed By:WALKER SHAFFER MD
--- NOTE | 2018-08-02 16:47 | PN ---
Teaching Attending Note Name of Resident: Sharyn Cunningham ATTENDING PHYSICIAN STATEMENT I saw and evaluated the patient. I reviewed the resident's note and discussed the case with the resident. I agree with the resident's findings and plan as documented. SUBJECTIVE: S/P Intubation in the ED after OBJECTIVE: Vital Signs Period Temp Pulse Resp BP Sys/Gonzáles Pulse Ox Last 24 Hr 95.2 F-98.3 F 27-94 13-23 102-257/40-90 96-100 GEN: Sedated with propofol , restless HEENT:ETT at pace mm moist NECK: No JVd No Bruit CHEST: Minimal basal crepts CVS: S1S2 R no m/g/r ABD; No distention, non tender Bs + EXT: RT BKA, no edema, pulses feebler ARBORER: sedated CBC,CMP WBC 10.5 K/mm3 (4.0-10.0) H 08/02/18 03:40 RBC 3.26 M/mm3 (4.00-5.60) L 08/02/18 03:40 Hgb 11.1 GM/dL (11.7-16.9) L 08/02/18 03:40 Hct 34.2 % (35.4-49) L D 08/02/18 03:40 MCV 104.7 fl (80-96) H 08/02/18 03:40 MCH 34.0 pg (25.7-33.7) H D 08/02/18 03:40 MCHC 32.5 g/dl (32.0-35.9) 08/02/18 03:40 RDW 18.1 % (11.9-15.9) H 08/02/18 03:40 Plt Count 193 K/MM3 (134-434) 08/02/18 03:40 MPV 8.7 fl (7.5-11.1) D 08/02/18 03:40 Absolute Neuts (auto) 8.5 K/mm3 (1.5-8.0) H 08/02/18 03:40 Neutrophils % 80.8 % (42.8-82.8) 08/02/18 03:40 Lymphocytes % 9.5 % (8-40) 08/02/18 03:40 Monocytes % 6.6 % (3.8-10.2) 08/02/18 03:40 Eosinophils % 2.3 % (0-4.5) 08/02/18 03:40 Basophils % 0.8 % (0-2.0) 08/02/18 03:40 Nucleated RBC % 0 % (0-0) 08/02/18 03:40 Sodium 135 mmol/L (136-145) L 08/02/18 03:40 Potassium 9.8 mmol/L (3.5-5.1) H* 08/02/18 03:40 Chloride 99 mmol/L (98-107) 08/02/18 03:40 Carbon Dioxide 27 mmol/L (21-32) 08/02/18 03:40 Anion Gap 9 MMOL/L (8-16) 08/02/18 03:40 BUN 87 mg/dL (7-18) H 08/02/18 03:40 Creatinine 12.4 mg/dL (0.55-1.3) H* 08/02/18 03:40 Creat Clearance w eGFR 4.10 (>60) 08/02/18 03:40 Random Glucose 547 mg/dL (74-106) H* 08/02/18 03:40 Lactic Acid 0.9 mmol/L (0.4-2.0) 08/02/18 12:30 Calcium 10.6 mg/dL (8.5-10.1) H 08/02/18 03:40 Phosphorus 4.4 mg/dL (2.5-4.9) 08/02/18 03:40 Magnesium 2.4 mg/dL (1.8-2.4) 08/02/18 03:40 Total Bilirubin 1.2 mg/dL (0.2-1) H 08/02/18 03:40 AST 33 U/L (15-37) 08/02/18 03:40 ALT 47 U/L (13-61) 08/02/18 03:40 Alkaline Phosphatase 69 U/L (45-117) 08/02/18 03:40 Creatine Kinase 129 U/L (26-308) 08/02/18 14:30 Creatine Kinase Index 2.1 % (0.0-5.0) 08/02/18 03:40 CK-MB (CK-2) 4.2 ng/mL (0.5-3.6) H 08/02/18 03:40 Troponin I 0.08 ng/ml (0.00-0.05) H 08/02/18 14:30 Total Protein 5.5 g/dl (6.4-8.2) L 08/02/18 03:40 Albumin 3.0 g/dl (3.4-5.0) L 08/02/18 03:40 CXR: Pulmoanry congestion EKG; HR 47 tall t wave ECHO; Normal EF Active Medications Albuterol Sulfate (Ventolin 0.083% Nebulizer Soln -) 1 amp NEB Q15M PRN PRN Reason: ELEVATED BLOOD SUGAR Apixaban (Eliquis -) 5 mg PO BID [facility] Last Admin: 08/02/18 13:28 Dose: 5 mg Chlorhexidine Gluconate (Hibiclens For Decolonization -) 1 applic TP HS [facility] Chlorhexidine Gluconate (Peridex -) 15 ml MM BID [facility] Clopidogrel Bisulfate (Plavix -) 75 mg PO DAILY [facility] Last Admin: 08/02/18 13:28 Dose: 75 mg Hydromorphone HCl (Dilaudid Vial -) 1 mg IVPUSH ONCE PRN PRN Reason: PAIN LEVEL 7 - 10 Last Admin: 08/02/18 07:08 Dose: 1 mg Sodium Chloride (Normal Saline -) 250 mls @ 3,000 mls/hr IV PRN PRN PRN Reason: Hypotension during Dialysis Stop: 08/03/18 05:17 Propofol (Diprivan -) 1,000,000 mcg in 100 mls @ 2.343 mls/hr IVPB TITR [facility]; Protocol Last Admin: 08/02/18 13:29 Dose: 35 mcg/kg/min, 16.401 mls/hr Ceftriaxone Sodium 1 gm/ (Dextrose) 50 mls @ 100 mls/hr IVPB DAILY [facility] Last Admin: 08/02/18 11:35 Dose: 100 mls/hr Mupirocin (Bactroban Ointment (For Decolonization) -) 1 applic NS BID [facility] Stop: 08/07/18 09:59 ASSESSMENT AND PLAN:63 yr old man CKD stage 5 secondary to Diabetic Nephropathy on HD , afib on eliquis, HTN, CAD s/p ALEC on plavix,T2 DM, PVD s/p riRT BKA , missed HD and was noted by grandson to be lethargic. Pt was evaluated in the ED found to have peaked T-waves on EKG, received albuterol+ insulin+Ca gluc+ kayexalate tx for hyperkalemia. pt was intubated when he could no longer protect his airway and became bradycardic. Respiratory Failure: Due to volume over load and s/p intubation recived HD on IV abx and nebs, Vent management as per critical care team; ESRD: on HD last was on Wednesday missed Wednesday , non complint with food present with Hy[erkalemia 8.9 with bradycardia recived Cock tail (Insulin, albuterol, Calgluconate bicarb abd Kayxelate)and dialysis renal management as per Nephrology F/U BMP. 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
[2018-08-02 16:53] LABS: ANION GAP 8 MMOL/L (8-16); BLOOD UREA NITROGEN 19 mg/dL (7-18); CHLORIDE 105 mmol/L (98-107); CO2 34 mmol/L (21-32); CREATININE 4.6 mg/dL (0.55-1.3); GLUCOSE,RANDOM 93 mg/dL (74-106); POTASSIUM 4.5 mmol/L (3.5-5.1); SODIUM 147 mmol/L (136-145)
[2018-08-02] MEDS: MUPIROCIN 2% TOPICAL OINTMENT FOR DECOLONIZATION NS SCH ×2 (18:05→21:50)
--- NOTE | 2018-08-02 19:29 | PDOC ---
*Physical Exam - Vital Signs Last Vital Signs Temp Pulse Resp BP Pulse Ox 98.5 F 84 16 148/64 99 08/02/18 18:00 08/02/18 18:00 08/02/18 18:42 08/02/18 18:00 08/02/18 09:25 ED Treatment Course - LABORATORY CBC & Chemistry Diagram: 08/02/18 03:40 08/02/18 14:30 - ADDITIONAL ORDERS Additional order review: 08/02/18 03:40 RBC 3.26 L MCV 104.7 H MCHC 32.5 RDW 18.1 H MPV 8.7 D Neutrophils % 80.8 Lymphocytes % 9.5 Monocytes % 6.6 Eosinophils % 2.3 Basophils % 0.8 - RADIOLOGY Radiology Studies Ordered: Category Date Time Status CHEST X-RAY PORTABLE* [RAD] Stat Radiology 08/02/18 03:38 Completed - Medications Given in the ED: ED Medications Discontinued Medications Generic Name Dose Route Start Last Admin Trade Name Freq PRN Reason Stop Dose Admin Calcium Chloride 1 gm 08/02/18 04:03 08/02/18 04:35 Calcium Chloride 10% - IVPUSH 08/02/18 04:04 1 gm ONCE ONE Administration Calcium Gluconate 1,000 mg 08/02/18 04:04 08/02/18 04:35 Calcium Gluconate 10% - IVPUSH 08/02/18 04:05 1,000 mg ONCE ONE Administration Calcium Gluconate 1,000 mg 08/02/18 04:04 08/02/18 04:04 Calcium Gluconate 10% - IVPUSH 08/02/18 04:05 1,000 mg ONCE ONE Administration Calcium Gluconate 1,000 mg 08/02/18 04:44 08/02/18 05:03 Calcium Gluconate 10% - IVPUSH 08/02/18 04:45 1,000 mg ONCE ONE Administration Dextrose 25 gm 08/02/18 04:06 08/02/18 04:36 D50w (Vial) - IVPUSH 08/02/18 04:07 25 gm NOW ONE Administration Dextrose 25 gm 08/02/18 17:39 08/02/18 17:57 D50w (Vial) - IVPUSH 08/02/18 17:40 25 gm NOW ONE Administration Epinephrine 7.7 mg 08/02/18 04:05 08/02/18 04:36 Adrenalin Intracardiac 1:10,000 - 0.1 mg/kg (7.7 mg) 08/02/18 04:06 7.7 mg IVPUSH Administration ONCE ONE Furosemide 40 mg 08/02/18 04:53 08/02/18 05:03 Lasix Injection - IVPUSH 08/02/18 04:54 40 mg ONCE ONE Administration Hydralazine HCl 10 mg 08/02/18 14:57 08/02/18 15:24 Apresoline Injection - IVPUSH 08/02/18 14:58 10 mg ONCE ONE Administration Calcium Gluconate 11,000 mg/ 1,110 mls @ 50 mls/hr 08/02/18 05:30 08/02/18 06 :00 Dextrose/Sodium Chloride IVPB 50 mls/hr [facility] Administration Sodium Bicarbonate 150 meq/ 1,150 mls @ 150 mls/hr 08/02/18 05:30 08/02/18 06 :00 Dextrose/Sodium Chloride IVPB 150 mls/hr [facility] Administration Propofol 1,000,000 mcg in 100 mls @ 2.313 mls/hr 08/02/18 05:30 08/02/18 05: 44 Diprivan - IVPB Not Given TITR [facility] Protocol 5 MCG/KG/MIN Insulin Human Regular 10 units 08/02/18 04:06 08/02/18 04:36 Novolin R Vial *For Ivpush Or Iv Drip Only* IVPUSH 08/02/18 04:07 10 units ONCE ONE Administration Insulin Human Regular 10 units 08/02/18 04:52 08/02/18 05:03 Novolin R Vial *For Ivpush Or Iv Drip Only* IVPUSH 08/02/18 04:53 10 units ONCE ONE Administration Rocuronium [place] 46 mg 08/02/18 04:04 08/02/18 04:35 Zemuron - 0.6 mg/kg (46 mg) 08/02/18 04:05 46 mg IVPUSH Administration ONCE ONE Sodium Bicarbonate 4.2 meq 08/02/18 04:08 08/02/18 04:36 Sodium Bicarbonate 4.2% - IVPUSH 08/02/18 04:09 4.2 meq ONCE ONE Administration Sodium Bicarbonate 4.2 meq 08/02/18 04:09 08/02/18 04:36 Sodium Bicarbonate 4.2% - IVPUSH 08/02/18 04:10 4.2 meq ONCE ONE Administration Sodium Bicarbonate 4.2 meq 08/02/18 04:42 08/02/18 04:50 Sodium Bicarbonate 4.2% - IVPUSH 08/02/18 04:43 4.2 meq ONCE ONE Administration Sodium Bicarbonate 150 meq 08/02/18 05:15 08/02/18 06:00 Sodium Bicarbonate 8.4% - IV 08/02/18 05:16 Not Given ONCE ONE Sodium Polystyrene Sulfonate 30 gm 08/02/18 03:49 08/02/18 04:35 Kayexalate - PO 08/02/18 03:50 30 gm ONCE ONE Administration *DC/Admit/Observation/Transfer Diagnosis at time of Disposition: End-stage renal disease - Discharge Dispostion Condition at time of disposition: Fair Decision to Admit order: Yes - Referrals - Patient Instructions - Post Discharge Activity Intubation - Intubation Reason for Intubation: Respiratory Failure, Airway Protection Time of Intubation: 03:30 Intubation Method: orotracheal Blade used: Mac Tube Size (cm): 7.5 Tube position @ lip (cm): 24 Tube position confirmed by: Direct visualization, CO2 detector, Chest x-ray, Breath sounds Breath Sounds after Intubation: equal Post Intubation Xray: Yes (ETT in place)
[2018-08-02] MEDS: CHLORHEXIDINE GLUCONATE 0.12% 15ML CUP MM SCH (21:51)
[2018-08-02] MEDS ORDERED: MIDAZOLAM HCL 2 MG/2 ML SINGLE DOSE VIAL IVPUSH ONE (21:57)
[2018-08-02] MEDS ORDERED: CHLORHEXIDINE GLUCONATE 4% CLEANSER FOR DECOLONIZATION TP SCH (22:00)
[2018-08-02] MEDS ORDERED: fentaNYL CITRATE 250 MCG/5 ML VIAL ONE ×2 (23:39→23:40)
[2018-08-02] MEDS ORDERED: FENTANYL INJECTION 500 MCG in DEXTROSE 5%-WATER - 90 ML IVPB SCH (23:45)
[2018-08-03] MEDS: PROPOFOL 1,000,000 MCG/100 ML VIAL IVPB SCH ×2 (02:23)
[2018-08-03 04:14] LABS: HBSAG SCREEN Negative (Negative); HEP B CORE AB, TOT Negative (Negative)
[2018-08-03 06:24] LABS: BASO % 0.8 % (0-2.0); EOS % 2.3 % (0-4.5); HEMATOCRIT 34.2 % (35.4-49); HEMOGLOBIN 11.1 GM/dL (11.7-16.9); LYMPH % 16.3 % (8-40); MCH 33.9 pg (25.7-33.7); MCHC 32.4 g/dl (32.0-35.9); MEAN CELL VOLUME 104.6 fl (80-96); MEAN PLT VOLUME 8.1 fl (7.5-11.1); MONO % 13.8 % (3.8-10.2); NEUT % 66.8 % (42.8-82.8); PLATELET COUNT 167 K/MM3 (134-434); RBC 3.27 M/mm3 (4.00-5.60); RDW 18.3 % (11.9-15.9); WHITE BLOOD COUNT 8.3 K/mm3 (4.0-10.0)
[2018-08-03 07:09] LABS: ALBUMIN 2.8 g/dl (3.4-5.0); ALK PHOS 73 U/L (45-117); ANION GAP 9 MMOL/L (8-16); BILIRUBIN,TOTAL 0.8 mg/dL (0.2-1); BLOOD UREA NITROGEN 26 mg/dL (7-18); CALCIUM 8.3 mg/dL (8.5-10.1); CHLORIDE 104 mmol/L (98-107); CO2 32 mmol/L (21-32); CREATININE 6.5 mg/dL (0.55-1.3); GLUCOSE,RANDOM 80 mg/dL (74-106); PHOSPHOROUS 4.5 mg/dL (2.5-4.9); POTASSIUM 4.8 mmol/L (3.5-5.1); SGOT/AST 23 U/L (15-37); SGPT/ALT 41 U/L (13-61); SODIUM 144 mmol/L (136-145); TOT PROT 5.7 g/dl (6.4-8.2)
[2018-08-03] MEDS ORDERED: amLODIPine BESYLATE 10 MG TABLET (FP) PO ONE (08:10)
[2018-08-03] MEDS ORDERED: hydrALAZINE HCL 20 MG/ML VIAL IVPUSH ONE (08:37)
[2018-08-03] MEDS ORDERED: DEXTROSE 5%-WATER - 50 ML IVPB ONE (09:08)
[2018-08-03] MEDS ORDERED: cefTRIAXone SODIUM 1 GM VIAL ONE (09:08)
[2018-08-03] MEDS: CEFTRIAXONE 1 GM in DEXTROSE 5%-WATER - 50 ML IVPB SCH (09:12)
[2018-08-03] MEDS: CLOPIDOGREL BISULFATE 75 MG TABLET (FP) PO SCH (09:12)
[2018-08-03] MEDS: APIXABAN 5 MG TABLET PO SCH ×2 (09:12→21:30)
[2018-08-03] MEDS: CHLORHEXIDINE GLUCONATE 0.12% 15ML CUP MM SCH (09:13)
[2018-08-03] MEDS: MUPIROCIN 2% TOPICAL OINTMENT FOR DECOLONIZATION NS SCH (09:13)
[2018-08-03] MEDS ORDERED: LABETALOL HCL 200 MG TABLET (FP) PO SCH ×3 (10:00→22:23)
[2018-08-03] MEDS ORDERED: GABAPENTIN 100 MG CAPSULE (FP) PO SCH ×2 (10:00→14:00)
--- NOTE | 2018-08-03 11:25 | PN ---
Progress Note (short form) - Note Progress Note: Renal follow up for ESRD with Severe Hyperkalemia Pt seen and examined at the ICU extubated awake and alert complains of pain in right arm no sob, cp, abd pain, fever, chills Vital Signs Temperature 98 F 08/03/18 10:00 Pulse Rate 88 08/03/18 10:00 Respiratory Rate 16 08/03/18 10:00 Blood Pressure 160/70 08/03/18 10:00 O2 Sat by Pulse Oximetry (%) 100 08/02/18 22:00 Intake & Output 07/31/18 08/01/18 08/02/18 08/03/18 23:59 23:59 23:59 23:59 Intake Total 400 406 Output Total 115 0 Balance 285 406 Weight 78.1 kg 78.8 kg NAD on NC O2 RRR CTA soft NT/ND No LE edema, right BKA trevnio in place CBC, BMP 08/03/18 05:30 08/03/18 05:30 Current Medications Albuterol Sulfate (Ventolin 0.083% Nebulizer Soln -) 1 amp NEB Q15M PRN PRN Reason: ELEVATED BLOOD SUGAR Amlodipine Besylate (Norvasc -) 10 mg PO DAILY [facility] Apixaban (Eliquis -) 5 mg PO BID [facility] Last Admin: 08/03/18 09:12 Dose: 5 mg Atorvastatin Calcium (Lipitor -) 40 mg PO HS [facility] Chlorhexidine Gluconate (Hibiclens For Decolonization -) 1 applic TP HS [facility] Last Admin: 08/02/18 21:51 Dose: 1 applic Chlorhexidine Gluconate (Peridex -) 15 ml MM BID [facility] Last Admin: 08/03/18 09:13 Dose: 15 ml Clopidogrel Bisulfate (Plavix -) 75 mg PO DAILY [facility] Last Admin: 08/03/18 09:12 Dose: 75 mg Gabapentin (Neurontin -) 100 mg PO TID [facility] Hydromorphone HCl (Dilaudid Vial -) 1 mg IVPUSH ONCE PRN PRN Reason: PAIN LEVEL 7 - 10 Last Admin: 08/02/18 07:08 Dose: 1 mg Sodium Chloride (Normal Saline -) 250 mls @ 3,000 mls/hr IV PRN PRN PRN Reason: Hypotension during Dialysis Stop: 08/03/18 05:17 Propofol (Diprivan -) 1,000,000 mcg in 100 mls @ 2.343 mls/hr IVPB TITR [facility]; Protocol Last Admin: 08/03/18 02:23 Dose: 60 mcg/kg/min, 28.116 mls/hr Ceftriaxone Sodium 1 gm/ (Dextrose) 50 mls @ 100 mls/hr IVPB DAILY [facility] Last Admin: 08/03/18 09:12 Dose: 100 mls/hr Fentanyl 500 mcg/ Dextrose 100 mls @ 10 mls/hr IVPB TITR [facility]; Protocol Stop: 08/03/18 23:44 Last Admin: 08/03/18 00:36 Dose: 50 mcg/hr, 10 mls/hr Labetalol HCl (Normodyne -) 200 mg PO BID [facility] Last Admin: 08/03/18 09:13 Dose: 200 mg Mupirocin (Bactroban Ointment (For Decolonization) -) 1 applic NS BID [facility] Stop: 08/07/18 09:59 Last Admin: 08/03/18 09:13 Dose: 1 applic 63 year old gentleman with hx of ESRD on HD (from diabetic nephropathy), Hypertension, DM, PVD s/o right BKA who presented from home with difficulty breathing s/p missed dialysis with K of 9.8 and bradycardia. #Severe Hyperkalemia #ESRD on HD #Hypertension #CKD related Anemia Potassium is improved and stable today, no urgent indication for [employer]UAL [employer] ACC[employer]ANT will plan for next treatment tomorrow Continue Renal diet Will request Nutrition education about low potassium diet Would not restart Lisinopril given hyperkalemia Can titrate Labetalol as needed to obtain optimal blood pressure control Kenji Sung DO
--- NOTE | 2018-08-03 11:25 | PN ---
Teaching Attending Note Name of Resident: Javier Cedeno ATTENDING PHYSICIAN STATEMENT I saw and evaluated the patient. I reviewed the resident's note and discussed the case with the resident. I agree with the resident's findings and plan as documented. SUBJECTIVE: Pt seen and examined in the ICU. Extubated earlier this AM. Denies shortness of breath or chest pain. Mental status improved. Potassium improved. OBJECTIVE: Vital Signs Period Temp Pulse Resp BP Sys/Gonzáles Pulse Ox Last 24 Hr 98 F-99 F 65-94 14-26 142-197/55-83 99-100 Intake & Output 07/31/18 08/01/18 08/02/18 08/03/18 23:59 23:59 23:59 23:59 Intake Total 400 406 Output Total 115 0 Balance 285 406 Weight 78.1 kg 78.8 kg Gen: NAD at rest Heart: RRR Lung: decreased breath sounds at the bases Abd: soft, nontender Ext: no edema CBC, BMP 08/03/18 05:30 08/03/18 05:30 Active Medications Albuterol Sulfate (Ventolin 0.083% Nebulizer Soln -) 1 amp NEB Q15M PRN PRN Reason: ELEVATED BLOOD SUGAR Amlodipine Besylate (Norvasc -) 10 mg PO DAILY [facility] Apixaban (Eliquis -) 5 mg PO BID [facility] Last Admin: 08/03/18 09:12 Dose: 5 mg Atorvastatin Calcium (Lipitor -) 40 mg PO HS [facility] Chlorhexidine Gluconate (Hibiclens For Decolonization -) 1 applic TP HS [facility] Last Admin: 08/02/18 21:51 Dose: 1 applic Chlorhexidine Gluconate (Peridex -) 15 ml MM BID [facility] Last Admin: 08/03/18 09:13 Dose: 15 ml Clopidogrel Bisulfate (Plavix -) 75 mg PO DAILY [facility] Last Admin: 08/03/18 09:12 Dose: 75 mg Gabapentin (Neurontin -) 100 mg PO TID [facility] Hydromorphone HCl (Dilaudid Vial -) 1 mg IVPUSH ONCE PRN PRN Reason: PAIN LEVEL 7 - 10 Last Admin: 08/02/18 07:08 Dose: 1 mg Sodium Chloride (Normal Saline -) 250 mls @ 3,000 mls/hr IV PRN PRN PRN Reason: Hypotension during Dialysis Stop: 08/03/18 05:17 Propofol (Diprivan -) 1,000,000 mcg in 100 mls @ 2.343 mls/hr IVPB TITR [facility]; Protocol Last Admin: 08/03/18 02:23 Dose: 60 mcg/kg/min, 28.116 mls/hr Ceftriaxone Sodium 1 gm/ (Dextrose) 50 mls @ 100 mls/hr IVPB DAILY [facility] Last Admin: 08/03/18 09:12 Dose: 100 mls/hr Fentanyl 500 mcg/ Dextrose 100 mls @ 10 mls/hr IVPB TITR [facility]; Protocol Stop: 08/03/18 23:44 Last Admin: 08/03/18 00:36 Dose: 50 mcg/hr, 10 mls/hr Labetalol HCl (Normodyne -) 200 mg PO BID [facility] Last Admin: 08/03/18 09:13 Dose: 200 mg Mupirocin (Bactroban Ointment (For Decolonization) -) 1 applic NS BID [facility] Stop: 08/07/18 09:59 Last Admin: 08/03/18 09:13 Dose: 1 applic ASSESSMENT AND PLAN: Altered Mental Status improved s/p Acute Respiratory Failure Severe Hyperkalemia improved ESRD on HD UTI CAD +Troponins likely Demand Ischemia Atrial Fibrillation DM HTN - HD per renal - monitor lytes - continue antibiotics - f/u cultures - rate control - continue anticoagulation - taper FiO2 to keep SpO2 >90% - PO as tolerated - DVT prophylaxis - can transfer to floors after HD today critical care time spent in reviewing chart, evaluating patient and formulating plan 35 min
[2018-08-03] MEDS ORDERED: SODIUM CHLORIDE 250 ML IV PRN ×2 (11:26→15:37)
--- NOTE | 2018-08-03 11:33 | PN ---
Physical Exam: ICU team SUBJECTIVE: Patient seen and examined had an elevated BP over night with systolic 189 , intubated sedated sedation vacation and extubation trial today control BP OBJECTIVE: Vital Signs Period Temp Pulse Resp BP Sys/Gonzáles Pulse Ox Last 24 Hr 98 F-99 F 65-94 14-26 142-197/55-83 99-100 GENERAL: intubated sedated HEAD: NC/AT EYES: PERRL, ENT: MMM NECK: Trachea midline, no JVD LUNGS: decrease breath sounds at the bases HEART: Afib , S1, S2 without murmur, rub or gallop. ABDOMEN: Soft, nontender, nondistended, normoactive bowel sounds, no guarding, no rebound, EXTREMITIES: 2+ pulses, warm, well-perfused, no edema. Right BKA , left big toe amputated NEUROLOGICAL: intubated sedated SKIN: Warm, dry, Laboratory Results - last 24 hr 08/02/18 08/02/18 08/02/18 09:25 09:25 12:30 WBC RBC Hgb Hct MCV MCH MCHC RDW Plt Count MPV Absolute Neuts (auto) Neutrophils % Lymphocytes % Monocytes % Eosinophils % Basophils % Nucleated RBC % Sodium Potassium Chloride Carbon Dioxide Anion Gap BUN Creatinine Creat Clearance w eGFR Random Glucose Lactic Acid 0.9 Calcium Phosphorus Magnesium Total Bilirubin AST ALT Alkaline Phosphatase Creatine Kinase Troponin I Total Protein Albumin Hepatitis A Ab Total Negative Hep Bs Antigen Negative Hep Bs Antibody Non reactive Hep B Core Total Ab Negative Hep C Ab Diagnostic 0.1 08/02/18 08/03/18 08/03/18 14:30 05:30 05:30 WBC 8.3 RBC 3.27 L Hgb 11.1 L Hct 34.2 L MCV 104.6 H MCH 33.9 H MCHC 32.4 RDW 18.3 H Plt Count 167 MPV 8.1 Absolute Neuts (auto) 5.6 Neutrophils % 66.8 Lymphocytes % 16.3 D Monocytes % 13.8 H D Eosinophils % 2.3 Basophils % 0.8 Nucleated RBC % 0 Sodium 147 H 144 Potassium 4.5 4.8 Chloride 105 104 Carbon Dioxide 34 H 32 Anion Gap 8 9 BUN 19 H 26 H Creatinine 4.6 H 6.5 H Creat Clearance w eGFR 12.89 8.65 Random Glucose 93 80 Lactic Acid Calcium 8.0 L 8.3 L Phosphorus 4.5 Magnesium 2.0 Total Bilirubin 0.8 AST 23 ALT 41 Alkaline Phosphatase 73 Creatine Kinase 129 Troponin I 0.08 H Total Protein 5.7 L Albumin 2.8 L Hepatitis A Ab Total Hep Bs Antigen Hep Bs Antibody Hep B Core Total Ab Hep C Ab Diagnostic Active Medications Generic Name Dose Route Start Last Admin Trade Name Freq PRN Reason Stop Dose Admin Albuterol Sulfate 1 amp 08/02/18 04:02 Ventolin 0.083% Nebulizer Soln - NEB Q15M PRN ELEVATED BLOOD SUGAR Amlodipine Besylate 10 mg 08/04/18 10:00 Norvasc - PO DAILY MIKAYLA Apixaban 5 mg 08/02/18 10:00 08/03/18 09:12 Eliquis - PO 5 mg BID MIKAYLA Administration Atorvastatin Calcium 40 mg 08/03/18 22:00 Lipitor - PO HS MIKAYLA Chlorhexidine Gluconate 1 applic 08/02/18 22:00 08/02/18 21:51 Hibiclens For Decolonization - TP 1 applic HS MIKAYLA Administration Chlorhexidine Gluconate 15 ml 08/02/18 22:00 08/03/18 09:13 Peridex - MM 15 ml BID MIKAYLA Administration Clopidogrel Bisulfate 75 mg 08/02/18 10:00 08/03/18 09:12 Plavix - PO 75 mg DAILY MIKAYLA Administration Gabapentin 100 mg 08/03/18 14:00 Neurontin - PO TID MIKAYLA Heparin Sodium (Porcine) 500 unit 08/04/18 06:00 Heparin - IVPUSH 08/04/18 06:01 ONCE ONE Heparin Sodium (Porcine) 500 unit 08/04/18 07:00 Heparin - IVPUSH 08/04/18 09:01 Q1H MIKAYLA Hydromorphone HCl 1 mg 08/02/18 06:50 08/02/18 07:08 Dilaudid Vial - IVPUSH 1 mg ONCE PRN Administration PAIN LEVEL 7 - 10 Sodium Chloride 250 mls @ 3,000 mls/hr 08/02/18 05:16 Normal Saline - IV 08/03/18 05:17 PRN PRN Hypotension during Dialysis Propofol 1,000,000 mcg in 100 mls @ 2.343 mls/hr 08/02/18 09:30 08/03/18 02: 23 Diprivan - IVPB 60 mcg/kg/min TITR MIKAYLA 28.116 mls/hr Administration Protocol 5 MCG/KG/MIN Ceftriaxone Sodium 1 gm/ 50 mls @ 100 mls/hr 08/02/18 10:00 08/03/18 09:12 Dextrose IVPB 100 mls/hr DAILY MIKAYLA Administration Fentanyl 500 mcg/ Dextrose 100 mls @ 10 mls/hr 08/02/18 23:45 08/03/18 00:36 IVPB 08/03/18 23:44 50 mcg/hr TITR MIKAYLA 10 mls/hr Administration Protocol 50 MCG/HR Sodium Chloride 250 mls @ 3,000 mls/hr 08/03/18 11:26 Normal Saline - IV 08/04/18 11:26 PRN PRN Hypotension during Dialysis Labetalol HCl 200 mg 08/03/18 10:00 08/03/18 09:13 Normodyne - PO 200 mg BID MIKAYLA Administration Mupirocin 1 applic 08/02/18 10:00 08/03/18 09:13 Bactroban Ointment (For Decolonization) - NS 08/07/18 09:59 1 applic BID MIKAYLA Administration CBC, BMP 08/03/18 05:30 08/03/18 05:30 ASSESSMENT/PLAN: 63Yo with history of ESRD (on HD MWF), HTN, HLD, PVD/PAD s/p R. BKA, Afib (on ASA, Plavix, Coumadin), CAD s/p stent presenting to the ED with altered mental status and respiratory distress. Patient missed dialysis session on Wednesday. Found to have elevated K=9.8 and peaked t waves on EKG, hyperglycemic at 547. Given insulin, kayexalate, albuterol, and calicum gluconate. Intubated for airway protection. Found to be bradycardic into the 30s and given epinephrine. Undergoing emergent dialysis. PLAN NEURO intubated sedated sedation vacation trial of extubation today CV Bradycardia,hypertensive Anemia -Hgb=11.1 -Follow H/H Chronic HTN Chronic HLD Chronic Afib -continue home anticoagulation Tpn=0.08, elevated likely due to renal failure resume BP meds Norvasc and Toprol Xl hold Lisinopril in term of hyperkalemia PULMONARY Intubated, sedated FiO2 decreased 60 AC: 14/450/5/40 sedation vacation and extubation trial today RENAL Missed hemodialysis K=9.8, peaked t waves on EKG, K 4.5 today -Nephrology following -Undergoing emergent dialysis yesterday -Repeat labs -[facility] nephrology on case -HD tomorrow Dietition consult renal diet ID UA: 2+ LE, WBC 1007, Few bacteria -Treating with 1g Rocephin WBC=10.5 Follow urine cultures Blood cultures ordered Tmin=95.2, on Sylvia hugger ENDOCRINE DM -hyperglycemic, -BGM, NISS FEN Monitor electrolytes K=9.8----4.5 Renal diet PPX DVT: Give home anticoagulation if patient can tolerate po after dialysis, GI: ppx Transferred to regular floor if tolerated extubation and good mental status . Visit type - Emergency Visit Emergency Visit: Yes ED Registration Date: 08/02/18 Care time: The patient presented to the Emergency Department on the above date and was hospitalized for further evaluation of their emergent condition. - New Patient This patient is new to me today: No - Critical Care Critical Care patient: Yes Total Critical Care Time (in minutes): 45 Critical Care Statement: The care of this patient involved high complexity decision making to prevent further life threatening deterioration of the patient 's condition and/or to evaluate & treat vital organ system(s) failure or risk of failure.
--- NOTE | 2018-08-03 15:12 | PN ---
Teaching Attending Note Name of Resident: Israel Mccormick ATTENDING PHYSICIAN STATEMENT I saw and evaluated the patient. I reviewed the resident's note and discussed the case with the resident. I agree with the resident's findings and plan as documented. SUBJECTIVE: seen 10 min after extubation no fever or chills . No pain. he denies SOB. has chronic back pain. OBJECTIVE: NAD , awake, alert, knows name, year, not place . CV: RRR. 3/6 SM at RUSB and apex. ABd: soft, NT, ND , NL BS . Ext : no edema on LE, R BKA , L arm AV fistula ASSESSMENT AND PLAN: 63 y/o man with h/o HTN, ESRD, DM, CAD, s/p stenting, A fib , PVD, R BKA who presented with SOB after missing HD , and was found to have severe hyperkalemia with EKG changes, and acute resp failure 1- Acute resp failure, now s/p extubation. clear lungs on exam. monitor on NC. 2- Severe hyperkalemia. resolved . - HD tomorrow . - avoid future lisinopril - appreciate nephrology help 3- HTN: uncontrolled. - cont norvasc - increase labatalol - off ACEI 4- ESRD: s/p HD yesterday. next tomorrow 5- UTI: cont ceftriaxone follow final urine cx. 2 GN organisms 6- HLOC. tx out of Icu
[2018-08-03] MEDS ORDERED: ALBUTEROL SO4 0.083% IH SOL 2.5 MG/3 ML VIAL.NEB. NEB PRN ×2 (15:37→18:46)
[2018-08-03] MEDS ORDERED: HYDROmorphone HCl 2 MG/ML VIAL IVPUSH PRN (15:37)
--- NOTE | 2018-08-03 16:04 | PN ---
Physical Exam: SUBJECTIVE: Patient seen and examined at bedside. No acute events overnight. OBJECTIVE: Vital Signs Temperature 98 F 08/03/18 10:00 Pulse Rate 85 08/03/18 14:00 Respiratory Rate 18 08/03/18 14:00 Blood Pressure 162/68 08/03/18 14:00 O2 Sat by Pulse Oximetry (%) 100 08/03/18 11:00 GENERAL: Middle aged male, not sedated, intubated. EYES: Pupils reacting to light. NECK: No JVD. LUNGS: B/L bibasilar crackles, no added sounds. HEART: Regular rate and rhythm, normal S1 and S2 with systolic murmur. ABDOMEN: Soft, nontender, no organomegaly, BS+ UPPER EXTREMITIES: 2+ pulses, warm, well-perfused. No cyanosis. No clubbing. No peripheral edema. AVF in the left arm with palpable thrill. LOWER EXTREMITIES: 2+ L dorsalis pedis pulse, warm, well-perfused. No calf tenderness. No peripheral edema. R BKA. L 1st toe amputation, partial L 2nd to amputation. NEUROLOGICAL: Grimaces to pain. SKIN: Warm, dry, normal turgor, no rashes or lesions noted, normal capillary refill. CBC, BMP 08/03/18 05:30 08/03/18 05:30 Active Medications Albuterol Sulfate (Ventolin 0.083% Nebulizer Soln -) 1 amp NEB Q15M PRN PRN Reason: ELEVATED BLOOD SUGAR Amlodipine Besylate (Norvasc -) 10 mg PO DAILY MIKAYLA Apixaban (Eliquis -) 5 mg PO BID MIKAYLA Atorvastatin Calcium (Lipitor -) 40 mg PO HS MIKAYLA Clopidogrel Bisulfate (Plavix -) 75 mg PO DAILY MIKAYLA Gabapentin (Neurontin -) 100 mg PO TID MIKAYLA Heparin Sodium (Porcine) (Heparin -) 500 unit IVPUSH ONCE ONE Stop: 08/04/18 06:01 Hydromorphone HCl (Dilaudid Vial -) 1 mg IVPUSH ONCE PRN PRN Reason: PAIN LEVEL 7 - 10 Sodium Chloride (Normal Saline -) 250 mls @ 3,000 mls/hr IV PRN PRN PRN Reason: Hypotension during Dialysis Stop: 08/04/18 11:26 Ceftriaxone Sodium 1 gm/ (Dextrose) 50 mls @ 100 mls/hr IVPB DAILY MIKAYLA Labetalol HCl (Normodyne -) 200 mg PO BID MIKAYLA ASSESSMENT/PLAN: 63M with h/o HTN, ESRD, DM, CAD, s/p stenting, A fib , PVD, R BKA who presented with SOB after missing HD, and was found to have severe hyperkalemia with EKG changes, and acute resp failure. #Acute hypoxic respiratory failure; s/p extubation. Likely 2/2 fluid overload from ESRD due to missed HD session -currently 100% on 3L NC. -cont to monitor #Severe hyperkalemia. Resolved. K+ 4.8 today. Initial presentation likely 2/2 missed HD session. -HD tomorrow. -avoid future Lisinopril #HTN: uncontrolled. -Norvasc 10 mg PO QD -Labetolol increased to 300 mg PO BID -off ACEI due to hyperkalemia #ESRD; HD MWF. BUN/Cr 25/6.5. -HD tomorrow -cont to monitor BMP #UTI -Cont Ceftriaxone 1gm QD IVPB (started 08/02) -UCx +LFGNB #Prophylaxis -DVT: On Eliquis 5 mg PO BID #FEN -PO hydration -recheck lytes (K+) in AM -renal diet dispo -transfer to med surg -full code Visit type - Emergency Visit Emergency Visit: Yes ED Registration Date: 08/02/18 Care time: The patient presented to the Emergency Department on the above date and was hospitalized for further evaluation of their emergent condition. - New Patient This patient is new to me today: Yes Date on this admission: 08/03/18 - Critical Care Critical Care patient: Yes Total Critical Care Time (in minutes): 35 Critical Care Statement: The care of this patient involved high complexity decision making to prevent further life threatening deterioration of the patient 's condition and/or to evaluate & treat vital organ system(s) failure or risk of failure.
[2018-08-03] MEDS ORDERED: ZOLPIDEM TARTRATE 5 MG TABLET PO ONE (20:30)
[2018-08-03] MEDS ORDERED: PT OWN MED DRAWER 7, Y5N ONE (21:25)
[2018-08-03] MEDS: ATORVASTATIN CA 40 MG TABLET (FP) PO SCH (21:30)
[2018-08-03] MEDS: GABAPENTIN 100 MG CAPSULE (FP) PO SCH (21:30)
[2018-08-03] MEDS ORDERED: ATORVASTATIN CA 40 MG TABLET (FP) PO SCH (22:00)
[2018-08-04] MEDS ORDERED: HEPARIN NA (PORCINE) 5,000 UNITS/ML 1ML VIAL IVPUSH ONE ×2 (06:00→09:20)
[2018-08-04] MEDS: GABAPENTIN 100 MG CAPSULE (FP) PO SCH ×3 (06:52→21:14)
[2018-08-04] MEDS ORDERED: HEPARIN NA (PORCINE) 5,000 UNITS/ML 1ML VIAL IVPUSH SCH (07:00)
[2018-08-04 09:18] LABS: BASO % 0.9 % (0-2.0); EOS % 5.2 % (0-4.5); HEMATOCRIT 33.1 % (35.4-49); HEMOGLOBIN 10.7 GM/dL (11.7-16.9); LYMPH % 14.3 % (8-40); MCH 33.7 pg (25.7-33.7); MCHC 32.2 g/dl (32.0-35.9); MEAN CELL VOLUME 104.5 fl (80-96); MEAN PLT VOLUME 8.5 fl (7.5-11.1); MONO % 11.8 % (3.8-10.2); NEUT % 67.8 % (42.8-82.8); PLATELET COUNT 163 K/MM3 (134-434); RBC 3.17 M/mm3 (4.00-5.60); RDW 17.7 % (11.9-15.9); WHITE BLOOD COUNT 5.8 K/mm3 (4.0-10.0)
[2018-08-04 09:42] LABS: ANION GAP 11 MMOL/L (8-16); BLOOD UREA NITROGEN 42 mg/dL (7-18); CALCIUM 8.5 mg/dL (8.5-10.1); CHLORIDE 104 mmol/L (98-107); CO2 31 mmol/L (21-32); GLUCOSE,RANDOM 125 mg/dL (74-106); MAGNESIUM 2.2 mg/dL (1.8-2.4); POTASSIUM 4.5 mmol/L (3.5-5.1); SODIUM 146 mmol/L (136-145)
--- NOTE | 2018-08-04 09:47 | PN ---
Progress Note (short form) - Note Progress Note: Appears overall better In HD. Breathing feels OK. No acute events overnight. Intake & Output 08/01/18 08/02/18 08/03/18 08/04/18 23:59 23:59 23:59 23:59 Intake Total 400 556 Output Total 115 0 Balance 285 556 Weight 172 lb 2.896 oz 173 lb 11.588 oz 168 lb 6.4 oz Last Vital Signs Temp Pulse Resp BP Pulse Ox 98.6 F 71 18 152/57 L 94 L 08/04/18 08:15 08/04/18 08:50 08/04/18 08:50 08/04/18 08:50 08/03/18 21:00 Active Medications Amlodipine Besylate (Norvasc -) 10 mg PO DAILY [facility] Apixaban (Eliquis -) 5 mg PO BID [facility] Last Admin: 08/03/18 21:30 Dose: 5 mg Atorvastatin Calcium (Lipitor -) 40 mg PO HS [facility] Last Admin: 08/03/18 21:30 Dose: 40 mg Clopidogrel Bisulfate (Plavix -) 75 mg PO DAILY [facility] Gabapentin (Neurontin -) 100 mg PO TID [facility] Last Admin: 08/04/18 06:52 Dose: 100 mg Hydromorphone HCl (Dilaudid Vial -) 1 mg IVPUSH ONCE PRN PRN Reason: PAIN LEVEL 7 - 10 Sodium Chloride (Normal Saline -) 250 mls @ 3,000 mls/hr IV PRN PRN PRN Reason: Hypotension during Dialysis Stop: 08/04/18 11:26 Ceftriaxone Sodium 1 gm/ (Dextrose) 50 mls @ 100 mls/hr IVPB DAILY [facility] Labetalol HCl 200 mg/ (Labetalol HCl 100 mg) 300 mg PO BID [facility] OBJECTIVE: Gen: NAD at rest Heart: RRR Lung: few scattered rhonchi Abd: soft, nontender Ext: no edema Laboratory Results - last 24 hr 08/03/18 08/03/18 08/03/18 05:30 05:30 17:22 Sodium 144 Potassium 4.8 Chloride 104 Carbon Dioxide 32 Anion Gap 9 BUN 26 H Creatinine 6.5 H Creat Clearance w eGFR 8.65 POC Glucometer 82 Random Glucose 80 Hemoglobin A1c % 5.2 Calcium 8.3 L Phosphorus 4.5 Magnesium 2.0 Total Bilirubin 0.8 AST 23 ALT 41 Alkaline Phosphatase 73 Creatine Kinase 144 Troponin I 0.12 H Total Protein 5.7 L Albumin 2.8 L 08/03/18 08/04/18 08/04/18 20:51 06:22 08:30 Sodium 146 H Potassium 4.5 Chloride 104 Carbon Dioxide 31 Anion Gap 11 BUN 42 H Creatinine Creat Clearance w eGFR 5.51 POC Glucometer 92 82 Random Glucose 125 H Hemoglobin A1c % Calcium 8.5 Phosphorus 6.0 H Magnesium 2.2 Total Bilirubin AST ALT Alkaline Phosphatase Creatine Kinase Troponin I Total Protein Albumin ASSESSMENT AND PLAN: Altered Mental Status improved s/p Acute Respiratory Failure Severe Hyperkalemia improved ESRD on HD UTI CAD +Troponins likely Demand Ischemia Atrial Fibrillation DM HTN - HD per renal - ABX - rate control - AC - PO as tolerated - DVT prophylaxis Dr Feliciano
[2018-08-04] MEDS ORDERED: LABETALOL HCL 200 MG, LABETALOL HCL 100 MG PO SCH (10:00)
[2018-08-04] MEDS ORDERED: amLODIPine BESYLATE 10 MG TABLET (FP) PO SCH ×2 (10:00)
[2018-08-04] MEDS ORDERED: CLOPIDOGREL BISULFATE 75 MG TABLET (FP) PO SCH (10:00)
[2018-08-04] MEDS ORDERED: CEFTRIAXONE 1 GM in DEXTROSE 5%-WATER - 50 ML IVPB SCH (10:00)
[2018-08-04 10:21] LABS: CREATININE 9.6 mg/dL (0.55-1.3)
[2018-08-04] MEDS ORDERED: BENZOCAINE/MENTH/CETYLPYRD CL 1 EACH LOZENGE MM PRN (11:20)
--- NOTE | 2018-08-04 12:24 | EKG ---
Test Reason : Blood Pressure : / mmHG Vent. Rate : 042 BPM Atrial Rate : 227 BPM P-R Int : 000 ms QRS Dur : 132 ms QT Int : 468 ms P-R-T Axes : 000 079 043 degrees QTc Int : 390 ms WIDE QRS RHYTHM NON-SPECIFIC INTRA-VENTRICULAR CONDUCTION BLOCK CANNOT RULE OUT SEPTAL INFARCT , AGE UNDETERMINED ABNORMAL ECG WHEN COMPARED WITH ECG OF 02-AUG-2018 03:29, NO SIGNIFICANT CHANGE WAS FOUND Confirmed by AVNI GRAY, MICHELE ([id number]) on 08/04/2018 12:23:55 PM Referred By: Confirmed By:MICHELE HOLLY MD
--- NOTE | 2018-08-04 12:26 | PN ---
Teaching Attending Note Name of Resident: Violeta Sams ATTENDING PHYSICIAN STATEMENT I saw and evaluated the patient. I reviewed the resident's note and discussed the case with the resident. I agree with the resident's findings and plan as documented. SUBJECTIVE: seen in HD No fever or chills. No Abd pain, no EDDY . walked yesterday OBJECTIVE: NAD, cooperative CV: RRR. 3/6 SM at RUSB and apex. ABd: soft, NT, ND , NL BS . Ext : no edema on LE, R BKA , L arm AV fistula ASSESSMENT AND PLAN: 63 y/o man with h/o HTN, ESRD, DM, CAD, s/p stenting, A fib , PVD, R BKA who presented with SOB after missing HD , and was found to have severe hyperkalemia with EKG changes, and acute resp failure 1- Acute resp failure, s/p extubation. 2- Severe hyperkalemia. resolved . - HD being done today - avoid future lisinopril 3- HTN: was not given his Am labetalol and norvasc yet as in HD. BP elevated. - cont norvasc - increase labetalol to 400 BID - off ACEI 4- ESRD: HD today 5- UTI: U cx with Klebsiella. sensitivity reviewed. switch to po keflex and cont for total of 7 days 6- Dispo : will monitor BP after HD. if improved , then can dc home . PT eval pending
[2018-08-04] MEDS: CEPHALEXIN MONOHYDRATE 500 MG CAPSULE (UD) PO SCH ×2 (13:24→21:14)
[2018-08-04] MEDS: LABETALOL HCL 200 MG TABLET (FP) PO SCH ×2 (13:25→21:15)
[2018-08-04] MEDS: APIXABAN 5 MG TABLET PO SCH (13:25)
[2018-08-04] MEDS ORDERED: ALBUTEROL SO4 2.5/IPRATROPIUM 0.5 INH SOL 3 ML VIAL.NEB. NEB PRN (14:39)
--- NOTE | 2018-08-04 14:44 | PN ---
Progress Note (short form) - Note Progress Note: Renal follow up for ESRD with Severe Hyperkalemia Pt seen and examined at the bedside no acute complaints s/p dialysis this am w/o complication feels well Vital Signs Temperature 98.3 F 08/04/18 13:15 Pulse Rate 61 08/04/18 12:44 Respiratory Rate 18 08/04/18 13:40 Blood Pressure 181/73 H 08/04/18 13:15 O2 Sat by Pulse Oximetry (%) 92 L 08/04/18 13:40 Intake & Output 08/01/18 08/02/18 08/03/18 08/04/18 23:59 23:59 23:59 23:59 Intake Total 400 556 Output Total 115 0 Balance 285 556 Weight 78.1 kg 78.8 kg 76.385 kg NAD on NC O2 RRR CTA soft NT/ND No LE edema, right BKA trevino in place CBC, BMP 08/04/18 08:30 08/04/18 08:30 Current Medications Albuterol/Ipratropium (Duoneb -) 1 amp NEB Q6H PRN PRN Reason: SHORTNESS OF BREATH Amlodipine Besylate (Norvasc -) 10 mg PO DAILY [facility] Last Admin: 08/04/18 13:24 Dose: 10 mg Apixaban (Eliquis -) 5 mg PO BID [facility] Last Admin: 08/04/18 13:25 Dose: 5 mg Atorvastatin Calcium (Lipitor -) 40 mg PO HS [facility] Last Admin: 08/03/18 21:30 Dose: 40 mg Benzocaine/Menthol (Cepacol Lozenge -) 1 each MM PRN PRN PRN Reason: SORE THROAT Cephalexin HCl (Keflex -) 500 mg PO BID [facility] Last Admin: 08/04/18 13:24 Dose: 500 mg Clopidogrel Bisulfate (Plavix -) 75 mg PO DAILY [facility] Last Admin: 08/04/18 13:24 Dose: 75 mg Gabapentin (Neurontin -) 100 mg PO TID [facility] Last Admin: 08/04/18 13:24 Dose: 100 mg Hydromorphone HCl (Dilaudid Vial -) 1 mg IVPUSH ONCE PRN PRN Reason: PAIN LEVEL 7 - 10 Labetalol HCl (Normodyne -) 400 mg PO BID [facility] Last Admin: 08/04/18 13:25 Dose: 400 mg 63 year old gentleman with hx of ESRD on HD (from diabetic nephropathy), Hypertension, DM, PVD s/o right BKA who presented from home with difficulty breathing s/p missed dialysis with K of 9.8 and bradycardia. #Severe Hyperkalemia #ESRD on HD #Hypertension #CKD related Anemia Tolerated dialysis this am K is well controlled with dialysis and there is no access dysfunction educated pt on importance of low potassium diet and compliance with dialysis schedule discharge planning as per primary Kenji Sung DO
[2018-08-04 15:28] VITALS: BMI 23.4
[2018-08-04] MEDS ORDERED: guaiFENesin 600 MG TABLET.ER (FP) PO ONE (16:51)
[2018-08-04 18:12] VITALS: TEMP 98.4
[2018-08-04] MEDS: ATORVASTATIN CA 40 MG TABLET (FP) PO SCH (21:14)
[2018-08-04 21:26] VITALS: BP 180/79; PULSE 74
--- NOTE | 2018-08-05 00:09 | DS ---
Physical Exam: SUBJECTIVE: Patient seen and examined at bedside. No acute events overnight. OBJECTIVE: Vital Signs Period Temp Pulse Resp BP Sys/Gonzáles Pulse Ox Last 24 Hr 98.3 F-98.8 F 58-86 18-20 145-186/46-79 92-95 PHYSICAL EXAM GENERAL: Middle aged male, not sedated, intubated. EYES: Pupils reacting to light. NECK: No JVD. LUNGS: B/L bibasilar crackles, no added sounds. HEART: Regular rate and rhythm, normal S1 and S2 with systolic murmur. ABDOMEN: Soft, nontender, no organomegaly, BS+ UPPER EXTREMITIES: 2+ pulses, warm, well-perfused. No cyanosis. No clubbing. No peripheral edema. AVF in the left arm with palpable thrill. LOWER EXTREMITIES: 2+ L dorsalis pedis pulse, warm, well-perfused. No calf tenderness. No peripheral edema. R BKA. L 1st toe amputation, partial L 2nd to amputation. NEUROLOGICAL: Grimaces to pain. SKIN: Warm, dry, normal turgor, no rashes or lesions noted, normal capillary refill. LABS Laboratory Results - last 24 hr 08/02/18 08/02/18 08/02/18 17:37 19:04 23:11 WBC RBC Hgb Hct MCV MCH MCHC RDW Plt Count MPV Absolute Neuts (auto) Neutrophils % Lymphocytes % Monocytes % Eosinophils % Basophils % Nucleated RBC % Sodium Potassium Chloride Carbon Dioxide Anion Gap BUN Creatinine Creat Clearance w eGFR POC Glucometer 65.30865 140.86935 87.07530 Random Glucose Calcium Phosphorus Magnesium 08/03/18 08/04/18 08/04/18 05:38 06:22 08:30 WBC 5.8 RBC 3.17 L Hgb 10.7 L Hct 33.1 L MCV 104.5 H MCH 33.7 MCHC 32.2 RDW 17.7 H Plt Count 163 MPV 8.5 Absolute Neuts (auto) 3.9 Neutrophils % 67.8 Lymphocytes % 14.3 Monocytes % 11.8 H Eosinophils % 5.2 H D Basophils % 0.9 Nucleated RBC % 0 Sodium Potassium Chloride Carbon Dioxide Anion Gap BUN Creatinine Creat Clearance w eGFR POC Glucometer 84.29665 82 Random Glucose Calcium Phosphorus Magnesium 08/04/18 08/04/18 08/04/18 08:30 11:20 16:37 WBC RBC Hgb Hct MCV MCH MCHC RDW Plt Count MPV Absolute Neuts (auto) Neutrophils % Lymphocytes % Monocytes % Eosinophils % Basophils % Nucleated RBC % Sodium 146 H Potassium 4.5 Chloride 104 Carbon Dioxide 31 Anion Gap 11 BUN 42 H Creatinine 9.6 H* Creat Clearance w eGFR 5.51 POC Glucometer 119 92 Random Glucose 125 H Calcium 8.5 Phosphorus 6.0 H Magnesium 2.2 08/04/18 21:10 WBC RBC Hgb Hct MCV MCH MCHC RDW Plt Count MPV Absolute Neuts (auto) Neutrophils % Lymphocytes % Monocytes % Eosinophils % Basophils % Nucleated RBC % Sodium Potassium Chloride Carbon Dioxide Anion Gap BUN Creatinine Creat Clearance w eGFR POC Glucometer 83 Random Glucose Calcium Phosphorus Magnesium HOSPITAL COURSE: Date of Admission:08/02/18 63M with h/o HTN, ESRD, DM, CAD, s/p stenting, A fib , PVD, R BKA who presented with SOB after missing HD, and was found to have severe hyperkalemia with EKG changes, and acute resp failure. Pt was intubated and sedated, admitted to the ICU for further monitoring. He underwent emergent dialysis and given insulin, albuterol, calcium gluconate, bicarb, and kayexylate. Pt's K+ improved and was subsequently extubated after which he remained stable throughout hospital stay. Additionally, he was found to have UTI +Klebsiella pneumonia. He was discharged home and advised the importance of maintaining his dialysis schedule and to follow up with his PCP and pricing intern. He was also given Keflex for the UTI and advised to d/c Lisinopril and to increase dose of Labetolol for better BP control. Date of Discharge: 08/05/18 Minutes to complete discharge: 35 Discharge Summary Reason For Visit: ENDOTRACHEAL TUBE PRESENT,END STAGE RENAL DISEASE Condition: Improved - Instructions Diet, Activity, Other Instructions: You were admitted to the hospital for shortness of breath because you missed dialysis. Make sure not to miss dialysis again, or you could become sick. Due to your worsening shortness of breath, you were intubated in the hospital and needed to breathe through a machine, and you needed monitoring in the ICU. Your labs showed extremely high potassium levels and as a result, you underwent emergent hemodialysis. Your potassium normalized after dialysis. After dialysis , your breathing improved and you were extubated once you were able to breathe on your own. Additionally, we found that your urine culture suggested a urinary tract infection. You were given antibiotics in the hospital. You are being discharged home and you will need to finish antibiotics at home. MEDICATIONS We have made the follow changes to your medication(s): Please STOP taking Lisinopril as this may cause your potassium levels to increase. Please increase your dosage to Labetolol 400 mg twice a day by mouth to better control your blood pressure. We will prescribe more of this medication to your pharmacy. Additionally, please take the antibiotic Keflex 500 mg TWO TIMES A DAY by mouth for 5 more days. You may start taking this tonight. Your last dose will be on . take keflex after hemodialysis on hemodialysis days It is important that you continue your hemodialysis sessions as directed. REFERRALS Please follow up with your primary care physician within 1 week. If you don't have one, please make an appointment at our [facility] offices at [address] [place] [address], [address], [place] [address] ([phone]) Please follow up with your pricing intern, Dr. Nguyen, within 1 week. If you experience mental status changes, chest pain, shortness of breath, worsening fever/chills, nausea/vomiting, abdominal pain or other associated symptoms, please proceed to your nearest emergency room immediately. Disposition: HOME - Home Medications Comprehensive Discharge Medication List: Ambulatory Orders Amlodipine Besylate 10 mg PO DAILY 04/07/18 Atorvastatin Ca [Lipitor] 40 mg PO HS 04/07/18 Clopidogrel Bisulfate [Clopidogrel] 75 mg PO DAILY 04/07/18 Gabapentin 200 mg PO BID 04/07/18 Zolpidem Tartrate [Ambien] 5 mg PO HS 04/07/18 Apixaban [Eliquis] 5 mg PO BID #60 tablet 04/12/18 B Complex W-C No.20/Folic Acid [[place] Caps Softgel] 1 cap PO DAILY 08/03/18 Lidocaine 5% Patch [Lidoderm -] 2 patch TD DAILY 08/03/18 Pantoprazole Sodium [Protonix -] 20 mg PO DAILY 08/03/18 Cephalexin Monohydrate [Keflex -] 500 mg PO BID #9 capsule 08/04/18 Labetalol HCl [Normodyne -] 400 mg PO BID #60 tablet 08/04/18 This patient is new to me today: No Emergency Visit: Yes ED Registration Date: 08/02/18 Care time: The patient presented to the Emergency Department on the above date and was hospitalized for further evaluation of their emergent condition. Critical Care patient: No - Discharge Referral Referred to [facility] No
== END 2018-08-04 21:24 | disposition home or self-care (01) | DRG 682 ==
LOC: JER 02:35 → JERBED 04:00 → JICU 07:08 → J5S 08-03 15:30
PROVIDERS: ADMIT Internal Medicine; ATTEND Internal Medicine
PROC: 5A1945Z Respiratory Ventilation, 24-96 Consecutive Hours (ICD-10-PCS; principal; 2018-08-02)
PROC: 0BH17EZ Insertion of Endotracheal Airway into Trachea, Via Natural or Artificial Opening (ICD-10-PCS; 2018-08-02)
PROC: 5A1D70Z Performance of Urinary Filtration, Intermittent, Less than 6 Hours Per Day (ICD-10-PCS; 2018-08-04)
DX: I12.0 Hypertensive chronic kidney disease with stage 5 chronic kidney disease or end stage renal disease (principal); G93.41 Metabolic encephalopathy; J96.01 Acute respiratory failure with hypoxia; N18.6 End stage renal disease; I24.8 Other forms of acute ischemic heart disease; N39.0 Urinary tract infection, site not specified; E11.21 Type 2 diabetes mellitus with diabetic nephropathy; E87.5 Hyperkalemia; I48.91 Unspecified atrial fibrillation; D63.1 Anemia in chronic kidney disease; B96.1 Klebsiella pneumoniae [K. pneumoniae] as the cause of diseases classified elsewhere; I25.10 Atherosclerotic heart disease of native coronary artery without angina pectoris; R00.1 Bradycardia, unspecified; Z98.61 Coronary angioplasty status; E11.22 Type 2 diabetes mellitus with diabetic chronic kidney disease; Z99.2 Dependence on renal dialysis
CPT/HCPCS: 36415; 36600; 70450-TC; 71045-TC-FY; 76775-TC; 76856-TC; 80048; 80053; 81003; 81015; 82550; 82553; 82803; 82962; 83036; 83605; 83735; 84100; 84484; 85025; 85610; 86704; 86706; 86708; 86803; 87040; 87086; 87186; 87340; 87804; 93005; 93010; 93306-TC; 94002; 94640; 97116-GP; 97162-GP; 99285-25